=== PATIENT | female | born 1945 | race Hispanic/Latino ===

== ENCOUNTER 2017-01-07 11:47 | Observation (INO) | payer MEDICARE ==
[2017-01-07 11:59] VITALS: BMI 41.1
[2017-01-07 12:15] VITALS: RESP 18; TEMP 98.2
[2017-01-07] MEDS ORDERED: Tmp-Smz 800 mg-160 mg DS Tab PO STA (12:46)
[2017-01-07] MEDS ORDERED: TDAP Vaccine 0.5 mL Syr IM ONE (12:46)
--- NOTE | 2017-01-07 12:49 | ED PDOC ---
Arrival/HPI - General Chief Complaint: Female Genitourinary Time Seen by Provider: 01/07/17 12:14 Historian: Patient, Family - History of Present Illness Narrative History of Present Illness (Text): 01/07/17 15:24 71 yo F w/ pmh of DM, diverticulitis with h/o perforation requiring colostomy and reversal 5 years ago, presents with red, swollen and painful mass in the L buttock with possible infection. States that she has been using nystatin with no relief prompting ER visit. Denies any fever, chills, trauma, urinary symptoms , N/V, or abdominal pain. Of note, pt adds that her sugar has been in the 300s due to taking prednisone for possible Crohn's. Pt is also c/o 3 week h/o intermittent episodes of pain under the L breast which radiates to the upper abdomen, lasting for a few minutes, usually occurs when she is resting, is not related to exertion. Pt had an episode here of the same pain, which lasted for a few minutes and then subsided. States that she has a h/o a stomach ulcer in the past that perforated and she required surgery with a colostomy. Reports that her symptoms today feel similar to her prior episodes. Denies any N/V/D, melena, hematochezia, urinary symptoms, chest pain or SOB. States that she is currently following up with a GI doctor and has a f/ u appointment tomorrow since he had recent labs and an MRI done. MICHELLE Rodriguez Past Medical History - Provider Review Nursing Documentation Reviewed: Yes - Infectious Disease Hx of Infectious Diseases: None - Tetanus Immunization Tetanus Immunization: Unknown - Reproductive Menopause: Yes - Cardiac Hx Cardiac Disorders: Yes Hx Hypertension: Yes Hx Pacemaker: No - Pulmonary Hx Respiratory Disorders: Yes Hx Asthma: Yes - Neurological Hx Neurological Disorder: No Hx Paralysis: No - HEENT Hx HEENT Disorder: Yes Hx Deafness: (hearing aids both ears) Other/Comment: glasses - Renal Hx Renal Disorder: No - Endocrine/Metabolic Hx Endocrine Disorders: Yes Hx Diabetes Mellitus Type 2: Yes - Hematological/Oncological Hx Blood Disorders: No Hx Blood Transfusions: No Hx Blood Transfusion Reaction: No - Integumentary Hx Dermatological Disorder: No Hx Basal Cell Carcinoma: No Hx Eczema: No Hx Melanoma: No Hx Psoriasis: No Hx Squamous Cell Carcinoma: No - Musculoskeletal/Rheumatological Hx Musculoskeletal Disorders: Yes (OSTEO) Hx Back Pain: Yes - Gastrointestinal Hx Gastrointestinal Disorders: Yes Hx Crohn's Disease: Yes Hx Diverticulitis: Yes Hx Gall Bladder Disease: No Hx Gastroesophageal Reflux: No Hx Gastrointestinal Ulcer: No Hx Ileostomy: No Hx Liver Failure: No Hx Pancreatitis: No HX Swallowing Problems: No - Genitourinary/Gynecological Hx Genitourinary Disorders: No Hx Hematuria: No Hx Incontinence: No Hx Prostate Problems: No Hx Reproductive Disorders: No Hx Sexually Transmitted Diseases: No Hx Urinary Tract Infection: No - Psychiatric Hx Psychophysiologic Disorder: No Hx Emotional Abuse: No Hx Physical Abuse: No Hx Substance Use: No - Surgical History Other/Comment: R breast partial masectomy. colostomy/reverse - Anesthesia Hx Anesthesia: Yes Hx Anesthesia Reactions: Yes (RESP ARREST AFTER COLOSTOMY; NAUSEA/VOMITING) Hx Malignant Hyperthermia: No - Suicidal Assessment Feels Threatened In Home Enviroment: No Family/Social History - Physician Review Nursing Documentation Reviewed: Yes Family/Social History: No Known Family HX Smoking Status: Former Smoker Hx Alcohol Use: No Hx Substance Use: No Hx Substance Use Treatment: No Allergies/Home Meds Allergies/Adverse Reactions: Allergies EGG WHITES Adverse Reaction (Uncoded 01/07/17 11:58) RASH Home Medications: Home Meds Medication Instructions Recorded Confirmed GlipiZIDE [Glucotrol] 5 mg PO DAILY 11/07/13 01/07/17 metFORMIN [glucOPHAGE] 500 mg PO BID 11/07/13 01/07/17 Naproxen Sodium [Aleve] 2 tab PO QAM PRN 03/03/14 01/07/17 Lisinopril/Hydrochlorothiazide 1 tab PO QAM 05/23/15 01/07/17 [Lisinopril-Hctz 20-12.5 mg Tab] Cholecalciferol (Vitamin D3) 50,000 unit PO SAT 11/20/15 01/07/17 [Vitamin D3] oxyCODONE/Acetaminophen [Percocet 1 tab PO Q12H PRN 08/06/16 01/07/17 5/325 mg Tab] Prednisone [Deltasone] 20 mg PO BID 01/07/17 01/07/17 Review of Systems - Review of Systems Constitutional: Normal. absent: Fatigue, Weight Change, Fevers Respiratory: Normal. absent: SOB, Cough, Sputum Cardiovascular: Normal. absent: Chest Pain, Palpitations, Edema Gastrointestinal: Normal, Abdominal Pain. absent: Stool Changes, Constipation, Appetite Changes, Hematochezia Genitourinary Female: Normal. absent: Dysuria, Frequency, Hematuria Musculoskeletal: Normal. absent: Arthralgias, Back Pain, Neck Pain Skin: Normal, Rash, Abscess. absent: Pruritis, Skin Lesions Physical Exam Vital Signs Reviewed: Yes Vital Signs Temp Pulse Resp BP Pulse Ox 01/07/17 19:17 94 H 18 98 01/07/17 17:39 96 H 18 126/65 97 01/07/17 15:08 89 18 123/61 97 01/07/17 14:24 92 H 18 125/66 97 01/07/17 12:14 98.2 F 100 H 18 126/68 99 Temperature: Afebrile Blood Pressure: Normal Pulse: Regular Respiratory Rate: Normal Appearance: Positive for: Well-Appearing, Non-Toxic, Comfortable Pain Distress: None Mental Status: Positive for: Alert and Oriented X 3 - Systems Exam Head: Present: Atraumatic, Normocephalic Pupils: Present: PERRL Extroacular Muscles: Present: EOMI Conjunctiva: Present: Normal. No: Injected, Icteric Mouth: Present: Moist Mucous Membranes Neck: Present: Normal Range of Motion. No: MIDLINE TENDERNESS Respiratory/Chest: Present: Clear to Auscultation, Good Air Exchange. No: Respiratory Distress, Accessory Muscle Use, Wheezes, Rales, Rhonchi Cardiovascular: Present: Regular Rate and Rhythm, Normal S1, S2. No: Murmurs Abdomen: Present: Normal Bowel Sounds, Scars (colostomy scar to the LLQ, vertical scar to the mid abdomen). No: Tenderness, Distention, Peritoneal Signs , Rebound, Guarding, Mass/Organomegaly Back: Present: Normal Inspection. No: CVA Tenderness, Midline Tenderness Upper Extremity: Present: Normal Inspection, Normal ROM. No: Edema Lower Extremity: Present: Normal Inspection, Normal ROM. No: Edema Neurological: Present: GCS=15, CN II-XII Intact, Speech Normal Skin: Present: Warm, Dry, Rashes (erythema to the L labia majora), Normal Color , Abscess (open draining abscess in the L buttock proximal to the perineum, draining of yellow purulent material with no surrounding cellulitis) Medical Decision Making ED Course and Treatment: 01/07/17 12:50 71 yo F presents with several week h/o abscess to the L buttock area, reports using nystatin cream with no improvement. On exam, pt noted to have an open draining abscess in the L buttock proximal to the perineum with no surrounding cellulitis, there is noted caroline infection in the L inguinal area and L labia majora. Abscess was further drained and irrigated with NS, clean dressing was applied and wound cx was sent. Pt medicated with tdap IM, bactrim 2 tabs po and keflex po. After abscess was drained, the pt then c/o pain under her L breast radiating to her upper abdomen. Considering her history and exam, labs, EKG and CXR ordered. Pt placed in ED observation for further assessment and treatment. - Lab Interpretations Microbiology Results: Microbiology Results 01/07/17 13:22 Abscess - Buttocks Gram Stain - Final Lab Results: 01/07/17 14:10 01/07/17 14:10 Lab Results 01/07/17 14:40: Urine Color Yellow, Urine Appearance Cloudy, Urine pH 7.0, Ur Specific [place] 1.020, Urine Protein 30 H, Urine Glucose (UA) >=1000, Urine Ketones 15 H, Urine Blood Large H, Urine Nitrate Negative, Urine Bilirubin Negative, Urine Urobilinogen 0.2, Ur Leukocyte Esterase Moderate H, Urine RBC 10 - 15, Urine WBC Tntc, Ur Epithelial Cells 3 - 4, Urine Bacteria Mod, Urine Other Uyeast 01/07/17 14:10: Sodium 136, Potassium 4.4, Chloride 100, Carbon Dioxide 29, Anion Gap 11, BUN 18, Creatinine 0.7, Est GFR ( Amer) > 60, Est GFR (Non- Af Amer) > 60, Random Glucose 276 H, Calcium 9.2, Magnesium 1.9, Total Bilirubin 0.5, AST 29, ALT 54, Alkaline Phosphatase 128, Lactate Dehydrogenase 653, Total Creatine Kinase < 20 L, Troponin I < 0.01, Total Protein 6.3, Albumin 2.9 L, Globulin 3.4, Albumin/Globulin Ratio 0.9 L 01/07/17 14:10: PT 11.1, INR 1.03, APTT 21.9 L 01/07/17 14:10: WBC 9.6, RBC 3.83, Hgb 11.0 L, Hct 33.4 L, MCV 87.2, MCH 28.7, MCHC 32.9, RDW 14.9 H, Plt Count 316, MPV 10.1, Gran % 82.8 H, Lymph % (Auto) 10.4 L, Dare % (Auto) 6.2 H, Eos % (Auto) 0.3 L, Baso % (Auto) 0.3, Gran # 7.97 H, Lymph # 1.0 L, Dare # 0.6, Eos # 0.0, Baso # 0.03 01/07/17 13:12: POC Glucose (mg/dL) 293 H - RAD Interpretation Narrative RAD Interpretations (Text): 01/07/17 18:07 CT ABDOMEN & PELVIS WITH IV CONTRAST : FINDINGS: LOWER THORAX: Unremarkable. LIVER: Unremarkable. No gross lesion or ductal dilatation. GALLBLADDER AND BILE DUCTS: Unremarkable. PANCREAS: Unremarkable. No gross lesion or ductal dilatation. SPLEEN: Unremarkable. ADRENALS: Unremarkable. No mass. KIDNEYS AND URETERS: Left lower pole low-density mass, 3.7 cm. This measures 36 Hounsfield units. It is not seen on prior CT examination. Recommend correlation with ultrasound examination on a nonemergent basis. VASCULATURE: Unremarkable. No aortic aneurysm. BOWEL: Sigmoid diverticulosis without evidence of diverticulitis. Evidence of anastomosis at rectosigmoid junction. Previous left lower ventral hernia has been repaired. No bowel obstruction. No other abnormal bowel loops. APPENDIX: Status post appendectomy. PERITONEUM: Unremarkable. No free fluid. No free air. LYMPH NODES: Unremarkable. No enlarged lymph nodes. BLADDER: Unremarkable. REPRODUCTIVE: Unremarkable uterus BONES: No acute fracture. OTHER FINDINGS: None. IMPRESSION: No acute abnormality. Sigmoid diverticulosis without evidence of diverticulitis. Incidentally noted 3.7 cm left lower pole mass, 36 Hounsfield units attenuation. Recommend correlation with ultrasound examination on a nonemergent basis. This is a new finding since prior CT examination. Radiology Orders: 01/07/17 13:50 CHEST PORTABLE [RAD] Stat 01/07/17 15:45 ABDOMEN & PELVIS [ABD & PELVIS IV CONTRAST ONLY] [CT] Stat - Medication Orders Current Medication Orders: Discontinued Medications Cephalexin Monohydrate (Keflex) 500 mg PO STAT STA PRN Reason: Protocol Stop: 01/07/17 12:47 Last Admin: 01/07/17 13:16 Dose: 500 mg Iohexol (Omnipaque 350 100 Ml) Confirm Administered Dose 350 mg .ROUTE .STK-MED ONE Stop: 01/07/17 16:05 Pantoprazole Sodium (Protonix Inj) 80 mg IVP STAT STA Stop: 01/07/17 15:49 Last Admin: 01/07/17 16:26 Dose: 80 mg Tetanus/Reduced Diphtheria/Acell Pertussis (Boostrix Vaccine Inj) 0.5 ml IM .ONCE ONE Stop: 01/07/17 12:47 Last Admin: 01/07/17 13:16 Dose: 0.5 ml Trimethoprim/Sulfamethoxazole (Bactrim Ds Tab) 2 tab PO STAT STA PRN Reason: Protocol Stop: 01/07/17 12:47 Last Admin: 01/07/17 13:16 Dose: 2 tab ED OBSERVATION Date of observation admission: 01/07/17 Time of observation admission: 13:00 - Observation admission statement Patient is being placed in observation because:: Due to pt's history and current symptoms, labs ordered and will reassess pt for further need of any other diagnostic treatment. - Goals of Observation Goals of observation are:: To monitor pt's signs and symptoms. - Progress Note Progress Note: 01/07/17 16:00 CXR: NAD, as read by PA EKG: NSR at 94 bpm, normal axis, (-) acute ST changes, as read by JUAN CARLOS Labs reviewed: hgb 11 / hct 33, glucose 276, trop (-), ua +protiens, glucose > 1000, +UTI, +yeast. Lab results d/w the pt in great detail. On re-evaluation, pt is laying in bed comfortably. Abdomen remains soft with mild L sided abdominal tenderness, no rebound or guarding. Rectal exam performed by JUAN CARLOS with RN at the bedside : (-) tenderness, (-) edema, (-) erythema, (+) brown stool, guaiac (+). CT A/P with IV contrast ordered, considering her history and current abscess in the buttock to r/o diverticulitis, fistula, and perirectal abscess. Pt agrees with current plan. Call placed to Dr. Mishra. Case d/w Dr. 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 Otherwise has no further recommends at this time and agrees with CT of the abdomen/pelvis and the pt can f/u as an outpt regarding her (+) guaiac result. 01/07/17 18:00 CT A/P results reviewed and shows no acute findings. Call placed to Dr. Burks and case was discussed with him in great detail. States that the pt already has an appointment with him tomorrow in the wound center and will f/u the pt's abscess. Agrees with current antibiotic regimen provided. Pt notified of further plan of care for outpt f/u with Dr. Burks tomorrow in the wound care center. - PA / SPEECH CORRECTION ASSISTANT / Resident Statement / has reviewed & agrees with the documentation as recorded. Disposition/Present on Arrival - Present on Arrival Any Indicators Present on Arrival: Yes History of DVT/PE: No History of Uncontrolled Diabetes: Yes Urinary Catheter: No History of Decub. Ulcer: No History Surgical Site Infection Following: None - Disposition Have Diagnosis and Disposition been Completed?: Yes Diagnosis: Abscess, Candidal intertrigo, UTI (urinary tract infection), Abdominal pain, GI bleed Disposition: HOME/ ROUTINE Disposition Time: 13:00 (Pt placed in ED observation) Patient Plan: Discharge Patient Problems: Current Active Problems Problem Status Onset Abdominal pain Acute Abscess Acute Candidal intertrigo Acute UTI (urinary tract infection) Acute Condition: STABLE
--- NOTE | 2017-01-07 14:27 | RAD ---
HISTORY: chest pain COMPARISON: 04/30/2016 FINDINGS: LUNGS: No active pulmonary disease. PLEURA: No significant pleural effusion identified, no pneumothorax apparent. CARDIOVASCULAR: Probable top-normal heart size. Prior pulmonary vascular congestion -less prominent now OSSEOUS STRUCTURES: Bilateral shoulder arthrosis and moderate thoracic spondylosis VISUALIZED UPPER ABDOMEN: Similar asymmetrically elevated right hemidiaphragm with right cardiophrenic fat pad -similar-appearing OTHER FINDINGS: None. IMPRESSION: No active disease.
[2017-01-07 15:01] LABS: ALB/GLOB RATIO 0.9 (1.1-1.8); ALBUMIN 2.9 g/dL (3.0-4.8); ALT/SGPT 54 U/L (7-56); AST/SGOT 29 U/L (15-39); BLOOD UREA NITROGEN 18 mg/dL (7-21); CALCIUM 9.2 mg/dL (8.4-10.5); GFR AFRICAN-AMERICAN > 60; GFR NON-AFRICAN AMERICAN > 60; MAGNESIUM 1.9 mg/dL (1.7-2.2)
[2017-01-07 15:02] LABS: BASO # 0.03 K/mm3 (0.0-2.0); BASO % 0.3 % (0.0-3.0); EOS % 0.3 % (1.5-5.0); GRAN # 7.97 (1.4-6.5); GRAN % 82.8 % (50.0-68.0); LYMPH % 10.4 % (22.0-35.0); MEAN CELL VOLUME 87.2 fL (80.0-105.0); MEAN CORPUSCULAR HEMOGLOBIN 28.7 pg (25.0-35.0); MEAN CORPUSCULAR HGB CONC 32.9 g/dl (31.0-37.0); MEAN PLATELET VOLUME 10.1 fl (7.0-11.0); MONO # 0.6 (0.1-0.6); MONO % 6.2 % (1.0-6.0); PLATELET COUNT 316 10^3/uL (120.0-450.0); RBC 3.83 10^6/uL (3.5-6.1); RED CELL DISTRIBUTION WIDTH 14.9 % (11.5-14.5); WHITE BLOOD COUNT 9.6 10^3/ul (4.5-11.0)
[2017-01-07 15:07] LABS: URINE BILIRUBIN NEGATIVE (NEGATIVE); URINE BLOOD LARGE (NEGATIVE); URINE GLUCOSE (UA) >=1000 mg/dL (NEGATIVE); URINE LEUKOCYTE ESTERASE MODERATE Leu/uL (NEGATIVE); URINE NITRATE NEGATIVE (NEGATIVE); URINE PROTEIN 30 mg/dL (<30 mg/dL); URINE UROBILINOGEN 0.2 E.U./dL (<1 E.U./dL)
[2017-01-07 15:09] LABS: URINE APPEARANCE CLOUDY (CLEAR); URINE COLOR YELLOW (YELLOW)
[2017-01-07 15:11] LABS: INR 1.03 (0.93-1.08); PARTIAL THROMBOPLASTIN TIME 21.9 Seconds (23.7-30.8); PROTHROMBIN TIME 11.1 Seconds (9.9-11.8)
[2017-01-07 15:13] LABS: URINE WBC TNTC /hpf (0-6)
[2017-01-07 15:15] LABS: URINE BACTERIA MOD (NEG)
[2017-01-07 15:15] LABS: TROPONIN I < 0.01 ng/mL
[2017-01-07] MEDS ORDERED: Iohexol 350 MG/100 ML VIAL ONE (16:04)
--- NOTE | 2017-01-07 17:07 | CT ---
PROCEDURE: CT Abdomen and Pelvis with contrast HISTORY: abd pain, h/o diverticulosis, GI bleed COMPARISON: 03/02/2014 TECHNIQUE: Contrast dose: 97 mL Omnipaque 350 Radiation dose: Total exam DLP = 1323.22 mGy-cm. This CT exam was performed using one or more of the following dose reduction techniques: Automated exposure control, adjustment of the mA and/or kV according to patient size, and/or use of iterative reconstruction technique. FINDINGS: LOWER THORAX: Unremarkable. LIVER: Unremarkable. No gross lesion or ductal dilatation. GALLBLADDER AND BILE DUCTS: Unremarkable. PANCREAS: Unremarkable. No gross lesion or ductal dilatation. SPLEEN: Unremarkable. ADRENALS: Unremarkable. No mass. KIDNEYS AND URETERS: Left lower pole low-density mass, 3.7 cm. This measures 36 Hounsfield units. It is not seen on prior CT examination. Recommend correlation with ultrasound examination on a nonemergent basis. VASCULATURE: Unremarkable. No aortic aneurysm. BOWEL: Sigmoid diverticulosis without evidence of diverticulitis. Evidence of anastomosis at rectosigmoid junction. Previous left lower ventral hernia has been repaired. No bowel obstruction. No other abnormal bowel loops. APPENDIX: Status post appendectomy. PERITONEUM: Unremarkable. No free fluid. No free air. LYMPH NODES: Unremarkable. No enlarged lymph nodes. BLADDER: Unremarkable. REPRODUCTIVE: Unremarkable uterus BONES: No acute fracture. OTHER FINDINGS: None. IMPRESSION: No acute abnormality. Sigmoid diverticulosis without evidence of diverticulitis. Incidentally noted 3.7 cm left lower pole mass, 36 Hounsfield units attenuation. Recommend correlation with ultrasound examination on a nonemergent basis. This is a new finding since prior CT examination.
[2017-01-07 18:04] VITALS: BP 126/65
[2017-01-07 19:18] VITALS: PULSE 94; O2SAT 98
--- NOTE | 2017-01-08 13:19 | CARD ---
APPROVED REPORT EKG Measurement Heart [id number] <Conclusion> Normal sinus rhythm Low voltage QRS Inferior infarct, age undetermined Abnormal ECG
== END 2017-01-08 08:34 | disposition home or self-care (01) ==
LOC: ED 11:47 → EROBSV 17:55
PROVIDERS: ADMIT Emergency Medicine; ATTEND Emergency Medicine
DX: K92.2 Gastrointestinal hemorrhage, unspecified (principal); N39.0 Urinary tract infection, site not specified; L02.31 Cutaneous abscess of buttock; B37.2 Candidiasis of skin and nail; R10.9 Unspecified abdominal pain; I10 Essential (primary) hypertension; E11.9 Type 2 diabetes mellitus without complications; Z87.891 Personal history of nicotine dependence
CPT/HCPCS: 72HRC; 87181

== ENCOUNTER 2017-01-08 14:59 | Inpatient (IN) | payer MEDICARE ==
[2017-01-08 15:05] VITALS: BMI 41.1
[2017-01-08] MEDS ORDERED: Vancomycin 1gm in NS 250ml 1 GM/250 ML BAG IVPB STA (15:23)
[2017-01-08] MEDS ORDERED: Sodium Chloride 0.9% 1,000 ML IV STA (15:28)
--- NOTE | 2017-01-08 15:33 | ED PDOC ---
Arrival/HPI - General Chief Complaint: Groin Pain Time Seen by Provider: 01/08/17 15:13 - History of Present Illness Narrative History of Present Illness (Text): 01/08/17 15:28 71yo female, hx of newly diagnosed Crohn's disease, with a non-healing peronieal abscess. Sent into the ER for admission. Denies f/c. Labs and CT done yesterday. States she has pain in the area. Past Medical History - Provider Review Nursing Documentation Reviewed: Yes - Infectious Disease Hx of Infectious Diseases: None - Tetanus Immunization Tetanus Immunization: Unknown - Cardiac Hx Cardiac Disorders: Yes Hx Hypertension: Yes Hx Pacemaker: No - Pulmonary Hx Respiratory Disorders: Yes Hx Asthma: Yes - Neurological Hx Neurological Disorder: No Hx Paralysis: No - HEENT Hx HEENT Disorder: Yes Hx Deafness: (hearing aids both ears) Other/Comment: glasses - Renal Hx Renal Disorder: No - Endocrine/Metabolic Hx Endocrine Disorders: Yes Hx Diabetes Mellitus Type 2: Yes - Hematological/Oncological Hx Blood Disorders: No Hx Blood Transfusions: No Hx Blood Transfusion Reaction: No - Integumentary Hx Dermatological Disorder: No Hx Basal Cell Carcinoma: No Hx Eczema: No Hx Melanoma: No Hx Psoriasis: No Hx Squamous Cell Carcinoma: No - Musculoskeletal/Rheumatological Hx Musculoskeletal Disorders: Yes (OSTEO) Hx Back Pain: Yes Hx Unsteady Gait: Yes - Gastrointestinal Hx Gastrointestinal Disorders: Yes Hx Crohn's Disease: Yes Hx Diverticulitis: Yes Hx Gall Bladder Disease: No Hx Gastroesophageal Reflux: No Hx Gastrointestinal Ulcer: No Hx Ileostomy: No Hx Liver Failure: No Hx Pancreatitis: No HX Swallowing Problems: No - Genitourinary/Gynecological Hx Genitourinary Disorders: No Hx Hematuria: No Hx Incontinence: No Hx Prostate Problems: No Hx Reproductive Disorders: No Hx Sexually Transmitted Diseases: No Hx Urinary Tract Infection: No - Psychiatric Hx Psychophysiologic Disorder: No Hx Emotional Abuse: No Hx Physical Abuse: No Hx Substance Use: No - Surgical History Other/Comment: R breast partial masectomy. colostomy/reverse - Anesthesia Hx Anesthesia: Yes Hx Anesthesia Reactions: Yes (RESP ARREST AFTER COLOSTOMY; NAUSEA/VOMITING) Hx Malignant Hyperthermia: No - Suicidal Assessment Feels Threatened In Home Enviroment: No Family/Social History Family/Social History: Unknown Family HX Smoking Status: Former Smoker Hx Alcohol Use: No Hx Substance Use: No Hx Substance Use Treatment: No Allergies/Home Meds Allergies/Adverse Reactions: Allergies EGG WHITES Adverse Reaction (Uncoded 01/08/17 15:05) RASH Home Medications: Home Meds Medication Instructions Recorded Confirmed GlipiZIDE [Glucotrol] 5 mg PO DAILY 11/07/13 01/08/17 metFORMIN [glucOPHAGE] 500 mg PO BID 11/07/13 01/08/17 Naproxen Sodium [Aleve] 2 tab PO QAM PRN 03/03/14 01/08/17 Lisinopril/Hydrochlorothiazide 1 tab PO QAM 05/23/15 01/08/17 [Lisinopril-Hctz 20-12.5 mg Tab] Cholecalciferol (Vitamin D3) 50,000 unit PO SAT 11/20/15 01/08/17 [Vitamin D3] oxyCODONE/Acetaminophen [Percocet 1 tab PO Q12H PRN 08/06/16 01/08/17 5/325 mg Tab] Prednisone [Deltasone] 20 mg PO BID 01/07/17 01/08/17 Physical Exam - Physical Exam Narrative Physical Exam (Text): 01/08/17 15:33 - Review of Systems Constitutional: Normal. absent: Fatigue, Weight Change, Fevers Eyes: Normal ENT: denies sore throat, denies tristhmus Respiratory: Normal. absent: SOB, Cough, Sputum Cardiovascular: absent: Chest Pain, Palpitations, Syncope Gastrointestinal: Normal. absent: Abdominal Pain, Diarrhea, Nausea, Vomiting Genitourinary: Normal. absent: Dysuria, Frequency, Hematuria, vaginal bleeding Musculoskeletal: Normal. absent: Arthralgias, Back Pain, Neck Pain Skin: abscess. no rashes, no erythema Neurological: absent: Focal Weakness Endocrine: Normal Hemo/Lymphatic: Normal Psychiatric: No suicidal or homicidal ideations Physical exam Patient appears age appropriate in no distress, speaking full sentences without difficulty - Systems Exam Head: Present: Atraumatic, Normocephalic Pupils: Present: PERRL Extroacular Muscles: Present: EOMI Conjunctiva: Present: Normal Mouth: Present: Moist Mucous Membranes Neck: Present: Normal Range of Motion. No: MIDLINE TENDERNESS, Paraspinal Tenderness Respiratory/Chest: Present: Clear to Auscultation, Good Air Exchange. No: Respiratory Distress, Accessory Muscle Use, Tachypneic Cardiovascular: Present: Regular Rate and Rhythm, Normal S1, S2, Peripheal Pulses Present. No: Murmurs Abdomen: Present: Normal Bowel Sounds. No: Tenderness, Distention, Peritoneal Signs, Rebound, Guarding Back: Present: Normal Inspection. No: Midline Tenderness, Paraspinal Tenderness Upper Extremity: Present: Normal Inspection. No: Cyanosis, Edema Lower Extremity: Present: Normal Inspection. No: Edema Neurological: Present: GCS=15, Speech Normal, cranial nerves II through XII fully intact with no cerebellar abnormality, neurosensory fully intact. No focal neurological deficits. Skin: Present: Elaina RN present during examination. Peroneal abscess, draining, fluctuant, with a likely tract since it appears to be draining from 2 areas Lymphatic: Present: OX3, NI, NC Psychiatric: Present: Alert, Oriented x 3, Normal Insight, Normal Concentration Vital Signs Reviewed: Yes Vital Signs Temp Pulse Resp BP Pulse Ox 01/08/17 15:11 98.1 F 81 19 94/63 L 100 Temperature: Afebrile Blood Pressure: Hypotensive Pulse: Regular Respiratory Rate: Normal Appearance: Positive for: Well-Appearing Pain Distress: Mild Mental Status: Positive for: Alert and Oriented X 3 Medical Decision Making ED Course and Treatment: 01/08/17 15:[address] Chiang, accepted admission pt states she was sent by Dr. Burks residential property tax appraiser aware pt aware of and agrees with admission plan glu high, fluids ordered abx ordered pt had CT and labs done yesterday - Lab Interpretations Lab Results: Lab Results 01/08/17 15:21: POC Glucose (mg/dL) 408 H* Disposition/Present on Arrival - Present on Arrival Any Indicators Present on Arrival: Yes History of DVT/PE: No History of Uncontrolled Diabetes: Yes Urinary Catheter: No History of Decub. Ulcer: No History Surgical Site Infection Following: None - Disposition Have Diagnosis and Disposition been Completed?: Yes Diagnosis: Abscess Disposition: HOSPITALIZED Disposition Time: 15:28 Patient Plan: Admission Condition: FAIR
--- NOTE | 2017-01-08 16:50 | CP.PCM.CON ---
History of Present Illness - History of Present Illness History of Present Illness: General Surgery Dr. Burks CC: Groin abscess HPI: Pt is a 71 year old female with a known history of uncontrolled DM and recently diagnosed Crohn's disease, who reports 2 month history of nonhealing, worsening abscess to the left gluteal region. Pt states that the wound is painful, and drains purulent discharge daily. Denies fevers, but admits to generalized malaise. Pt was started on Keflex yesterday by Dr. Burks. She had an abdominal CT at the time which showed a possible lower abdominal abscess. Pt was advised to return to the hospital for repeat CT for further examination. PMH: DM, HTN, arthritis, Crohn's Disease PSHX: L mastectomy x 3, L partial colon resection with reversal of colostomy placement secondary to perforated diverticulitis (2016) Allergies: egg whites Family hx: DM, HTN, NM (father @ 70 years old) Social hx: (+) former smoker 15 pack year history, quit 2004. PMD: Charline Review of Systems - Constitutional Constitutional: As Per HPI, Fatigue, Malaise. absent: Chills, Fever - Cardiovascular Cardiovascular: As Per HPI, Leg Edema, Pedal Edema. absent: Chest Pain, Dyspnea - Respiratory Respiratory: As Per HPI. absent: Cough, Dyspnea, Wheezing - Gastrointestinal Gastrointestinal: As Per HPI, Constipation, Cramping, Diarrhea. absent: Nausea , Vomiting - Musculoskeletal Additional comments: Diabetic neuropathy - Psychiatric Psychiatric: As Per HPI Past Patient History - Infectious Disease Hx of Infectious Diseases: None - Tetanus Immunizations Tetanus Immunization: Unknown - Past Social History Smoking Status: Former Smoker - CARDIAC Hx Cardiac Disorders: Yes Hx Hypertension: Yes Hx Pacemaker: No - PULMONARY Hx Respiratory Disorders: Yes Hx Asthma: Yes - NEUROLOGICAL Hx Neurological Disorder: No Hx Paralysis: No - HEENT Hx HEENT Problems: Yes Hx Deafness: (hearing aids both ears) Other/Comment: glasses - RENAL Hx Chronic Kidney Disease: No - ENDOCRINE/METABOLIC Hx Endocrine Disorders: Yes Hx Diabetes Mellitus Type 2: Yes - HEMATOLOGICAL/ONCOLOGICAL Hx Blood Disorders: No Hx Blood Transfusions: No Hx Blood Transfusion Reaction: No - INTEGUMENTARY Hx Dermatological Problems: No Hx Basil Cell: No Hx Eczema: No Hx Melanoma: No Hx Psoriasis: No Hx Squamous Cell: No - MUSCULOSKELETAL/RHEUMATOLOGICAL Hx Musculoskeletal Disorders: Yes (OSTEO) Hx Back Pain: Yes Hx Unsteady Gait: Yes - GASTROINTESTINAL Hx Gastrointestinal Disorders: Yes Hx Crohn's Disease: Yes Hx Diverticulitis: Yes Hx Gall Bladder Disease: No Hx Gastroesophageal Reflux: No Hx Ileostomy: No Hx Liver Failure: No Hx Pancreatitis: No HX Swallowing Problems: No - GENITOURINARY/GYNECOLOGICAL Hx Genitourinary Disorders: No Hx Hematuria: No Hx Incontinence: No Hx Reproductive Disorders: No Hx Sexually Transmitted Disorders: No Hx Urinary Tract Infection: No - PSYCHIATRIC Hx Psychophysiologic Disorder: No Hx Emotional Abuse: No Hx Physical Abuse: No Hx Substance Use: No - SURGICAL HISTORY Other/Comment: R breast partial masectomy. colostomy/reverse - ANESTHESIA Hx Anesthesia: Yes Hx Anesthesia Reactions: Yes (RESP ARREST AFTER COLOSTOMY; NAUSEA/VOMITING) Hx Malignant Hyperthermia: No Meds Allergies/Adverse Reactions: Allergies Allergy/AdvReac Type Severity Reaction Status Date / Time EGG WHITES AdvReac RASH Uncoded 01/08/17 15:05 - Medications Medications: Current Medications Vancomycin HCl (Vancomycin 1gm) 1 gm in 250 mls @ 133.333 mls/hr IVPB STAT STA PRN Reason: Protocol Stop: 01/08/17 17:15 Last Admin: 01/08/17 15:42 Dose: 133.333 mls/hr Physical Exam - Constitutional Appears: Non-toxic, No Acute Distress - Head Exam Head Exam: ATRAUMATIC, NORMOCEPHALIC - Eye Exam Eye Exam: EOMI, Normal appearance - ENT Exam ENT Exam: Mucous Membranes Moist - Neck Exam Neck exam: Positive for: Full Rom - Respiratory Exam Respiratory Exam: Clear to Auscultation Bilateral, NORMAL BREATHING PATTERN. absent: Accessory Muscle Use, Rales, Rhonchi, Wheezes, Respiratory Distress - Cardiovascular Exam Cardiovascular Exam: REGULAR RHYTHM, +S1, +S2. absent: Systolic Murmur - GI/Abdominal Exam GI & Abdominal Exam: Normal Bowel Sounds, Soft. absent: Distended, Tenderness Additional comments: Obese - Rectal Exam Rectal Exam: Deferred - Exam External exam: Lesions Additional comments: 1x1cm ulceration to the left gluteal fold, with tracking to the labial region - Extremities Exam Extremities exam: Positive for: normal capillary refill, pedal edema, pedal pulses present Additional comments: 3+ pitting edema to lower extremities and feet bilaterally - Neurological Exam Neurological exam: Alert, Oriented x3 - Psychiatric Exam Psychiatric exam: Normal Affect, Normal Mood - Skin Skin Exam: Dry, Normal Color, Warm Results - Vital Signs Recent Vital Signs: Last Vital Signs Temp 98.1 F 01/08/17 15:11 Pulse 81 01/08/17 15:11 Resp 19 01/08/17 15:11 BP 94/63 L 01/08/17 15:11 Pulse Ox 100 01/08/17 15:11 Assessment & Plan - Assessment and Plan (Free Text) Assessment: 71 year old female with left gluteal fold ulcer with tracking to the labial region Plan: - continue with current abx - continue with current medical management - repeat CT abdomen/pelvis with PO contrast scheduled for 01/10/17 Ave Zelaya DO PGY1
[2017-01-08] MEDS: Vancomycin 1gm in NS 250ml 1 GM/250 ML BAG IVPB SCH (19:35)
[2017-01-08] MEDS ORDERED: Insulin Regular 1 UNITS/0.01 ML ML SC ONE (21:27)
[2017-01-08] MEDS: Insulin Lispro (HUMAlog) HIGH Coverage SC SCH (21:54)
[2017-01-08] MEDS: Meropenem 1g/NS 100mL IVPB 1 GM/100 ML PIGGYBACK IVPB SCH (21:55)
[2017-01-08] MEDS ORDERED: Insulin Reg-LOW-Coverage SC SCH (22:00)
[2017-01-08] MEDS ORDERED: Pneumococcal 23-Valent Vaccine IM ONE (22:42)
[2017-01-09] MEDS: Meropenem 1g/NS 100mL IVPB 1 GM/100 ML PIGGYBACK IVPB SCH ×3 (05:07→22:00)
[2017-01-09] MEDS: Insulin Lispro (HUMAlog) HIGH Coverage SC SCH ×4 (08:22→22:01)
--- NOTE | 2017-01-09 09:57 | CP.PCM.PN ---
Subjective - Date & Time of Evaluation Date of Evaluation: 01/09/17 Time of Evaluation: 09:54 - Subjective Subjective: General Surgery progress note for Dr. Burks PT S&E at bedside. FAHAD. Patient is complaining of some pain. Patient denies any F/C, N/V. Patient states her BM are irregular due to her history of Crohn's Objective - Vital Signs/Intake and Output Vital Signs (last 24 hours): Temp Pulse Resp BP Pulse Ox 98.4 F 86 20 137/83 97 01/09/17 07:44 01/09/17 07:44 01/09/17 07:44 01/09/17 07:44 01/09/17 07:44 Intake and Output: 01/09/17 01/09/17 06:59 18:59 Intake Total 600 Balance 600 - Medications Medications: Current Medications Acetaminophen (Tylenol 325mg Tab) 650 mg PO Q4 PRN PRN Reason: Pain, Mild (1-3) Last Admin: 01/09/17 05:09 Dose: 650 mg Glipizide (Glucotrol) 5 mg PO DAILY [facility] Hydrochlorothiazide (Microzide) 12.5 mg PO DAILY [facility] Meropenem 1g/NS 100mL IVPB (Meropenem 1g/Ns 100ml Ivpb) 1 gm in 100 mls @ 100 mls/hr IVPB Q8 [facility] PRN Reason: Protocol Stop: 01/17/17 22:01 Last Admin: 01/09/17 05:07 Dose: 100 mls/hr Vancomycin HCl (Vancomycin 1gm) 1 gm in 250 mls @ 167 mls/hr IVPB Q12H [facility] PRN Reason: Protocol Stop: 01/17/17 19:31 Last Admin: 01/08/17 19:35 Dose: Not Given Insulin Human Lispro (Humalog High) 0 units SC ACHS [facility] PRN Reason: Protocol Last Admin: 01/09/17 08:22 Dose: 7 units Ketorolac Tromethamine (Toradol) 30 mg IVP Q6 PRN PRN Reason: Pain, moderate (4-7) Lactobacillus Acidophilus (Bacid Acidophilus) 1 cap PO DAILY [facility] Lisinopril (Zestril) 20 mg PO DAILY [facility] Prednisone (Prednisone Tab) 20 mg PO BID [facility] [place] Last Admin: 01/09/17 08:22 Dose: 20 mg - Constitutional Appears: No Acute Distress - Head Exam Head Exam: NORMAL INSPECTION, NORMOCEPHALIC - ENT Exam ENT Exam: Mucous Membranes Moist - Neck Exam Neck Exam: Full ROM, Normal Inspection - Respiratory Exam Respiratory Exam: NORMAL BREATHING PATTERN. absent: Accessory Muscle Use, Chest Wall Tenderness, Wheezes, Respiratory Distress, Stridor - Cardiovascular Exam Cardiovascular Exam: REGULAR RHYTHM. absent: Bradycardia, Tachycardia - GI/Abdominal Exam GI & Abdominal Exam: Normal Bowel Sounds. absent: Bruit, Distended, Firm, Guarding, Soft - Extremities Exam Extremities Exam: Full ROM, Pedal Edema Additional comments: 3+ pitting edema - Skin Skin Exam: Dry, Intact, Normal Color, Warm Additional comments: draining lesion on left inferior gluteal fold with tracking to the labia minora Assessment and Plan - Assessment and Plan (Free Text) Assessment: 71F presents with draining abscess on left inferior gluteal fold with tracking to the labia minora Plan: c/w diabetes management c/w antibiotics F/u Thursday CT PO contrast of abdomen and pelvis c/w wound care management, keep area dry. dressing changes PRN c/w current pain management d/w Dr. Vitaliy Zelaya, DO PGY1
[2017-01-09] MEDS: Vancomycin 1gm in NS 250ml 1 GM/250 ML BAG IVPB SCH ×2 (10:22→22:00)
[2017-01-09] MEDS: Lactobacillus Acidophilus 500 MU Cap PO SCH (11:00)
--- NOTE | 2017-01-09 11:55 | CP.PCM.CON ---
History of Present Illness - History of Present Illness History of Present Illness: 71 year old female with PMH of pyoderma gangrenosum of right breast area, Crohn' s disease, HTN, asthma, DM, arthritis, osteoporosis, morbid obesity with BMI 43 , history of colostomy, history of diverticulitis and dvierticular abscess, S/P repair of umbilical hernia, S/P knee surgery came in to [facility] because of a 2 month history of a non-healing wound on her left gluteal area, which has been painful especially with pressure. She was seen by Dr. Burks who started her on Keflex a day prior to admission. CT scan of the abdomen and pelvis suggested possible sinus tract from the gluteal region into the labial area. She had some discharge from the gluteal wound yesterday. She denies fever or chills, no nausea or vomiting, no chest pain, no SOB, no headache or dizziness, no abdominal pain, no diarrhea, no dysuria. She denies animal contacts or insect bites and has not traveled outside of [place] in the past 3 months. Infectious Diseases consult is requested to further evaluate and manage. Review of Systems - Review of Systems All systems: reviewed and no additional remarkable complaints except (as per HPI ) Past Patient History - Infectious Disease Hx of Infectious Diseases: None - Tetanus Immunizations Tetanus Immunization: Unknown - Past Social History Smoking Status: Former Smoker - CARDIAC Hx Cardiac Disorders: Yes Hx Hypertension: Yes Hx Pacemaker: No - PULMONARY Hx Respiratory Disorders: Yes Hx Asthma: Yes - NEUROLOGICAL Hx Neurological Disorder: No - HEENT Hx HEENT Problems: Yes Hx Deafness: (hearing aids both ears) Other/Comment: glasses - RENAL Hx Chronic Kidney Disease: No - ENDOCRINE/METABOLIC Hx Endocrine Disorders: Yes Hx Diabetes Mellitus Type 2: Yes - HEMATOLOGICAL/ONCOLOGICAL Hx Blood Disorders: No - INTEGUMENTARY Hx Dermatological Problems: Yes (pyoderma gangrenosum) Other/Comment: "small pimple" r breast became larger had it removed by dr quiros was ok for 2 yrs no cancer, then opened up 2nd sx done wound not healing was dx with dermagangrenous fed by abraham, had 3rd sx to remove more of the lesion 11/2015 now being treated at wound center by dr mindi burks and according to pt wound is healing except for one opening under breast which drains bloody fluid - MUSCULOSKELETAL/RHEUMATOLOGICAL Hx Falls: No - GASTROINTESTINAL Hx Gastrointestinal Disorders: Yes (obese) Hx Crohn's Disease: Yes Hx Diverticulitis: Yes Hx Gall Bladder Disease: No Hx Gastroesophageal Reflux: No Hx Ileostomy: No Hx Liver Failure: No Hx Pancreatitis: No HX Swallowing Problems: No Other/Comment: perforated diverticulum had colostomy and reversal 03/09/2014, colonoscopy 08/12/16 dx polyp, diverticulosis, s/p colon resection, hemorrhoids, r/o ibd - GENITOURINARY/GYNECOLOGICAL Hx Genitourinary Disorders: (fibroids, urinary frequency) Hx Hematuria: No Hx Incontinence: No Hx Sexually Transmitted Disorders: No Hx Urinary Tract Infection: No Other/Comment: swollen labia and draining wound started 2 months ago as a pimple , now draining bloody fluid painful worse with movement - PSYCHIATRIC Hx Substance Use: No - SURGICAL HISTORY Hx Appendectomy: Yes Other/Comment: 3 surgical procedures to excise lesion on r brreast, colostomy and reversal from perforated diverticulum,r knee arthoscopic sx, umbilical hernia repair, d and c x2, cystoscope/urreteral, r brreast bx's of non healing wound 06/09/16, ct scan guided diverticular abcess drainage 11/08/13, cystoscope insertion of b/l ureteral catheters - ANESTHESIA Hx Anesthesia: Yes Hx Anesthesia Reactions: Yes (RESP ARREST AFTER COLOSTOMY; NAUSEA/VOMITING) Hx Malignant Hyperthermia: No Meds Allergies/Adverse Reactions: Allergies Allergy/AdvReac Type Severity Reaction Status Date / Time EGG WHITES AdvReac RASH Uncoded 01/08/17 15:05 - Medications Medications: Current Medications Acetaminophen (Tylenol 325mg Tab) 650 mg PO Q4 PRN PRN Reason: Pain, Mild (1-3) Last Admin: 01/09/17 05:09 Dose: 650 mg Glipizide (Glucotrol) 5 mg PO DAILY [facility] Hydrochlorothiazide (Microzide) 12.5 mg PO DAILY [facility] Meropenem 1g/NS 100mL IVPB (Meropenem 1g/Ns 100ml Ivpb) 1 gm in 100 mls @ 100 mls/hr IVPB Q8 [facility] PRN Reason: Protocol Stop: 01/17/17 22:01 Last Admin: 01/09/17 05:07 Dose: 100 mls/hr Vancomycin HCl (Vancomycin 1gm) 1 gm in 250 mls @ 167 mls/hr IVPB Q12H [facility] PRN Reason: Protocol Stop: 01/17/17 19:31 Last Admin: 01/08/17 19:35 Dose: Not Given Insulin Human Lispro (Humalog High) 0 units SC ACHS [facility] PRN Reason: Protocol Last Admin: 01/08/17 21:54 Dose: Not Given Ketorolac Tromethamine (Toradol) 30 mg IVP Q6 PRN PRN Reason: Pain, moderate (4-7) Lactobacillus Acidophilus (Bacid Acidophilus) 1 cap PO DAILY [facility] Lisinopril (Zestril) 20 mg PO DAILY [facility] Prednisone (Prednisone Tab) 20 mg PO BID [facility] Last Admin: 01/08/17 21:55 Dose: 20 mg Physical Exam - Constitutional Appears: Non-toxic, No Acute Distress - Head Exam Head Exam: NORMAL INSPECTION - ENT Exam ENT Exam: Mucous Membranes Moist - Neck Exam Neck exam: Negative for: Lymphadenopathy, Meningismus - Respiratory Exam Respiratory Exam: Decreased Breath Sounds - Cardiovascular Exam Cardiovascular Exam: +S1, +S2 - GI/Abdominal Exam GI & Abdominal Exam: Soft. absent: Tenderness - Extremities Exam Additional comments: left gluteal area with dressings in place Results - Vital Signs Recent Vital Signs: Last Vital Signs Temp 98.1 F 01/08/17 22:29 Pulse 90 01/08/17 22:29 Resp 16 01/08/17 22:29 BP 125/69 01/08/17 22:29 Pulse Ox 98 01/08/17 18:52 - Labs Labs: Laboratory Results - last 24 hr 01/08/17 01/08/17 17:47 21:18 POC Glucose (mg/dL) 369 H > 500 H* Assessment & Plan - Assessment and Plan (Free Text) Plan: Assessment Consider gluteal abscess formation associated with sinus tract in a patient with Crohn's disease pyoderma gangrenosum of the right breast area Crohn's disease HTN asthma DM arthritis osteoporosis morbid obesity with BMI 43 history of colostomy history of diverticulitis and dvierticular abscess S/P repair of umbilical hernia S/P knee surgery Plan started patient on Vancomycin and Merrem pending blood cx, wound cx; CT scan will repeated tomorrow to further evaluate the area and Surgery is following will monitor clinically
--- NOTE | 2017-01-10 02:34 | HP ---
DATE: 01/09/2017 HISTORY OF PRESENT ILLNESS: Ms. Fritz is a 71-year-old female with history of pyoderma gangrenosum of the right breast. She underwent partial mastectomy . She is admitted with left groin abscess. CAT scan done on 01/07/2017 showed left lower pole mass 3.7 cm on the kidney. This was a new finding that was not seen on previous scans. The last scan was in 2013. She has history of diverticulitis, diverticular disease. Arthritis, diabetes mellitus x2. She is currently on IV antibiotics. Complaining of pain in the left leg. She also has swelling of both lower extremity for past few weeks. REVIEW OF SYSTEMS: As per HPI. Rest of 12-point review of systems reviewed and negative. PAST MEDICAL HISTORY: Hypertension, COPD, hearing aids both ears, diabetes mellitus x2, history of pyoderma gangrenosum of the right breast, and morbid obesity. PAST SURGICAL HISTORY: Partial mastectomy right breast, perforated diverticulitis, arthroscopic knee surgery, and umbilical hernia repair. Left diverticular abscess drainage, colostomy, reversal of colostomy. ALLERGIES: EGG WHITE CAUSES RASH. HOME MEDICATIONS: Tylenol 650 q. 6 hours p.r.n., glipizide 5 mg daily, hydrochlorothiazide 12.5 mg daily, lisinopril 20 mg daily, prednisone 20 mg p.o. b.i.d. FAMILY HISTORY : non contributory. PHYSICAL EXAMINATION GENERAL: Comfortable and in no acute distress. VITAL SIGNS: Temperature 98.7, heart rate 80 per minute, blood pressure 125/69, pulse ox is 98% room air. HEENT: Head is atraumatic, normocephalic. Oral mucosa moist. NECK: Supple. No lymphadenopathy in the neck. CHEST: Air entry present, equal, bilateral. No added sounds. CARDIOVASCULAR: S1, S2 normal. No murmur, no gallop. ABDOMEN: Soft, nontender. No hepatosplenomegaly. EXTREMITIES: Bilateral 2+ edema. Left thigh in dressing, abscess, and there is discharge from the left thigh. EDGER RUNNER: Alert, oriented x3. No focal, sensory, motor deficit. SKIN: No breakdown, dry, warm. SPINE: Nontender. LABORATORY DATA: White count 9.6, hemoglobin 11, hematocrit 33.4, platelet count 316. Sodium 136, potassium 4.4, BUN 18, creatinine 0.7, glucose 276. Alkaline phosphatase 128. ASSESSMENT AND PLAN: 1. Left groin abscess. 2. Crohn's disease. 3. Left renal mass. 4. Gastroesophageal reflux. 5. Arthritis. 6. Osteoporosis. PLAN: She will be admitted to the hospital. IV antibiotics, meropenem, and vancomycin started. ID consultation, Dr. Murphy requested. Tylenol 650 q. 4 hour p.r.n. for diabetes, Glucotrol 5 mg daily, insulin sliding scale, Toradol q. 6 hour p.r.n., prednisone 20 mg p.o. b.i.d. Continue hydrochlorothiazide 12.5 mg daily. Surgery consultation Dr. Burks requested. Consultation Dr. Guido Rodriguez requested for left renal mass 3.7 cm, for CT-guided biopsy. Discussed with the patient at length about this new left renal mass on the lower pole of the kidney which is fairly big at 3.7 cm. Possible incision and drainage of left groin abscess. Edita Mcdaniels MD MTDD
[2017-01-10] MEDS: Meropenem 1g/NS 100mL IVPB 1 GM/100 ML PIGGYBACK IVPB SCH ×3 (06:16→21:58)
[2017-01-10 07:55] LABS: % IRON SATURATION 31 % (20-55); IRON 71 ug/dL (45-180); TOTAL IRON BINDING CAPACITY 229 ug/dL (265-497)
[2017-01-10] MEDS: Vancomycin 1gm in NS 250ml 1 GM/250 ML BAG IVPB SCH ×2 (07:55→20:16)
[2017-01-10 08:02] LABS: HEMOGLOBIN 10.7 gm/dL (12.0-16.0); MEAN CELL VOLUME 87.8 fL (80.0-105.0); MEAN CORPUSCULAR HEMOGLOBIN 28.5 pg (25.0-35.0); MEAN CORPUSCULAR HGB CONC 32.4 g/dl (31.0-37.0); MEAN PLATELET VOLUME 9.6 fl (7.0-11.0); PLATELET COUNT 321 10^3/uL (120.0-450.0); RBC 3.76 10^6/uL (3.5-6.1); RED CELL DISTRIBUTION WIDTH 15.5 % (11.5-14.5); WHITE BLOOD COUNT 9.8 10^3/ul (4.5-11.0)
[2017-01-10 08:15] LABS: BLOOD UREA NITROGEN 18 mg/dL (7-21); CALCIUM 8.9 mg/dL (8.4-10.5); GFR AFRICAN-AMERICAN > 60; GFR NON-AFRICAN AMERICAN > 60
[2017-01-10] MEDS: Insulin Lispro (HUMAlog) HIGH Coverage SC SCH ×4 (08:18→22:03)
[2017-01-10] MEDS: Lactobacillus Acidophilus 500 MU Cap PO SCH (09:49)
[2017-01-10 10:02] LABS: BAND 5 % (0-2); LYMPHOCYTE 20 % (22.0-35.0); MONOCYTE 3 % (1.0-6.0); NEUTROPHIL 72 % (50.0-70.0); PLATELET ESTIMATE NORMAL (NORMAL)
--- NOTE | 2017-01-10 10:13 | PN ---
DATE: 01/10/2017 SUBJECTIVE: The patient is in bed, is seen earlier this morning, doing well. No fever. PHYSICAL EXAMINATION: VITAL SIGNS: Temperature 98, blood pressure 125/60, respiratory rate of 16, HEENT: Unremarkable. NECK: Supple. CARDIOPULMONARY: Normal S1 and S2. LUNGS: Decreased breath sounds. ABDOMEN: Soft, nontender. LABORATORY DATA: White count of 9.8, hemoglobin 10, platelets of 321. BUN of 18, creatinine of 0.9. ASSESSMENT AND PLAN: This is a 71-year-old female with a history of pyoderma gangrenosum of the right breast, Crohn's disease, hypertension, asthma, diabetes, osteoporosis, morbid obesity, history of colostomy, history of diverticulitis and diverticular abscess, history of repair of umbilical hernia, status post knee surgery, came into the hospital because of history of non-wound healing and gluteal abscess formation sinus tract and the patient with Crohn's disease and pyoderma gangrenosum of the right breast and hypertension, asthma, diabetes, currently on vancomycin, meropenem, waiting for CAT scan of the abdomen and pelvis and we will continue with vancomycin and meropenem. We will follow with you and check on the cultures. Shan Guzman MD
[2017-01-10] MEDS ORDERED: Barium Sulfate Susp 2.1% w/v, 2.0% w/w 450 mL Bottle PO ONE (11:03)
[2017-01-10 12:12] LABS: IMMUNOGLOBULIN G 782.9 mg/dL (700.0-1600.0)
[2017-01-10 12:13] LABS: IMMUNOGLOBULIN M < 25.0 mg/dL (40.0-230.0)
[2017-01-10 12:14] LABS: IMMUNOGLOBULIN A 538.2 mg/dL (70.0-400.0)
--- NOTE | 2017-01-10 13:04 | CP.PCM.PN ---
Subjective - Date & Time of Evaluation Date of Evaluation: 01/10/17 Time of Evaluation: 08:01 - Subjective Subjective: General Surgery Progress Note Dr Burks PT S&E at bedside. FAHAD. Patient is tolerating pain well. Patient is set to have CT PO Contrast for possible fistula today. Objective - Vital Signs/Intake and Output Vital Signs (last 24 hours): Temp Pulse Resp BP Pulse Ox 98.0 F 75 18 135/70 95 01/10/17 09:06 01/10/17 09:50 01/10/17 09:06 01/10/17 09:50 01/10/17 09:06 Intake and Output: 01/10/17 01/10/17 06:59 18:59 Intake Total 600 Balance 600 - Medications Medications: Current Medications Acetaminophen (Tylenol 325mg Tab) 650 mg PO Q4 PRN PRN Reason: Pain, Mild (1-3) Last Admin: 01/09/17 05:09 Dose: 650 mg Glipizide (Glucotrol) 5 mg PO DAILY [facility] Last Admin: 01/10/17 09:52 Dose: Not Given Hydrochlorothiazide (Microzide) 12.5 mg PO DAILY [facility] Last Admin: 01/10/17 09:49 Dose: 12.5 mg Meropenem 1g/NS 100mL IVPB (Meropenem 1g/Ns 100ml Ivpb) 1 gm in 100 mls @ 100 mls/hr IVPB Q8 [facility] PRN Reason: Protocol Stop: 01/17/17 22:01 Last Admin: 01/10/17 06:16 Dose: 100 mls/hr Vancomycin HCl (Vancomycin 1gm) 1 gm in 250 mls @ 167 mls/hr IVPB Q12H [facility] PRN Reason: Protocol Stop: 01/17/17 19:31 Last Admin: 01/10/17 07:55 Dose: 167 mls/hr Insulin Human Lispro (Humalog High) 0 units SC ACHS [facility] PRN Reason: Protocol Last Admin: 01/10/17 12:23 Dose: 7 units Ketorolac Tromethamine (Toradol) 30 mg IVP Q6 PRN PRN Reason: Pain, moderate (4-7) Lactobacillus Acidophilus (Bacid Acidophilus) 1 cap PO DAILY [facility] Last Admin: 01/10/17 09:49 Dose: 1 cap Lisinopril (Zestril) 20 mg PO DAILY [facility] Last Admin: 01/10/17 09:50 Dose: 20 mg Prednisone (Prednisone Tab) 20 mg PO BID [facility] Last Admin: 01/10/17 09:49 Dose: 20 mg - Labs Labs: 01/10/17 06:55 01/10/17 06:55 - Constitutional Appears: Well - Head Exam Head Exam: NORMAL INSPECTION, NORMOCEPHALIC - Eye Exam Eye Exam: EOMI, Normal appearance - ENT Exam ENT Exam: Mucous Membranes Moist - Neck Exam Neck Exam: Full ROM, Normal Inspection - GI/Abdominal Exam GI & Abdominal Exam: Soft, Normal Bowel Sounds. absent: Rigid, Tenderness, Mass - Extremities Exam Extremities Exam: Full ROM, Pedal Edema Additional comments: 3+ pitting edema - Neurological Exam Neurological Exam: Alert, Awake, Normal Gait, Oriented x3 - Psychiatric Exam Psychiatric exam: Normal Affect - Skin Skin Exam: Dry, Normal Color, Warm Assessment and Plan - Assessment and Plan (Free Text) Assessment: 71 F left inferior gluteal fold abscess with tracking to labia minora. Plan: c/w with current abx c/w medical management for pitting edema of bilateral lower extremities monitor the pyoderma gangrenosum for signs of further infection, expansion, drainage, bleeding. keep dressings on abscess site c/d/i, change dressing PRN f/u with CT Abdomen/Pelvis PO contrast today 01/10 d/w Dr. Vitaliy Zelaya, DO PGY1
[2017-01-10 13:12] LABS: FERRITIN 96.6 ng/mL
[2017-01-11] MEDS: Meropenem 1g/NS 100mL IVPB 1 GM/100 ML PIGGYBACK IVPB SCH ×3 (06:09→22:37)
[2017-01-11] MEDS: Vancomycin 1gm in NS 250ml 1 GM/250 ML BAG IVPB SCH (08:11)
[2017-01-11] MEDS: Insulin Lispro (HUMAlog) HIGH Coverage SC SCH ×4 (08:30→22:37)
--- NOTE | 2017-01-11 09:15 | CT ---
PROCEDURE: CT Abdomen and Pelvis without intravenous contrast HISTORY: labial abscess, crohn's disease, r/o fistula COMPARISON: 01/07/2017 TECHNIQUE: Without contrast.. Contrast Dose: 0 Radiation dose: Total exam DLP = 2245.19 mGy-cm. This CT exam was performed using one or more of the following dose reduction techniques: Automated exposure control, adjustment of the mA and/or kV according to patient size, and/or use of iterative reconstruction technique. FINDINGS: LOWER THORAX: Unremarkable. LIVER: Unremarkable. No gross lesion or ductal dilatation. GALLBLADDER AND BILE DUCTS: Gallstones seen in gallbladder neck. Additional calculus identified in distal cystic duct No mural thickening or pericholecystic fluid. In retrospect, these findings are unchanged compared to 01/07/2017. PANCREAS: Unremarkable. No gross lesion or ductal dilatation. SPLEEN: Unremarkable. ADRENALS: Unremarkable. No mass. KIDNEYS AND URETERS: Low-density left lower pole renal mass identified on CT examination of 01/07 is not appreciable on this noncontrast examination. Again correlation with ultrasound examination is recommended. VASCULATURE: Unremarkable. No aortic aneurysm. BOWEL: Mild sigmoid diverticulosis. No evidence of diverticulitis. Rectosigmoid anastomosis is again identified. No other abnormal bowel loops. APPENDIX: Not identified. Presumed status post appendectomy. PERITONEUM: Unremarkable. No free fluid. No free air. LYMPH NODES: Unremarkable. No enlarged lymph nodes. BLADDER: Unremarkable. REPRODUCTIVE: Normal uterus. BONES: No acute fracture. OTHER FINDINGS: Please note that additional imaging was performed through the perineum to the proximal thighs. There is gas seen within the subcutaneous soft tissues lateral to the left labia majora. There is a linear collection of bubbles extending towards the anal rectal complex but no definite fistulous connection is demonstrated. A linear collection of bubbles extends towards the medial upper thigh. There are no fluid collections identified. There is no evidence of cortney abscess. Nevertheless, this is felt likely to reflect an infectious or inflammatory process in this patient with known Crohn's disease. IMPRESSION: Subcutaneous gas lateral to left labia majora extending towards anorectal complex and towards medial upper posterior thigh. No evidence of cortney abscess. Cholelithiasis stones in gallbladder neck and a stone in the cystic duct. No evidence of cholecystitis. Additional minor findings as above.
[2017-01-11] MEDS: Lactobacillus Acidophilus 500 MU Cap PO SCH (09:49)
--- NOTE | 2017-01-11 10:35 | CP.PCM.PN ---
Subjective - Date & Time of Evaluation Date of Evaluation: 01/11/17 Time of Evaluation: 08:00 - Subjective Subjective: General Surgery- Dr. Burks PT S&E at bedside. NAEON. Patient is tolerating pain well.Denies N/V CP/SOB. NBPR. Dressing change done at bedside Objective - Vital Signs/Intake and Output Vital Signs (last 24 hours): Temp Pulse Resp BP Pulse Ox 97.4 F L 89 18 127/77 96 01/11/17 07:58 01/11/17 07:58 01/11/17 07:58 01/11/17 07:58 01/11/17 07:58 Intake and Output: 01/11/17 01/11/17 06:59 18:59 Intake Total 420 Balance 420 - Medications Medications: Current Medications Acetaminophen (Tylenol 325mg Tab) 650 mg PO Q4 PRN PRN Reason: Pain, Mild (1-3) Last Admin: 01/09/17 05:09 Dose: 650 mg Glipizide (Glucotrol) 5 mg PO DAILY [facility] Last Admin: 01/10/17 09:52 Dose: Not Given Hydrochlorothiazide (Microzide) 12.5 mg PO DAILY [facility] Last Admin: 01/11/17 09:49 Dose: 12.5 mg Meropenem 1g/NS 100mL IVPB (Meropenem 1g/Ns 100ml Ivpb) 1 gm in 100 mls @ 100 mls/hr IVPB Q8 [facility] PRN Reason: Protocol Stop: 01/17/17 22:01 Last Admin: 01/11/17 06:09 Dose: 100 mls/hr Insulin Human Lispro (Humalog High) 0 units SC ACHS [facility] PRN Reason: Protocol Last Admin: 01/11/17 08:30 Dose: 7 units Ketorolac Tromethamine (Toradol) 30 mg IVP Q6 PRN PRN Reason: Pain, moderate (4-7) Lactobacillus Acidophilus (Bacid Acidophilus) 1 cap PO DAILY [facility] Last Admin: 01/11/17 09:49 Dose: 1 cap Lisinopril (Zestril) 20 mg PO DAILY [facility] Last Admin: 01/11/17 09:49 Dose: 20 mg Metronidazole (Flagyl) 500 mg PO Q8 [facility] PRN Reason: Protocol Stop: 01/22/17 14:01 Prednisone (Prednisone Tab) 20 mg PO BID [facility] Last Admin: 01/11/17 09:49 Dose: 20 mg - Labs Labs: 01/10/17 06:55 01/10/17 06:55 - Constitutional Appears: No Acute Distress - Eye Exam Eye Exam: EOMI - ENT Exam ENT Exam: Mucous Membranes Moist - Respiratory Exam Respiratory Exam: NORMAL BREATHING PATTERN. absent: Accessory Muscle Use, Respiratory Distress - Cardiovascular Exam Cardiovascular Exam: REGULAR RHYTHM, +S1, +S2. absent: Gallop, Rubs - GI/Abdominal Exam GI & Abdominal Exam: Soft, Normal Bowel Sounds. absent: Distended, Tenderness - Rectal Exam Additional comments: drainage from inferior left gluteal fold - Neurological Exam Neurological Exam: Awake, Oriented x3 - Psychiatric Exam Psychiatric exam: Normal Affect - Skin Skin Exam: Normal Color, Warm Assessment and Plan - Assessment and Plan (Free Text) Assessment: 71F left inferior gluteal fold abscess with tracking to labia minora Plan: c/w with current abx c/w medical management for pitting edema of bilateral lower extremities monitor the pyoderma gangrenosum for signs of further infection, expansion, drainage, bleeding. keep dressings on abscess site c/d/i, change dressing PRN d/w Dr. Vitaliy Bolanos PGY1
--- NOTE | 2017-01-11 11:28 | PN ---
DATE: 01/11/2017 SUBJECTIVE: The patient is seen in bed and in no acute distress. Nontoxic. PHYSICAL EXAMINATION: VITAL SIGNS: Temperature is 97, blood pressure is 127/70, and respiratory rate of 18. HEENT: Unremarkable. NECK: Supple. HEART: Normal S1 and S2. LUNGS: Decreased breath sounds. ABDOMEN: Soft. BREASTS: Examination of the breast reveals much improved since my last exam last seen as an outpatient. LABORATORY DATA: Microbiology is noted and pending. White count is 9.8. The patient had a CAT scan of the abdomen and pelvis yesterday, no evidence of abscess, cholelithiasis, stones in the gallbladder neck, and stone in the cystic duct, and no evidence of cholecystitis. No fluid collection. ASSESSMENT AND PLAN: The patient is a 71-year-old female with a history of pyoderma gangrenosum of the right breast diagnosed with Crohn's disease, hypertension, asthma, diabetes mellitus, osteoporosis, morbid obesity, history of colostomy, history of diverticulitis, diverticular abscess, history of repair of umbilical hernia, now has a gluteal abscess formation, but no abscess on CAT scan, concerned about fistula, negative blood cultures, and we will continue the meropenem, discontinue the vancomycin, we will add p.o. Flagyl for possibility of fistula from the Crohn's disease where the wound appears to be chronically draining. There is an induration area underneath it, we will have surgical reevaluation, possible incision and drainage, also the CAT scan did not show as such and we will make further recommendations. Shan Guzman MD
--- NOTE | 2017-01-11 22:48 | CP.PCM.PN ---
Subjective - Date & Time of Evaluation Date of Evaluation: 01/10/17 Time of Evaluation: 13:00 - Subjective Subjective: DATE: 01/10/2017 HISTORY OF PRESENT ILLNESS: Ms. Fritz is a 71-year-old female with history of pyoderma gangrenosum of the right breast. She underwent partial mastectomy . She is admitted with left groin abscess. CAT scan done on 01/07/2017 showed left lower pole mass 3.7 cm on the kidney. This was a new finding that was not seen on previous scans. The last scan was in 2013. She has history of diverticulitis, diverticular disease. Arthritis, diabetes mellitus x2. She is currently on IV antibiotics. the left leg decreased. swelling of both lower extremity decreased. REVIEW OF SYSTEMS: As per HPI. Rest of 12-point review of systems reviewed and negative. PAST MEDICAL HISTORY: Hypertension, COPD, hearing aids both ears, diabetes mellitus x2, history of pyoderma gangrenosum of the right breast, and morbid obesity. PAST SURGICAL HISTORY: Partial mastectomy right breast, perforated diverticulitis, arthroscopic knee surgery, and umbilical hernia repair. Left diverticular abscess drainage, colostomy, reversal of colostomy. ALLERGIES: EGG WHITE CAUSES RASH. HOME MEDICATIONS: reviewed. FAMILY HISTORY : non contributory. PHYSICAL EXAMINATION GENERAL: Comfortable and in no acute distress. VITAL SIGNS: reviewed. HEENT: Head is atraumatic, normocephalic. Oral mucosa moist. NECK: Supple. No lymphadenopathy in the neck. CHEST: Air entry present, equal, bilateral. No added sounds. CARDIOVASCULAR: S1, S2 normal. No murmur, no gallop. ABDOMEN: Soft, nontender. No hepatosplenomegaly. EXTREMITIES: Bilateral 2+ edema. Left thigh in dressing, abscess, and there is discharge from the left thigh. PULMONOLOGIST/INTENSIVIST: Alert, oriented x3. No focal, sensory, motor deficit. SKIN: No breakdown, dry, warm. SPINE: Nontender. LABORATORY DATA: reviewed. ASSESSMENT AND PLAN: 1. Left groin abscess. 2. Crohn's disease. 3. Left renal mass. 4. Gastroesophageal reflux. 5. Arthritis. 6. Osteoporosis. PLAN: On IV antibiotics as per ID, IV meropenem. repeat CT did not show pus collection. Gas bubbles noted in labial region. DM : controlled with current meds. Left renal mass. possible biopsy with DR. Rodriguez. CV : stable. Edita Mcdaniels MD Objective - Vital Signs/Intake and Output Vital Signs (last 24 hours): Temp Pulse Resp BP Pulse Ox 97.4 F L 89 18 127/77 96 01/11/17 07:58 01/11/17 07:58 01/11/17 07:58 01/11/17 07:58 01/11/17 07:58 Intake and Output: 01/11/17 01/12/17 18:59 06:59 Intake Total 780 600 Balance 780 600 - Medications Medications: Current Medications Acetaminophen (Tylenol 325mg Tab) 650 mg PO Q4 PRN PRN Reason: Pain, Mild (1-3) Last Admin: 01/09/17 05:09 Dose: 650 mg Glipizide (Glucotrol) 5 mg PO DAILY [facility] Last Admin: 01/10/17 09:52 Dose: Not Given Hydrochlorothiazide (Microzide) 12.5 mg PO DAILY [facility] Last Admin: 01/11/17 09:49 Dose: 12.5 mg Meropenem 1g/NS 100mL IVPB (Meropenem 1g/Ns 100ml Ivpb) 1 gm in 100 mls @ 100 mls/hr IVPB Q8 [facility] PRN Reason: Protocol Stop: 01/17/17 22:01 Last Admin: 01/11/17 22:37 Dose: 100 mls/hr Insulin Human Lispro (Humalog High) 0 units SC ACHS [facility] PRN Reason: Protocol Last Admin: 01/11/17 22:37 Dose: 1 units Ketorolac Tromethamine (Toradol) 30 mg IVP Q6 PRN PRN Reason: Pain, moderate (4-7) Lactobacillus Acidophilus (Bacid Acidophilus) 1 cap PO DAILY [facility] Last Admin: 01/11/17 09:49 Dose: 1 cap Lisinopril (Zestril) 20 mg PO DAILY [facility] Last Admin: 01/11/17 09:49 Dose: 20 mg Metronidazole (Flagyl) 500 mg PO Q8 [facility] PRN Reason: Protocol Stop: 01/22/17 14:01 Last Admin: 01/11/17 22:37 Dose: 500 mg Prednisone (Prednisone Tab) 20 mg PO BID [facility] Last Admin: 01/11/17 18:36 Dose: 20 mg - Labs Labs: 01/10/17 06:55 01/10/17 06:55
--- NOTE | 2017-01-11 22:54 | CP.PCM.PN ---
Subjective - Date & Time of Evaluation Date of Evaluation: 01/11/17 Time of Evaluation: 15:00 - Subjective Subjective: DATE: 01/11/2017 HISTORY OF PRESENT ILLNESS: Ms. Fritz is a 71-year-old female with history of pyoderma gangrenosum of the right breast. She underwent partial mastectomy . She is admitted with left groin abscess. CAT scan done on 01/07/2017 showed left lower pole mass 3.7 cm on the kidney. This was a new finding that was not seen on previous scans. The last scan was in 2013. She has history of diverticulitis, diverticular disease. Arthritis, diabetes mellitus x2. She is currently on IV antibiotics. Complaining of pain in the left leg. She also has swelling of both lower extremity for past few weeks. repeat CT did not show pus collection. Left renal mass not appreciated on non contrast CT scan susan 01/10/17. REVIEW OF SYSTEMS: As per HPI. Rest of 12-point review of systems reviewed and negative. PAST MEDICAL HISTORY: Hypertension, COPD, hearing aids both ears, diabetes mellitus x2, history of pyoderma gangrenosum of the right breast, and morbid obesity. PAST SURGICAL HISTORY: Partial mastectomy right breast, perforated diverticulitis, arthroscopic knee surgery, and umbilical hernia repair. Left diverticular abscess drainage, colostomy, reversal of colostomy. ALLERGIES: EGG WHITE CAUSES RASH. HOME MEDICATIONS: Tylenol 650 q. 6 hours p.r.n., glipizide 5 mg daily, hydrochlorothiazide 12.5 mg daily, lisinopril 20 mg daily, prednisone 20 mg p.o. b.i.d. FAMILY HISTORY : non contributory. PHYSICAL EXAMINATION GENERAL: Comfortable and in no acute distress. VITAL SIGNS: Temperature 98.7, heart rate 80 per minute, blood pressure 125/69, pulse ox is 98% room air. HEENT: Head is atraumatic, normocephalic. Oral mucosa moist. NECK: Supple. No lymphadenopathy in the neck. CHEST: Air entry present, equal, bilateral. No added sounds. CARDIOVASCULAR: S1, S2 normal. No murmur, no gallop. ABDOMEN: Soft, nontender. No hepatosplenomegaly. EXTREMITIES: Bilateral 2+ edema. Left thigh in dressing, abscess, and there is discharge from the left thigh. WINE BOTTLE INSPECTOR: Alert, oriented x3. No focal, sensory, motor deficit. SKIN: No breakdown, dry, warm. SPINE: Nontender. LABORATORY DATA: White count 9.6, hemoglobin 11, hematocrit 33.4, platelet count 316. Sodium 136, potassium 4.4, BUN 18, creatinine 0.7, glucose 276. Alkaline phosphatase 128. ASSESSMENT AND PLAN: 1. Left groin abscess. 2. Crohn's disease. 3. Left renal mass. 4. Gastroesophageal reflux. 5. Arthritis. 6. Osteoporosis. PLAN: continue IV meropenem. No pus collect on CT scan. [facility] left kidney ordered for tomorrow for left renal mass. Possible biopsy of mass. pain controlled with current meds. difficulty in sitting . Donut requested . GI consult appreciated. Discussed with Dr. Mishra. if she has renal cancer then immunosuppresive treatment will be challenging. Edita Mcdaniels MD Objective - Vital Signs/Intake and Output Vital Signs (last 24 hours): Temp Pulse Resp BP Pulse Ox 97.4 F L 89 18 127/77 96 01/11/17 07:58 01/11/17 07:58 01/11/17 07:58 01/11/17 07:58 01/11/17 07:58 Intake and Output: 01/11/17 01/12/17 18:59 06:59 Intake Total 780 600 Balance 780 600 - Medications Medications: Current Medications Acetaminophen (Tylenol 325mg Tab) 650 mg PO Q4 PRN PRN Reason: Pain, Mild (1-3) Last Admin: 01/09/17 05:09 Dose: 650 mg Glipizide (Glucotrol) 5 mg PO DAILY [facility] Last Admin: 01/10/17 09:52 Dose: Not Given Hydrochlorothiazide (Microzide) 12.5 mg PO DAILY [facility] Last Admin: 01/11/17 09:49 Dose: 12.5 mg Meropenem 1g/NS 100mL IVPB (Meropenem 1g/Ns 100ml Ivpb) 1 gm in 100 mls @ 100 mls/hr IVPB Q8 [facility] PRN Reason: Protocol Stop: 01/17/17 22:01 Last Admin: 01/11/17 22:37 Dose: 100 mls/hr Insulin Human Lispro (Humalog High) 0 units SC ACHS [facility] PRN Reason: Protocol Last Admin: 01/11/17 22:37 Dose: 1 units Ketorolac Tromethamine (Toradol) 30 mg IVP Q6 PRN PRN Reason: Pain, moderate (4-7) Lactobacillus Acidophilus (Bacid Acidophilus) 1 cap PO DAILY [facility] Last Admin: 01/11/17 09:49 Dose: 1 cap Lisinopril (Zestril) 20 mg PO DAILY [facility] Last Admin: 01/11/17 09:49 Dose: 20 mg Metronidazole (Flagyl) 500 mg PO Q8 [facility] PRN Reason: Protocol Stop: 01/22/17 14:01 Last Admin: 01/11/17 22:37 Dose: 500 mg Prednisone (Prednisone Tab) 20 mg PO BID [facility] Last Admin: 01/11/17 18:36 Dose: 20 mg - Labs Labs: 01/10/17 06:55 01/10/17 06:55
[2017-01-12] MEDS: Meropenem 1g/NS 100mL IVPB 1 GM/100 ML PIGGYBACK IVPB SCH ×3 (06:50→22:26)
--- NOTE | 2017-01-12 08:41 | CP.PCM.PN ---
Subjective - Date & Time of Evaluation Date of Evaluation: 01/12/17 Time of Evaluation: 08:38 - Subjective Subjective: General Surgery Progress note for Dr. Burks PT S&E at bedside, tolerating pain well, Dressing changed at bedside. Denies F/C , N/V, Abdominal pain. Admits to pain in area of the drainage. Objective - Vital Signs/Intake and Output Vital Signs (last 24 hours): Temp Pulse Resp BP Pulse Ox 97.6 F 84 20 104/72 98 01/12/17 08:10 01/12/17 08:10 01/12/17 08:10 01/12/17 08:10 01/12/17 08:10 Intake and Output: 01/12/17 01/12/17 06:59 18:59 Intake Total 720 Balance 720 - Medications Medications: Current Medications Acetaminophen (Tylenol 325mg Tab) 650 mg PO Q4 PRN PRN Reason: Pain, Mild (1-3) Last Admin: 01/09/17 05:09 Dose: 650 mg Glipizide (Glucotrol) 5 mg PO DAILY [facility] Last Admin: 01/10/17 09:52 Dose: Not Given Hydrochlorothiazide (Microzide) 12.5 mg PO DAILY [facility] Last Admin: 01/11/17 09:49 Dose: 12.5 mg Meropenem 1g/NS 100mL IVPB (Meropenem 1g/Ns 100ml Ivpb) 1 gm in 100 mls @ 100 mls/hr IVPB Q8 [facility] PRN Reason: Protocol Stop: 01/17/17 22:01 Last Admin: 01/12/17 06:50 Dose: 100 mls/hr Insulin Human Lispro (Humalog High) 0 units SC ACHS [facility] PRN Reason: Protocol Last Admin: 01/11/17 22:37 Dose: 1 units Ketorolac Tromethamine (Toradol) 30 mg IVP Q6 PRN PRN Reason: Pain, moderate (4-7) Lactobacillus Acidophilus (Bacid Acidophilus) 1 cap PO DAILY [facility] Last Admin: 01/11/17 09:49 Dose: 1 cap Lisinopril (Zestril) 20 mg PO DAILY [facility] Last Admin: 01/11/17 09:49 Dose: 20 mg Metronidazole (Flagyl) 500 mg PO Q8 [facility] PRN Reason: Protocol Stop: 01/22/17 14:01 Last Admin: 01/12/17 06:50 Dose: 500 mg Prednisone (Prednisone Tab) 20 mg PO BID [facility] Last Admin: 01/11/17 18:36 Dose: 20 mg - Labs Labs: 01/10/17 06:55 01/10/17 06:55 - Constitutional Appears: No Acute Distress - Head Exam Head Exam: NORMAL INSPECTION, NORMOCEPHALIC - Eye Exam Eye Exam: EOMI, Normal appearance - ENT Exam ENT Exam: Mucous Membranes Moist - Neck Exam Neck Exam: Full ROM, Normal Inspection - Respiratory Exam Respiratory Exam: Clear to Ausculation Bilateral, NORMAL BREATHING PATTERN. absent: Accessory Muscle Use, Rhonchi, Wheezes, Respiratory Distress - Cardiovascular Exam Cardiovascular Exam: REGULAR RHYTHM. absent: Bradycardia, Tachycardia - GI/Abdominal Exam GI & Abdominal Exam: Soft. absent: Bruit, Distended, Firm, Guarding, Rigid, Tenderness, Hyperactive Bowel Sounds, Rebound - Extremities Exam Extremities Exam: Full ROM, Pedal Edema. absent: Joint Swelling Additional comments: 2+ Pitting Edema - Neurological Exam Neurological Exam: Alert, Normal Gait, Oriented x3 - Psychiatric Exam Psychiatric exam: Normal Affect, Normal Mood - Skin Skin Exam: Dry, Normal Color, Warm Assessment and Plan - Assessment and Plan (Free Text) Assessment: 71 F presents with left inferior gluteal abscess with lateral labial tracking Plan: c/w IV meropenem. f/u [facility] left kidney for left renal mass w/ possibl bx of mass. c/w current medical management c/w current pain medications monitor for signs of worsening infection Ave Zelaya DO PGY1
[2017-01-12] MEDS: Insulin Lispro (HUMAlog) HIGH Coverage SC SCH ×4 (08:45→22:27)
[2017-01-12] MEDS: Lactobacillus Acidophilus 500 MU Cap PO SCH (09:23)
[2017-01-12] MEDS ORDERED: Midazolam 2 MG/2 ML VIAL ONE (09:39)
--- NOTE | 2017-01-12 10:08 | US ---
PROCEDURE: Ultrasound of the Kidneys HISTORY: left renal mass COMPARISON: Abdomen pelvis CT examination 01/07/2017 as well as 01/10/2017. TECHNIQUE: Sonogram of the kidneys. FINDINGS: RIGHT KIDNEY: Measures: 10.4 x 5.4 x 6.0 cm. Normal in size and overall contour. Parenchymal echogenicity is increased similar to that of the right kidney. No stone, solid mass lesion or hydronephrosis visualized. No perinephric reaction. LEFT KIDNEY: Measures: 11.9 x 4.0 x 5.2 cm. Normal in size and overall contour. Parenchymal echogenicity is increased similar to that of the right kidney. No stone, solid mass lesion or hydronephrosis visualized. A simple cyst identified at the lower pole left kidney measuring 3.8 x 2.8 x 2 x 3.8 corresponding to the cyst seen in the same location in prior contrast abdomen - pelvis CT 01/07/2017. No perinephric reaction is identified. OTHER FINDINGS: None. IMPRESSION: A simple left renal cyst is identified exophytic off the lower pole left kidney. Further, bilaterally echogenic renal parenchyma suggest intrinsic medical renal disease. No obstructive uropathy bilaterally.
[2017-01-12] MEDS ORDERED: Oxycodone/Acetaminophen 5/325 mg Tab PO PRN (10:26)
[2017-01-12] MEDS ORDERED: Sodium Chloride 0.45% 1,000 ML IV SCH (10:30)
[2017-01-12] MEDS: Insulin Detemir 100 units/ml Vial (Levemir) SC SCH (10:49)
--- NOTE | 2017-01-12 13:12 | CP.PCM.CON ---
<Fiorella Chung - Last Filed: 01/12/17 13:11> History of Present Illness - History of Present Illness History of Present Illness: Seen and examined at bedside, chart reviewed. Request for consult is for GI evaluation. HPI: This is a 71 year old obese female with a history of Pyoderma Gangrenosum of the right breast, s/p partial mastectomy. She is here for left groin abscess w/ labial tracking s/p ID. She had a ct scan on 01/07 that showed a left polar 3.7 cm kidney mass, just came back form renal biopsy this afternoon. She has a history of Crohns , diverticulitis/diverticulosis. The patient is to start on Remicade treatment, surgery request that patient undergo lower GI evaluation prior to starting treatment. Patient denies overt GI bleed, she denies N/V, or abdominal pain. Her most recent colonoscopy was 08/12/16 found to have rectal polyps and biopsy taken to r/o microscopic colitis was negative. she is moving her bowel regularly, no diarrhea, she had several BM yesterday. She had a ct scan on 01/10 reveal sigmoid diverticulosis, rectosigmoid anastomosis, no abnormal loops.There is subcutaneous gas left lateral left labia. PMH: HTN, COPD,TAZLINA, have hearing aids, DM type II, pyderma gangrenosum right breast, morbid obesity, colon polyps, diverticulosis PSH: right partial mastectomy, perforated diverticulitis, knee surgery, umbilical hernia repair, left diverticular abscess drainage, colostomy with reversal. Allergies: egg whites MEDS: reviewed as per MAR Family HX: non contributory at this time Social HX: former smoker, no ETOH,DRUGS ROS: systems reviewed with positive findings, see HPI Past Patient History - Infectious Disease Hx of Infectious Diseases: None - Tetanus Immunizations Tetanus Immunization: Unknown - Past Social History Smoking Status: Former Smoker - CARDIAC Hx Cardiac Disorders: Yes Hx Hypertension: Yes Hx Pacemaker: No - PULMONARY Hx Respiratory Disorders: Yes Hx Asthma: Yes - NEUROLOGICAL Hx Neurological Disorder: No - HEENT Hx HEENT Problems: Yes Hx Deafness: (hearing aids both ears) Other/Comment: glasses - RENAL Hx Chronic Kidney Disease: No - ENDOCRINE/METABOLIC Hx Endocrine Disorders: Yes Hx Diabetes Mellitus Type 2: Yes - HEMATOLOGICAL/ONCOLOGICAL Hx Blood Disorders: No - INTEGUMENTARY Hx Dermatological Problems: Yes (pyoderma gangrenosum) Other/Comment: "small pimple" r breast became larger had it removed by dr quiros was ok for 2 yrs no cancer, then opened up 2nd sx done wound not healing 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, had 3rd sx to remove more of the lesion 11/2015 now being treated at wound center by dr mindi sofia and according to pt wound is healing except for one opening under breast which drains bloody fluid - MUSCULOSKELETAL/RHEUMATOLOGICAL Hx Falls: No - GASTROINTESTINAL Hx Gastrointestinal Disorders: Yes (obese) Hx Crohn's Disease: Yes Hx Diverticulitis: Yes Hx Gall Bladder Disease: No Hx Gastroesophageal Reflux: No Hx Ileostomy: No Hx Liver Failure: No Hx Pancreatitis: No HX Swallowing Problems: No Other/Comment: perforated diverticulum had colostomy and reversal 03/09/2014, colonoscopy 08/12/16 dx polyp, diverticulosis, s/p colon resection, hemorrhoids, r/o ibd - GENITOURINARY/GYNECOLOGICAL Hx Genitourinary Disorders: (fibroids, urinary frequency) Hx Hematuria: No Hx Incontinence: No Hx Sexually Transmitted Disorders: No Hx Urinary Tract Infection: No Other/Comment: swollen labia and draining wound started 2 months ago as a pimple , now draining bloody fluid painful worse with movement - PSYCHIATRIC Hx Substance Use: No - SURGICAL HISTORY Hx Appendectomy: Yes Other/Comment: 3 surgical procedures to excise lesion on r brreast, colostomy and reversal from perforated diverticulum,r knee arthoscopic sx, umbilical hernia repair, d and c x2, cystoscope/urreteral, r brreast bx's of non healing wound 06/09/16, ct scan guided diverticular abcess drainage 11/08/13, cystoscope insertion of b/l ureteral catheters - ANESTHESIA Hx Anesthesia: Yes Hx Anesthesia Reactions: Yes (RESP ARREST AFTER COLOSTOMY; NAUSEA/VOMITING) Hx Malignant Hyperthermia: No Meds Allergies/Adverse Reactions: Allergies Allergy/AdvReac Type Severity Reaction Status Date / Time EGG WHITES AdvReac RASH Uncoded 01/08/17 15:05 - Medications Medications: Current Medications Acetaminophen (Tylenol 325mg Tab) 650 mg PO Q4 PRN PRN Reason: Pain, Mild (1-3) Last Admin: 01/09/17 05:09 Dose: 650 mg Glipizide (Glucotrol) 5 mg PO DAILY [facility] Last Admin: 01/10/17 09:52 Dose: Not Given Hydrochlorothiazide (Microzide) 12.5 mg PO DAILY [facility] Last Admin: 01/12/17 09:23 Dose: 12.5 mg Meropenem 1g/NS 100mL IVPB (Meropenem 1g/Ns 100ml Ivpb) 1 gm in 100 mls @ 100 mls/hr IVPB Q8 [facility] PRN Reason: Protocol Stop: 01/17/17 22:01 Last Admin: 01/12/17 06:50 Dose: 100 mls/hr Sodium Chloride (Sodium Chloride 0.45%) 1,000 mls @ 80 mls/hr IV .[id number] [facility] Stop: 01/12/17 18:00 Insulin Detemir (Levemir) 10 unit SC DAILY [facility] Last Admin: 01/12/17 10:49 Dose: Not Given Insulin Human Lispro (Humalog High) 0 units SC ACHS [facility] PRN Reason: Protocol Last Admin: 01/12/17 12:10 Dose: 7 units Ketorolac Tromethamine (Toradol) 30 mg IVP Q6 PRN PRN Reason: Pain, moderate (4-7) Lactobacillus Acidophilus (Bacid Acidophilus) 1 cap PO DAILY [facility] Last Admin: 01/12/17 09:23 Dose: 1 cap Lisinopril (Zestril) 20 mg PO DAILY [facility] Last Admin: 01/12/17 09:23 Dose: 20 mg Magnesium Citrate (Citrate Of Mag) 300 ml PO ONCE ONE Stop: 01/12/17 14:01 Metronidazole (Flagyl) 500 mg PO Q8 [facility] PRN Reason: Protocol Stop: 01/22/17 14:01 Last Admin: 01/12/17 06:50 Dose: 500 mg Oxycodone/Acetaminophen (Percocet 5/325 Mg Tab) 1 tab PO Q4H PRN PRN Reason: Pain, moderate (4-7) Stop: 01/15/17 10:27 Prednisone (Prednisone Tab) 20 mg PO BID [facility] Last Admin: 01/12/17 09:23 Dose: 20 mg Physical Exam - Constitutional Appears: No Acute Distress - Head Exam Head Exam: NORMOCEPHALIC - Eye Exam Eye Exam: Normal appearance. absent: Scleral icterus - ENT Exam ENT Exam: Mucous Membranes Moist - Neck Exam Neck exam: Positive for: Normal Inspection - Respiratory Exam Respiratory Exam: NORMAL BREATHING PATTERN. absent: Respiratory Distress - Cardiovascular Exam Cardiovascular Exam: +S1, +S2 - GI/Abdominal Exam GI & Abdominal Exam: Normal Bowel Sounds, Soft. absent: Guarding, Rebound, Tenderness Additional comments: OBESE - Rectal Exam Additional comments: left groin abcess, loose dressing present, no blood seen - Extremities Exam Extremities exam: Positive for: pedal edema, pedal pulses present. Negative for : calf tenderness - Neurological Exam Neurological exam: Alert, Oriented x3 - Skin Skin Exam: Dry, Warm Results - Vital Signs Recent Vital Signs: Last Vital Signs Temp 97.7 F 01/12/17 11:05 Pulse 88 01/12/17 11:05 Resp 15 01/12/17 11:05 BP 109/70 01/12/17 11:05 Pulse Ox 99 01/12/17 11:05 - Labs Result Diagrams: 01/10/17 06:55 01/10/17 06:55 Labs: Laboratory Results - last 24 hr 01/11/17 01/11/17 01/12/17 15:11 21:18 01:53 POC Glucose (mg/dL) 254 H 302 H 308 H 01/12/17 01/12/17 07:11 11:38 POC Glucose (mg/dL) 252 H 261 H Assessment & Plan - Assessment and Plan (Free Text) Assessment: ASSESSMENT: Left groin abcess, s/p I&D Crohns Disease Left renal mass, s/p BX Pyoderma Grangrenosum, s/p partial right mastectomy Obesity DM HTN PLAN: change diet to clear liquid magnesium citrate am labs: cbc,cmp,pt/ptt npo after clear liquid lunch on IV antibiotics as per ID continue gi and dvt prophylaxsis Thank you for this consult and for allowing us to participate in your patient care, will make further recommendation based upon clinical course. Seen and discussed with Dr. Mishra. <Bright Mishra V - Last Filed: 01/12/17 23:44> Meds - Medications Medications: Current Medications Acetaminophen (Tylenol 325mg Tab) 650 mg PO Q4 PRN PRN Reason: Pain, Mild (1-3) Last Admin: 01/09/17 05:09 Dose: 650 mg Glipizide (Glucotrol) 5 mg PO DAILY [facility] Last Admin: 01/10/17 09:52 Dose: Not Given Hydrochlorothiazide (Microzide) 12.5 mg PO DAILY [facility] Last Admin: 01/12/17 09:23 Dose: 12.5 mg Meropenem 1g/NS 100mL IVPB (Meropenem 1g/Ns 100ml Ivpb) 1 gm in 100 mls @ 100 mls/hr IVPB Q8 [facility] PRN Reason: Protocol Stop: 01/17/17 22:01 Last Admin: 01/12/17 22:26 Dose: 100 mls/hr Insulin Detemir (Levemir) 10 unit SC DAILY [facility] Last Admin: 01/12/17 10:49 Dose: Not Given Insulin Human Lispro (Humalog High) 0 units SC ACHS [facility] PRN Reason: Protocol Last Admin: 01/12/17 22:27 Dose: Not Given Ketorolac Tromethamine (Toradol) 30 mg IVP Q6 PRN PRN Reason: Pain, moderate (4-7) Stop: 01/14/17 18:15 Lactobacillus Acidophilus (Bacid Acidophilus) 1 cap PO DAILY [facility] Last Admin: 01/12/17 09:23 Dose: 1 cap Lisinopril (Zestril) 20 mg PO DAILY [facility] Last Admin: 01/12/17 09:23 Dose: 20 mg Metronidazole (Flagyl) 500 mg PO Q8 [facility] PRN Reason: Protocol Stop: 01/22/17 14:01 Last Admin: 01/12/17 22:26 Dose: 500 mg Oxycodone/Acetaminophen (Percocet 5/325 Mg Tab) 1 tab PO Q4H PRN PRN Reason: Pain, moderate (4-7) Stop: 01/15/17 10:27 Prednisone (Prednisone Tab) 20 mg PO BID [facility] Last Admin: 01/12/17 17:17 Dose: 20 mg Results - Vital Signs Recent Vital Signs: Last Vital Signs Temp 98.8 F 01/12/17 16:26 Pulse 91 H 01/12/17 16:26 Resp 18 01/12/17 16:26 BP 98/54 L 01/12/17 17:44 Pulse Ox 97 01/12/17 16:26 - Labs Result Diagrams: 01/10/17 06:55 01/10/17 06:55 Labs: Laboratory Results - last 24 hr 01/12/17 01/12/17 01/12/17 01:53 07:11 11:38 POC Glucose (mg/dL) 308 H 252 H 261 H 01/12/17 01/12/17 15:55 21:03 POC Glucose (mg/dL) 268 H 278 H Attending/Attestation - Attestation I have personally seen and examined this patient.: Yes I have fully participated in the care of the patient.: Yes I have reviewed all pertinent clinical information: Yes Notes (Text): this patient was seen and evaluated earlier. Discussed with the Dr. Sofia. Status post a renal biopsy today this patient has a history of inflamatory bowel disease probable Crohn's with the pyoderma gangrenosum of the right breast. Patient is been on prednisone has significant improvement of the breast lesion. Now admitted with a perianal abscess. This was thought to be secondary to the IBD . GI consult was requested to evaluate this. on examination abdomen soft is no tenderness would recommend flexible sigmoidoscopy to further evaluate. Remicade is relatively contraindicated in the setting of abscess
--- NOTE | 2017-01-12 13:53 | CP.PCM.PN ---
Subjective - Date & Time of Evaluation Date of Evaluation: 01/12/17 Time of Evaluation: 08:30 - Subjective Subjective: Comfortable, no fevers overnight, still with pain in the gluteal area, for biopsy of renal cyst/mass today. Objective - Vital Signs/Intake and Output Vital Signs (last 24 hours): Temp Pulse Resp BP Pulse Ox 97.6 F 84 20 110/72 98 01/12/17 08:10 01/12/17 08:10 01/12/17 08:10 01/12/17 09:23 01/12/17 08:10 Intake and Output: 01/12/17 01/12/17 06:59 18:59 Intake Total 720 Balance 720 - Medications Medications: Current Medications Acetaminophen (Tylenol 325mg Tab) 650 mg PO Q4 PRN PRN Reason: Pain, Mild (1-3) Last Admin: 01/09/17 05:09 Dose: 650 mg Glipizide (Glucotrol) 5 mg PO DAILY [facility] Last Admin: 01/10/17 09:52 Dose: Not Given Hydrochlorothiazide (Microzide) 12.5 mg PO DAILY [facility] Last Admin: 01/12/17 09:23 Dose: 12.5 mg Meropenem 1g/NS 100mL IVPB (Meropenem 1g/Ns 100ml Ivpb) 1 gm in 100 mls @ 100 mls/hr IVPB Q8 [facility] PRN Reason: Protocol Stop: 01/17/17 22:01 Last Admin: 01/12/17 06:50 Dose: 100 mls/hr Insulin Human Lispro (Humalog High) 0 units SC ACHS [facility] PRN Reason: Protocol Last Admin: 01/12/17 08:45 Dose: 7 units Ketorolac Tromethamine (Toradol) 30 mg IVP Q6 PRN PRN Reason: Pain, moderate (4-7) Lactobacillus Acidophilus (Bacid Acidophilus) 1 cap PO DAILY [facility] Last Admin: 01/12/17 09:23 Dose: 1 cap Lisinopril (Zestril) 20 mg PO DAILY [facility] Last Admin: 01/12/17 09:23 Dose: 20 mg Metronidazole (Flagyl) 500 mg PO Q8 [facility] PRN Reason: Protocol Stop: 01/22/17 14:01 Last Admin: 01/12/17 06:50 Dose: 500 mg Prednisone (Prednisone Tab) 20 mg PO BID [facility] Last Admin: 01/12/17 09:23 Dose: 20 mg - Labs Labs: 01/10/17 06:55 01/10/17 06:55 - Constitutional Appears: Non-toxic, No Acute Distress - Head Exam Head Exam: NORMAL INSPECTION - ENT Exam ENT Exam: Mucous Membranes Moist - Respiratory Exam Respiratory Exam: Decreased Breath Sounds - Cardiovascular Exam Cardiovascular Exam: +S1, +S2 - GI/Abdominal Exam GI & Abdominal Exam: Soft. absent: Tenderness Assessment and Plan - Assessment and Plan (Free Text) Plan: Assessment Consider gluteal abscess formation associated with sinus tract to the genital area in a patient with Crohn's disease pyoderma gangrenosum of the right breast area Crohn's disease HTN asthma DM arthritis osteoporosis morbid obesity with BMI 43 history of colostomy history of diverticulitis and dvierticular abscess S/P repair of umbilical hernia S/P knee surgery Plan continue Merrem (Day 4) - follow up results of the CT-guided biopsy done today will continue to monitor clinically
[2017-01-12] MEDS ORDERED: Magnesium Citrate Oral SOL (300 ml) PO ONE (14:00)
--- NOTE | 2017-01-12 16:45 | CT ---
PROCEDURE: CT guided left renal mass aspiration and biopsy HISTORY: 4 cm left lower pole renal mass. Evaluate for malignancy. PHYSICIAN(S): Guido Rodriguez MD. TECHNIQUE: The relative risks and indications of the procedure were explained to the patient and consent obtained. The patient was placed prone on the CT scanner and preliminary images through the kidneys obtained. Conscious sedation and monitoring were provided throughout the procedure by a nurse. There is a 4 cm well-circumscribed mass at the inferior aspect of the left kidney.. A left posterior approach was selected and the area prepped and draped in the usual sterile fashion. 1% Xylocaine was used to anesthetize the skin and soft tissues. A 17-gauge guiding needle was advanced into the 4 cm left lower pole renal mass. Its position was confirmed with CT. Initially 15 cc of clear then bloody fluid was aspirated the specimen was sent to cytology. Using coaxial technique, multiple core biopsies were obtained of the residual wall. . The postprocedure images show no evidence of significant hemorrhage. IMPRESSION: 1. CT-guided left lower pole renal aspiration and biopsy as described above.
--- NOTE | 2017-01-13 01:14 | PN ---
DATE: 01/12/2017 SUBJECTIVE: The patient has no complaints of any chest pain or headaches. She is concerned about the left renal mass seen on CAT scan. She is in the hospital. No complaints of any headaches and dizziness. PHYSICAL EXAMINATION VITAL SIGNS: Temperature is 98.8, pulse is 91, blood pressure 98/54, respirations 18, O2 saturation 97%. HEENT: Anicteric sclerae. Moist mucosa. NECK: No adenopathy, thyromegaly, or bruits. CARDIOVASCULAR: S1 and S2 regular. No murmurs, rubs, or gallops. ABDOMEN: Bowel sounds are positive; soft, nontender, and nondistended. No hepatosplenomegaly. EXTREMITIES: Lower extremity, no cyanosis or clubbing. No edema. LABORATORY DATA: A renal ultrasound done shows there is a small left renal cyst that is exophytic off the lower pole of the kidney. ASSESSMENT: 1. Left-sided 4 cm renal mass. 2. Pyoderma gangrenosum. 3. Crohn's disease. 4. Diabetes type 2. 5. Chronic obstructive pulmonary disease. 6. Hypertension. PLAN: The patient is currently comfortable. She is receiving insulin coverage. She is on Levemir for her diabetes, her sugars have been uncontrolled. She is on prednisone for her Crohn's. She is receiving Ketorolac p.r.n. She is on Tylenol. She is on Zestril for hypertension. We will get the blood work tomorrow. I did speak to Dr. Burks regarding the case. She is being followed by GI and infectious disease. Giovany Chiang MD
[2017-01-13] MEDS: Meropenem 1g/NS 100mL IVPB 1 GM/100 ML PIGGYBACK IVPB SCH ×3 (05:57→22:04)
[2017-01-13 07:43] LABS: BASO # 0.03 K/mm3 (0.0-2.0); BASO % 0.3 % (0.0-3.0); EOS % 0.3 % (1.5-5.0); GRAN # 8.91 (1.4-6.5); GRAN % 76.4 % (50.0-68.0); HEMOGLOBIN 12.8 gm/dL (12.0-16.0); LYMPH # 1.9 (1.2-3.4); LYMPH % 15.9 % (22.0-35.0); MEAN CELL VOLUME 87.2 fL (80.0-105.0); MEAN CORPUSCULAR HEMOGLOBIN 29.2 pg (25.0-35.0); MEAN CORPUSCULAR HGB CONC 33.4 g/dl (31.0-37.0); MEAN PLATELET VOLUME 9.4 fl (7.0-11.0); MONO # 0.8 (0.1-0.6); MONO % 7.1 % (1.0-6.0); PLATELET COUNT 405 10^3/uL (120.0-450.0); RBC 4.39 10^6/uL (3.5-6.1); RED CELL DISTRIBUTION WIDTH 15.6 % (11.5-14.5); WHITE BLOOD COUNT 11.7 10^3/ul (4.5-11.0)
[2017-01-13 07:52] LABS: INR 1.06 (0.93-1.08); PROTHROMBIN TIME 11.4 Seconds (9.9-11.8)
[2017-01-13 07:57] LABS: ALB/GLOB RATIO 0.9 (1.1-1.8); ALT/SGPT 92 U/L (7-56); AST/SGOT 36 U/L (15-39); BLOOD UREA NITROGEN 18 mg/dL (7-21); GFR AFRICAN-AMERICAN > 60; GFR NON-AFRICAN AMERICAN > 60
[2017-01-13] MEDS: Insulin Lispro (HUMAlog) HIGH Coverage SC SCH ×4 (08:50→22:04)
--- NOTE | 2017-01-13 09:23 | PN ---
DATE: 01/13/2017 SUBJECTIVE: The patient has no complaints of any chest pain or shortness of breath. She tolerated the procedure yesterday for her biopsy. PHYSICAL EXAMINATION VITAL SIGNS: Temperature is , pulse is 91, blood pressure 90/54, respirations 18. HEENT: Patient has anicteric sclerae. Moist mucosa. No oral lesion. NECK: No JVD, adenopathy, thyromegaly, or bruits. CARDIOVASCULAR: S1 and S2 is regular. No murmurs, rubs, or gallops. ABDOMEN: Bowel sounds are positive; soft, nontender, and nondistended. No hepatosplenomegaly. EXTREMITIES: Lower extremity, no cyanosis, clubbing or edema. NEUROLOGICAL: Alert, awake, oriented. LABORATORY DATA: White count of 11.7, creatinine 0.6. ASSESSMENT: 1. Left-sided 4 cm renal mass, status post biopsy. 2. Pyoderma gangrenosum, acute. 3. Crohn's disease. 4. Diabetes type 2. 5. Chronic obstructive pulmonary disease. 6. Hypertension. PLAN: The patient is going for an endoscopy today. The patient is going to be on Flagyl. She is going to continue with meropenem for antibiotics. The patient is going to continue with hydrochlorothiazide for hypertension. The patient is on prednisone daily. She is on lisinopril for hypertension. She is going to be n.p.o. after lunch for her endoscopy. Giovany Chiang MD
[2017-01-13] MEDS: Insulin Detemir 100 units/ml Vial (Levemir) SC SCH (11:22)
[2017-01-13] MEDS: Lactobacillus Acidophilus 500 MU Cap PO SCH (11:22)
[2017-01-13] MEDS ORDERED: Propofol 10 mg/ml Inj (20 ML) ONE ×2 (14:08→14:34)
[2017-01-13] MEDS ORDERED: Sodium Chloride 0.9% 1,000 ML IV SCH (15:30)
[2017-01-13 16:50] VITALS: RESP 20
[2017-01-13] MEDS: Silver Sulfadiazine 1% Cream (20 gm) TOP SCH (22:05)
--- NOTE | 2017-01-13 23:31 | CP.PCM.PN ---
Subjective - Date & Time of Evaluation Date of Evaluation: 01/13/17 Time of Evaluation: 18:00 - Subjective Subjective: Underwent EGD today, showed large deudinal ulcer. She has been on steroids for pyoderma ganreosum of right breast. She has superficial wound on breast . left renal mass was cystic in nature. Needle aspiration and biopsy of cyst wall done. Pathology pending. Left groin abscess improving. Objective - Vital Signs/Intake and Output Vital Signs (last 24 hours): Temp Pulse Resp BP Pulse Ox 97.4 F L 74 20 113/59 L 98 01/13/17 16:00 01/13/17 16:00 01/13/17 16:00 01/13/17 16:00 01/13/17 16:00 Intake and Output: 01/13/17 01/14/17 18:59 06:59 Intake Total 660 600 Balance 660 600 - Medications Medications: Current Medications Acetaminophen (Tylenol 325mg Tab) 650 mg PO Q4 PRN PRN Reason: Pain, Mild (1-3) Last Admin: 01/09/17 05:09 Dose: 650 mg Glipizide (Glucotrol) 5 mg PO DAILY [facility] Last Admin: 01/10/17 09:52 Dose: Not Given Hydrochlorothiazide (Microzide) 12.5 mg PO DAILY [facility] Last Admin: 01/13/17 11:24 Dose: Not Given Meropenem 1g/NS 100mL IVPB (Meropenem 1g/Ns 100ml Ivpb) 1 gm in 100 mls @ 100 mls/hr IVPB Q8 [facility] PRN Reason: Protocol Stop: 01/17/17 22:01 Last Admin: 01/13/17 22:04 Dose: 100 mls/hr Sodium Chloride (Sodium Chloride 0.9%) 1,000 mls @ 100 mls/hr IV .Q10H [facility] Insulin Detemir (Levemir) 10 unit SC DAILY [facility] Last Admin: 01/13/17 11:22 Dose: Not Given Insulin Human Lispro (Humalog High) 0 units SC ACHS [facility] PRN Reason: Protocol Last Admin: 01/13/17 22:04 Dose: Not Given Ketorolac Tromethamine (Toradol) 30 mg IVP Q6 PRN PRN Reason: Pain, moderate (4-7) Stop: 01/14/17 18:15 Lactobacillus Acidophilus (Bacid Acidophilus) 1 cap PO DAILY [facility] Last Admin: 01/13/17 11:22 Dose: Not Given Lisinopril (Zestril) 20 mg PO DAILY [facility] Last Admin: 01/13/17 11:25 Dose: Not Given Metronidazole (Flagyl) 500 mg PO Q8 [facility] PRN Reason: Protocol Stop: 01/22/17 14:01 Last Admin: 01/13/17 22:04 Dose: 500 mg Oxycodone/Acetaminophen (Percocet 5/325 Mg Tab) 1 tab PO Q4H PRN PRN Reason: Pain, moderate (4-7) Stop: 01/15/17 10:27 Prednisone (Prednisone Tab) 20 mg PO BID [facility] Last Admin: 01/13/17 18:04 Dose: Not Given Silver Sulfadiazine (Silvadene 1% 20 Gm) 0 ea TOP BID [facility] Last Admin: 01/13/17 22:05 Dose: 1 applic - Labs Labs: 01/13/17 07:30 01/13/17 07:30 PT 11.4 Seconds (9.9-11.8) 01/13/17 07:30 INR 1.06 (0.93-1.08) 01/13/17 07:30 APTT 22.0 Seconds (23.7-30.8) L 01/13/17 07:30 - Constitutional Appears: Well, Non-toxic - Head Exam Head Exam: ATRAUMATIC, NORMAL INSPECTION, NORMOCEPHALIC - Eye Exam Eye Exam: Normal appearance Pupil Exam: NORMAL ACCOMODATION - ENT Exam ENT Exam: Mucous Membranes Moist, Normal Exam - Neck Exam Neck Exam: Normal Inspection - Cardiovascular Exam Cardiovascular Exam: REGULAR RHYTHM, +S1, +S2 - GI/Abdominal Exam GI & Abdominal Exam: Soft, Normal Bowel Sounds - Extremities Exam Extremities Exam: Normal Inspection - Back Exam Back Exam: NORMAL INSPECTION - Neurological Exam Neurological Exam: Alert, Normal Gait, Oriented x3 - Skin Skin Exam: Normal Color, Warm Assessment and Plan - Assessment and Plan (Free Text) Plan: 1. Left renal cystic mass : aspirated, wall biopsied. Path pending. 2. large deudenal ulcer, GI following. 3. Groin abscess : on IV antibiotics. 4. Chron's disease : work up in progress. Thank you Dr. Chiang for allowing us to participate in her care.
--- NOTE | 2017-01-14 00:36 | CON ---
SUBJECTIVE: The patient is doing well. The abscess is seen in the perineum connect. There is very little drainage, do not seem to be actively infected. I believe this is related to Crohn's and not directly related to invasive infection. Discussed with Dr. Guzman, who believes the same. My feeling is that after we do TB testing, she would be a candidate for the Remicade, anti-tumor necrosis factor infusions. The breast itself is doing very well. Charles Burks MD
[2017-01-14] MEDS: Meropenem 1g/NS 100mL IVPB 1 GM/100 ML PIGGYBACK IVPB SCH ×2 (06:21→13:39)
[2017-01-14] MEDS: Insulin Lispro (HUMAlog) HIGH Coverage SC SCH ×3 (08:26→16:57)
--- NOTE | 2017-01-14 08:36 | PN ---
DATE: 01/13/2017 SUBJECTIVE: *------*, bed 2. No fever and no chills. She is doing well. She is tolerating antibiotics. PHYSICAL EXAMINATION: VITAL SIGNS: Temperature is 98, blood pressure is 98/54, respiratory rate of 18, and heart rate of 91. HEENT: Unremarkable. NECK: Supple. LUNGS: Decreased breath sounds. HEART: Normal S1 and S2. ABDOMEN: Soft and nontender. LABORATORY DATA: Reveals a white count of 11,700; hemoglobin of 12; and platelets of 405. Chemistries are noted and Immunology is noted. Dr. Chiang's note from this morning is reviewed. The patient is tolerating medications well. ASSESSMENT AND PLAN: This is a 71-year-old female with obesity with gluteal abscess formation associated with sinus tract versus fistula probably secondary to Crohn's disease and a patient with an unusual presentation of pyoderma gangrenosum of the right breast and presenting now with Crohn's, hypertension, asthma, diabetes, *------*, and osteoporosis with a fistula formation, history of colostomy, history of diverticulitis, and diverticular abscess. Currently on meropenem day 5. Was found to have a renal mass, status post renal mass biopsy. The patient is on p.o. Flagyl for the fistula and meropenem and was doing better. We will follow closely with you. Shan Guzman MD
[2017-01-14 09:41] VITALS: TEMP 97.8; O2SAT 99
--- NOTE | 2017-01-14 10:19 | CP.PCM.PN ---
Subjective - Date & Time of Evaluation Date of Evaluation: 01/14/17 Time of Evaluation: 06:30 - Subjective Subjective: General Surgery Progress Note for Dr. Burks PT S&E at bedside. FAHAD. Patient states she was given a donut, which has relieved some of her discomfort in her sacrum. Patient denies F/C, N/V, abdominal pain. Patient is tolerating pain well. admits to some blood at the site of abscess. Objective - Vital Signs/Intake and Output Vital Signs (last 24 hours): Temp Pulse Resp BP Pulse Ox 97.8 F 80 20 122/72 99 01/14/17 07:30 01/14/17 07:30 01/14/17 07:30 01/14/17 07:30 01/14/17 07:30 Intake and Output: 01/14/17 01/14/17 06:59 18:59 Intake Total 840 Balance 840 - Medications Medications: Current Medications Acetaminophen (Tylenol 325mg Tab) 650 mg PO Q4 PRN PRN Reason: Pain, Mild (1-3) Last Admin: 01/09/17 05:09 Dose: 650 mg Glipizide (Glucotrol) 5 mg PO DAILY [facility] Last Admin: 01/10/17 09:52 Dose: Not Given Hydrochlorothiazide (Microzide) 12.5 mg PO DAILY [facility] Last Admin: 01/13/17 11:24 Dose: Not Given Meropenem 1g/NS 100mL IVPB (Meropenem 1g/Ns 100ml Ivpb) 1 gm in 100 mls @ 100 mls/hr IVPB Q8 ESTHER PRN Reason: Protocol Stop: 01/17/17 22:01 Last Admin: 01/14/17 06:21 Dose: 100 mls/hr Sodium Chloride (Sodium Chloride 0.9%) 1,000 mls @ 100 mls/hr IV .Q10H ESTHER Insulin Detemir (Levemir) 10 unit SC DAILY [facility] Last Admin: 01/13/17 11:22 Dose: Not Given Insulin Human Lispro (Humalog High) 0 units SC ACHS ESTHER PRN Reason: Protocol Last Admin: 01/14/17 08:26 Dose: 4 units Ketorolac Tromethamine (Toradol) 30 mg IVP Q6 PRN PRN Reason: Pain, moderate (4-7) Stop: 01/14/17 18:15 Lactobacillus Acidophilus (Bacid Acidophilus) 1 cap PO DAILY [facility] Last Admin: 01/13/17 11:22 Dose: Not Given Lisinopril (Zestril) 20 mg PO DAILY [facility] Last Admin: 01/13/17 11:25 Dose: Not Given Metronidazole (Flagyl) 500 mg PO Q8 [facility] PRN Reason: Protocol Stop: 01/22/17 14:01 Last Admin: 01/14/17 06:21 Dose: 500 mg Oxycodone/Acetaminophen (Percocet 5/325 Mg Tab) 1 tab PO Q4H PRN PRN Reason: Pain, moderate (4-7) Stop: 01/15/17 10:27 Pantoprazole Sodium (Protonix Inj) 40 mg IVP Q12 [facility] Prednisone (Prednisone Tab) 20 mg PO BID [facility] Last Admin: 01/13/17 18:04 Dose: Not Given Silver Sulfadiazine (Silvadene 1% 20 Gm) 0 ea TOP BID [facility] Last Admin: 01/13/17 22:05 Dose: 1 applic Sucralfate (Carafate Oral Susp) 1 gm PO 0600,1600 [facility] - Labs Labs: 01/13/17 07:30 01/13/17 07:30 PT 11.4 Seconds (9.9-11.8) 01/13/17 07:30 INR 1.06 (0.93-1.08) 01/13/17 07:30 APTT 22.0 Seconds (23.7-30.8) L 01/13/17 07:30 - Constitutional Appears: No Acute Distress - Head Exam Head Exam: NORMAL INSPECTION, NORMOCEPHALIC - Eye Exam Eye Exam: EOMI, Normal appearance - Neck Exam Neck Exam: Full ROM, Normal Inspection - Respiratory Exam Respiratory Exam: NORMAL BREATHING PATTERN. absent: Accessory Muscle Use, Wheezes, Respiratory Distress, Stridor - GI/Abdominal Exam GI & Abdominal Exam: Soft. 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 abscess drainage at left inferior gluteal region and labial region. Assessment and Plan - Assessment and Plan (Free Text) Assessment: 71 F with inferior gluteal abscess and labial abscess with drainage Plan: hold prednisone per DR. Mishra due to duodenal ulcers found on endoscopy. c/w current abx c/w current pain management c/w current medical management Ave Zelaya DO PGY1
[2017-01-14] MEDS: Lactobacillus Acidophilus 500 MU Cap PO SCH (10:39)
[2017-01-14] MEDS: Insulin Detemir 100 units/ml Vial (Levemir) SC SCH ×2 (10:39→10:53)
[2017-01-14] MEDS: Silver Sulfadiazine 1% Cream (20 gm) TOP SCH ×2 (10:40→16:59)
[2017-01-14 10:53] VITALS: BP 105/63; PULSE 96
--- NOTE | 2017-01-14 12:49 | CP.PCM.PN ---
Subjective - Date & Time of Evaluation Date of Evaluation: 01/14/17 Time of Evaluation: 09:50 - Subjective Subjective: S&E at bedside, s/p egd/flex yesterday, found to have PUD on EGD, flexsig, no acute findings, no acute overnight events reported, eating breakfast. No new complaints. Objective - Vital Signs/Intake and Output Vital Signs (last 24 hours): Temp Pulse Resp BP Pulse Ox 97.8 F 96 H 20 105/63 99 01/14/17 07:30 01/14/17 10:53 01/14/17 07:30 01/14/17 10:53 01/14/17 07:30 Intake and Output: 01/14/17 01/14/17 06:59 18:59 Intake Total 840 Balance 840 - Medications Medications: Current Medications Acetaminophen (Tylenol 325mg Tab) 650 mg PO Q4 PRN PRN Reason: Pain, Mild (1-3) Last Admin: 01/09/17 05:09 Dose: 650 mg Glipizide (Glucotrol) 5 mg PO DAILY [facility] Last Admin: 01/10/17 09:52 Dose: Not Given Hydrochlorothiazide (Microzide) 12.5 mg PO DAILY COUNT [facility]CLUD[facility] Last Admin: 01/14/17 10:39 Dose: 12.5 mg Meropenem 1g/NS 100mL IVPB (Meropenem 1g/Ns 100ml Ivpb) 1 gm in 100 mls @ 100 mls/hr IVPB Q8 ESTHER PRN Reason: Protocol Stop: 01/17/17 22:01 Last Admin: 01/14/17 06:21 Dose: 100 mls/hr Sodium Chloride (Sodium Chloride 0.9%) 1,000 mls @ 100 mls/hr IV .Q10H COUNT [facility]CLUD[facility] Insulin Detemir (Levemir) 10 unit SC DAILY COUNT [facility] Last Admin: 01/14/17 10:53 Dose: Not Given Insulin Human Lispro (Humalog High) 0 units SC ACHS ESTHER PRN Reason: Protocol Last Admin: 01/14/17 12:12 Dose: 7 units Ketorolac Tromethamine (Toradol) 30 mg IVP Q6 PRN PRN Reason: Pain, moderate (4-7) Stop: 01/14/17 18:15 Lactobacillus Acidophilus (Bacid Acidophilus) 1 cap PO DAILY COUNT [facility] Last Admin: 01/14/17 10:39 Dose: 1 cap Lisinopril (Zestril) 20 mg PO DAILY COUNT [facility] Last Admin: 01/14/17 10:53 Dose: Not Given Metronidazole (Flagyl) 500 mg PO Q8 COUNT [facility] PRN Reason: Protocol Stop: 01/22/17 14:01 Last Admin: 01/14/17 06:21 Dose: 500 mg Oxycodone/Acetaminophen (Percocet 5/325 Mg Tab) 1 tab PO Q4H PRN PRN Reason: Pain, moderate (4-7) Stop: 01/15/17 10:27 Pantoprazole Sodium (Protonix Inj) 40 mg IVP Q12 COUNT [facility] Last Admin: 01/14/17 10:53 Dose: Not Given Prednisone (Prednisone Tab) 20 mg PO BID COUNT [facility] Last Admin: 01/13/17 18:04 Dose: Not Given Silver Sulfadiazine (Silvadene 1% 20 Gm) 0 ea TOP BID COUNT [facility] Last Admin: 01/14/17 10:40 Dose: 1 applic Sucralfate (Carafate Oral Susp) 1 gm PO 0600,1600 COUNT [facility] - Labs Labs: 01/13/17 07:30 01/13/17 07:30 PT 11.4 Seconds (9.9-11.8) 01/13/17 07:30 INR 1.06 (0.93-1.08) 01/13/17 07:30 APTT 22.0 Seconds (23.7-30.8) L 01/13/17 07:30 - Constitutional Appears: No Acute Distress - Head Exam Head Exam: NORMOCEPHALIC - Eye Exam Eye Exam: Normal appearance. absent: Scleral icterus - ENT Exam ENT Exam: Mucous Membranes Moist - Neck Exam Neck Exam: Normal Inspection - Respiratory Exam Respiratory Exam: NORMAL BREATHING PATTERN. absent: Respiratory Distress - Cardiovascular Exam Cardiovascular Exam: +S1, +S2 - GI/Abdominal Exam GI & Abdominal Exam: Soft, Normal Bowel Sounds. absent: Guarding, Tenderness, Rebound - Extremities Exam Extremities Exam: absent: Calf Tenderness, Pedal Edema - Neurological Exam Neurological Exam: Alert, Awake, Oriented x3 - Skin Skin Exam: Dry, Warm Assessment and Plan - Assessment and Plan (Free Text) Assessment: ASSESSMENT: PUD Left groin abcess, s/p I&D Crohns Disease Left renal mass, s/p BX Pyoderma Grangrenosum, s/p partial right mastectomy Obesity DM HTN PLAN: continue diet as tolerated protonix 40 mg IV BID carafate liquid BID avoid NSAIDs hold prednisone repeat egd 6-8 weeks FU ulcers monitor H/H discussed above w/patient FU outpatient office Seen and discussed with Dr. Mishra.
--- NOTE | 2017-01-14 15:50 | PN ---
DATE: Jaclyn Fritz seen. The patient is going to be discharged. The steroid is going to be stopped as per Dr. Mishra, this will be stopped without a taper. The patient will be seen in the office in several days. He will continue the antibiotics for now. Personally, I believe the patient needs to be started on Remicade or something similar as per GI. This will be done as an infusion. The patient will be seen in the wound care center in next week. Charles Burks MD
[2017-01-14] MEDS ORDERED: Sucralfate 1 gm/10 ml Oral Susp UD PO SCH (16:00)
--- NOTE | 2017-01-15 02:24 | PN ---
DATE: 01/14/2017 SUBJECTIVE: The patient is seen in bed, in no acute distress, nontoxic. PHYSICAL EXAMINATION: VITAL SIGNS: Temperature is 97, blood pressure is 105/60, respiratory rate of 16. HEENT: Unremarkable. NECK: Supple. LUNGS: Decreased breath sounds. HEART: Normal S1 and S2. : As noted. LABORATORY DATA: Reveals white count from yesterday is 11,700. Chemistries are reviewed. ASSESSMENT AND PLAN: This is a 71-year-old with obesity and gluteal abscess formation with sinus tract versus fistula in a patient with Crohn's disease and pyoderma gangrenosum of right breast and with duodenal ulcer on endoscopy. The patient to be follow up as an outpatient with close follow up. Shan Guzman MD
--- NOTE | 2017-01-15 04:17 | DS ---
HISTORY OF PRESENT ILLNESS: The patient has no complaints of any chest pain or shortness of breath. No headaches or dizziness. She was initially admitted to the hospital because she developed Pyoderma gangrenosum because of the Crohn's. The patient has been followed by Dr. Burks. The patient will not need any surgical intervention. I did speak to Dr. Burks regarding the case. The patient has multiple ulcers after endoscopy was done. She had a renal mass and had biopsy done for that renal mass. She is going to be followed by Dr. Mcdaniels as an outpatient. We will talk DrMelany ------ about the patient's antibiotics. PHYSICAL EXAMINATION: VITAL SIGNS: Temperature is 97.8, pulse of 80, blood pressure 122/72, respirations 20 and O2 saturation is 99%. GENERAL: The patient is comfortable, in no acute distress. HEENT: Anicteric sclerae. Moist mucosa. NECK: No JVD, adenopathy, thyromegaly or bruits. CARDIOVASCULAR: S1 and S2 are regular. No murmurs, rubs or gallops. LUNGS: Good bilateral air entry. No wheezes, rales or rhonchi. ABDOMEN: Bowel sounds are positive, soft, nontender and nondistended. EXTREMITIES: Lower extremities; no cyanosis, clubbing or edema. LABORATORY DATA: White count 11.7. The patient's glucose is in the 240-294 range. ASSESSMENT: 1. Left renal mass, 4 cm, status post biopsy. 2. Pyoderma gangrenosum. 3. Crohn's. 4. Diabetes type 2. 5. Chronic obstructive pulmonary disease. 6. Hypertension. 7. Obesity with body mass index of 38. 8. Peptic ulcer disease. 9. Esophagitis. PLAN: The patient is currently on Flagyl. She is going to continue Levemir for diabetes and meropenem for antibiotics. The patient is receiving Protonix daily. She is going to be on lisinopril for her hypertension. We will see if the patient could be discharged home today. She has multiple duodenal ulcers. CONDITION: Stable. ACTIVITIES: Increase as tolerated. Giovany Chiang MD
== END 2017-01-14 18:38 | disposition home or self-care (01) | DRG 603 ==
LOC: ED 14:59 → ERH 15:25 → 5RNO 19:46
PROVIDERS: ADMIT Internal Medicine Nephrology; ATTEND Internal Medicine Nephrology
PROC: 0TB13ZX Excision of Left Kidney, Percutaneous Approach, Diagnostic (ICD-10-PCS; principal; 2017-01-12 09:30)
PROC: 0DJD8ZZ Inspection of Lower Intestinal Tract, Via Natural or Artificial Opening Endoscopic (ICD-10-PCS; 2017-01-13)
PROC: 0DB68ZX Excision of Stomach, Via Natural or Artificial Opening Endoscopic, Diagnostic (ICD-10-PCS; 2017-01-13)
PROC: 0DB98ZX Excision of Duodenum, Via Natural or Artificial Opening Endoscopic, Diagnostic (ICD-10-PCS; 2017-01-13 13:30)
DX: L02.31 Cutaneous abscess of buttock (principal); Z68.41 Body mass index [BMI] 40.0-44.9, adult; K50.90 Crohn's disease, unspecified, without complications; J44.9 Chronic obstructive pulmonary disease, unspecified; K26.9 Duodenal ulcer, unspecified as acute or chronic, without hemorrhage or perforation; E66.01 Morbid (severe) obesity due to excess calories; L02.214 Cutaneous abscess of groin; L88 Pyoderma gangrenosum; N76.4 Abscess of vulva; N28.1 Cyst of kidney, acquired; E11.9 Type 2 diabetes mellitus without complications; I10 Essential (primary) hypertension; K21.0 Gastro-esophageal reflux disease with esophagitis; M81.0 Age-related osteoporosis without current pathological fracture; K27.9 Peptic ulcer, site unspecified, unspecified as acute or chronic, without hemorrhage or perforation; M19.90 Unspecified osteoarthritis, unspecified site; K64.8 Other hemorrhoids; K29.50 Unspecified chronic gastritis without bleeding; Z86.010 Personal history of colon polyps; Z87.891 Personal history of nicotine dependence

== ENCOUNTER 2017-01-25 19:00 | Inpatient (IN) | payer MEDICARE ==
[2017-01-25] MEDS ORDERED: Sodium Chloride 0.9% 1,000 ML IV STA (19:48)
--- NOTE | 2017-01-25 19:53 | ED PDOC ---
Arrival/HPI <Dwain Buenrostro - Last Filed: 01/26/17 00:03> - History of Present Illness Time/Duration: 24 hours Symptom Onset: Sudden Symptom Course: Unchanged Quality: Aching Context: Home <Nati Macias - Last Filed: 01/26/17 01:29> - General Chief Complaint: Trauma Time Seen by Provider: 01/25/17 19:24 - History of Present Illness Narrative History of Present Illness (Text): 01/25/17 19:49 71 year old female with past medical history of Hypertension, COPD, Diabetes, Crohn's dz (recently diagnosed), OA presents after experiencing a fall yesterday morning. Patient states that she was getting out of the bath tub at home but was unable to carry her leg over the tub. She landed on her left side. She then crawled to her bedroom and layed there for 24 hours until her daughter found her this morning. Patient states that she was unable to move much for 24 hours. Patient's daughter cleaned her as she had soiled herself and then brought her into the hospital. Patient was able to stand up with the help of her daughter. Patient is complaining of left shoulder pain and left knee pain. Patient denies having any LOC. She denies having any history of falls and is ambulatory at home otherwise. (Nati Macias) Past Medical History - Provider Review Nursing Documentation Reviewed: Yes - Travel History Have you recently traveled outside [place] w/in the past 3 mons?: No - Infectious Disease Hx of Infectious Diseases: None - Tetanus Immunization Tetanus Immunization: Unknown - Cardiac Hx Cardiac Disorders: Yes Hx Hypertension: Yes Hx Pacemaker: No - Pulmonary Hx Respiratory Disorders: Yes Hx Asthma: Yes - Neurological Hx Neurological Disorder: No - HEENT Hx HEENT Disorder: Yes Hx Deafness: (hearing aids both ears) Other/Comment: glasses - Renal Hx Renal Disorder: No - Endocrine/Metabolic Hx Endocrine Disorders: Yes Hx Diabetes Mellitus Type 2: Yes - Hematological/Oncological Hx Blood Transfusions: No Hx Blood Transfusion Reaction: No - Integumentary Hx Dermatological Disorder: Yes (pyoderma gangrenosum) Other/Comment: "small pimple" r breast became larger had it removed by dr quiros was ok for 2 yrs no cancer, then opened up 2nd sx done wound not healing was dx with dermagangrenous fed by crohnkashif, had 3rd sx to remove more of the lesion 11/2015 now being treated at wound center by dr mindi sofia and according to pt wound is healing except for one opening under breast which drains bloody fluid - Musculoskeletal/Rheumatological Hx Falls: No - Gastrointestinal Hx Gastrointestinal Disorders: Yes (obese) Hx Crohn's Disease: Yes Hx Diverticulitis: Yes Hx Gall Bladder Disease: No Hx Gastroesophageal Reflux: No Hx Ileostomy: No Hx Liver Failure: No Hx Pancreatitis: No HX Swallowing Problems: No Other/Comment: perforated diverticulum had colostomy and reversal 03/09/2014, colonoscopy 08/12/16 dx polyp, diverticulosis, s/p colon resection, hemorrhoids, r/o ibd - Genitourinary/Gynecological Hx Genitourinary Disorders: (fibroids, urinary frequency) Hx Hematuria: No Hx Incontinence: No Hx Sexually Transmitted Diseases: No Hx Urinary Tract Infection: No Other/Comment: swollen labia and draining wound started 2 months ago as a pimple , now draining bloody fluid painful worse with movement - Psychiatric Hx Psychophysiologic Disorder: No Hx Emotional Abuse: No Hx Physical Abuse: No Hx Substance Use: No - Surgical History Hx Appendectomy: Yes Other/Comment: 3 surgical procedures to excise lesion on r brreast, colostomy and reversal from perforated diverticulum,r knee arthoscopic sx, umbilical hernia repair, d and c x2, cystoscope/urreteral, r brreast bx's of non healing wound 06/09/16, ct scan guided diverticular abcess drainage 11/08/13, cystoscope insertion of b/l ureteral catheters - Anesthesia Hx Anesthesia Reactions: Yes (RESP ARREST AFTER COLOSTOMY; NAUSEA/VOMITING) Hx Malignant Hyperthermia: No - Suicidal Assessment Feels Threatened In Home Enviroment: No <Nati Macias - Last Filed: 01/26/17 01:29> Family/Social History - Physician Review Nursing Documentation Reviewed: Yes Family/Social History: Unknown Family HX Smoking Status: Former Smoker Hx Alcohol Use: No Hx Substance Use: No Hx Substance Use Treatment: No <Nati Macias - Last Filed: 01/26/17 01:29> Allergies/Home Meds <Dwain Buenrostro - Last Filed: 01/26/17 00:03> <Nati Macias - Last Filed: 01/26/17 01:29> Allergies/Adverse Reactions: Allergies EGG WHITES Adverse Reaction (Uncoded 01/08/17 15:05) RASH Home Medications: Home Meds Medication Instructions Recorded Confirmed GlipiZIDE [Glucotrol] 5 mg PO DAILY 11/07/13 01/25/17 metFORMIN [glucOPHAGE] 500 mg PO BID 11/07/13 01/25/17 Lisinopril/Hydrochlorothiazide 1 tab PO QAM 05/23/15 01/25/17 [Lisinopril-Hctz 20-12.5 mg Tab] Cholecalciferol (Vitamin D3) 50,000 unit PO SAT 11/20/15 01/25/17 [Vitamin D3] oxyCODONE/Acetaminophen [Percocet 1 tab PO Q12H PRN 08/06/16 01/25/17 5/325 mg Tab] Review of Systems - Review of Systems Constitutional: Normal. absent: Fatigue, Fevers Eyes: Normal. absent: Vision Changes, Photophobia ENT: Normal. absent: Hearing Changes, Sore Throat, Rhinorrhea Respiratory: Normal. absent: SOB, Cough, Wheezing Cardiovascular: Normal. absent: Chest Pain, Edema Gastrointestinal: Normal. absent: Abdominal Pain, Constipation, Diarrhea, Nausea, Vomiting Genitourinary Female: Normal. absent: Dysuria, Frequency, Hematuria Musculoskeletal: Arthralgias (left shoulder, left knee ), Back Pain. absent: Neck Pain Skin: Other (abrasions noted on left wrist and chest ) Neurological: Normal. absent: Headache, Dizziness, Focal Weakness, Speech Changes, Facial Droop Endocrine: Normal. absent: Diaphoresis, Polyuria Hemo/Lymphatic: Normal. absent: Adenopathy Psychiatric: Normal. absent: Anxiety, Depression <Karim,Nati - Last Filed: 01/26/17 01:29> Physical Exam Temperature: Afebrile Blood Pressure: Normal Pulse: Regular Respiratory Rate: Normal Appearance: Positive for: Non-Toxic, Uncomfortable Pain Distress: Moderate Mental Status: Positive for: Alert and Oriented X 3 Finger Stick Blood Glucose: 107 - Systems Exam Head: Present: Atraumatic, Normocephalic Pupils: Present: PERRL Extroacular Muscles: Present: EOMI Conjunctiva: Present: Normal Mouth: Present: Dry Neck: Present: Normal Range of Motion Respiratory/Chest: Present: Clear to Auscultation, Good Air Exchange. No: Respiratory Distress, Accessory Muscle Use, Wheezes, Rales, Rhonchi Cardiovascular: Present: Regular Rate and Rhythm, Normal S1, S2. No: Murmurs, Rub, Gallop, Muffled Abdomen: Present: Normal Bowel Sounds. No: Tenderness, Distention, Peritoneal Signs, Rebound, Guarding Upper Extremity: Present: NORMAL PULSES, Tenderness, Erythema, Neurovascularly Intact, Deformity (left shoulder deformity. tender to touch ). No: Normal ROM Lower Extremity: Present: Edema, CALF TENDERNESS (left LE ), NORMAL PULSES, Tenderness (right knee tenderness ). No: Normal ROM Neurological: Present: GCS=15, CN II-XII Intact, Speech Normal, Motor Func Grossly Intact, Normal Sensory Function Skin: Present: Warm, Dry, Normal Color, Abrasion (on chest and left UE). No: Rashes Psychiatric: Present: Alert, Oriented x 3, Normal Insight, Normal Concentration <Nati Macias - Last Filed: 01/26/17 01:29> Vital Signs Temp Pulse Resp BP Pulse Ox 01/25/17 23:43 97 H 18 125/73 97 01/25/17 22:46 95 H 16 135/70 99 01/25/17 21:00 89 16 127/69 97 01/25/17 20:15 93 H 16 124/67 97 01/25/17 19:07 99.2 F 99 H 16 135/68 98 Medical Decision Making - Lab Interpretations I have reviewed the lab results: Yes - EKG Interpretation Interpreted by ED Physician: Yes Type: 12 lead EKG <Dwain Buenrostro - Last Filed: 01/26/17 00:03> - Lab Interpretations I have reviewed the lab results: Yes - EKG Interpretation Interpreted by ED Physician: Yes Type: 12 lead EKG <Nati Macias - Last Filed: 01/26/17 01:29> ED Course and Treatment: Impression: In agreement with resident note, which includes further HPI details. Patient was seen and evaluated with resident, came up with plan and treatment together. Pt, whose past medical history Hypertension, COPD, Diabetes, Crohn disease, and osteoarthritis, presented s/p mechanical fall yesterday morning. Pt states she fell getting out of the tub and unable to get up from the floor for 24 hours. Plan: -- EKG -- CXR -- XR Cervical Spine -- Labs, VBG, blood cultures -- UA, urine cultures -- IV fluids -- Tylenol -- Reassess and disposition 01/25/17 23:[address] Chiang, who is aware and agrees with plan. Accepts pt in to his service. (Dwain Buenrostro) 01/25/17 19:56 71 year old F presents after expericing fall at home. Will check: CBC, CMP, Urinalysis, CPK, VBG shock panel L shoulder x ray, B/L knee x ray, Pelvic and hip xray, LE doppler US, thoracolumbar x ray, EKG Patient will be given: NS 1 L bolus and Tylenol for pain 01/25/17 23:[address] Baca who accepts patient under his service for observation. (Nati Macias) - Lab Interpretations Narrative Lab Interpretation (Text): 01/25/17 23:33 Unremarkable (Nati Macias) Lab Results: 01/25/17 20:15 01/25/17 20:15 Lab Results 01/25/17 20:15: Sodium 142, Chloride 105, Potassium 3.4 L, Carbon Dioxide 29, Anion Gap 11, BUN 10, Creatinine 0.6, Est GFR ( Amer) > 60, Est GFR (Non- Af Amer) > 60, Random Glucose 100, Calcium 9.0, Total Bilirubin 0.7, AST 46 H, ALT 57 H, Alkaline Phosphatase 90, Total Creatine Kinase 139, Total Protein 6.0 , Albumin 2.9 L, Globulin 3.1, Albumin/Globulin Ratio 0.9 L 01/25/17 20:15: pO2 28 L, VBG pH 7.38, VBG pCO2 50.0, VBG HCO3 29.6 H, VBG Total CO2 31.1 H, VBG O2 Sat (Calc) 55.8, VBG Base Excess 3.4 H, VBG Potassium 3.2 L, Sodium 143.0, Chloride 110.0 H, Glucose 105, Lactate 1.3, FiO2 21.0, Venous Blood Potassium 3.2 L 01/25/17 20:15: WBC 7.9 D, RBC 3.88, Hgb 11.1 L, Hct 33.8 L, MCV 87.1, MCH 28.6 , MCHC 32.8, RDW 15.5 H, Plt Count 315, MPV 8.7 - RAD Interpretation Narrative RAD Interpretations (Text): 01/25/17 21:53 shoulder x ray shows questionable posterior subluxation 01/25/17 23:24 negative LE US 01/25/17 23:33 Spine, knees and pelvis xray look unremarkable (Karim,Nati) Radiology Orders: 01/25/17 19:43 Hip Bi with Pelvis Fall Protocol [HIP MIN 2V W/ PELVIS ANGELA] [RAD] Stat KNEES BILATERAL [RAD] Stat SHOULDER LEFT [RAD] Stat 01/25/17 19:47 CHEST PORTABLE [RAD] Stat SPINE THORACOLUMBAR MIN 2 VIEW [RAD] Stat DUPLEX LOWER EXTRM VEIN BILAT [US] Stat 01/25/17 20:03 CERVICAL SPINE AP & LATERAL [RAD] Stat - EKG Interpretation EKG Interpretation (Text): 01/26/17 00:29 NSR HR of [address] changes. left axis (Karim,Nati) - Medication Orders Current Medication Orders: Acetaminophen (Tylenol 325mg Tab) 650 mg PO Q6H PRN PRN Reason: Fever >100.4 F Sodium Chloride (Sodium Chloride 0.9%) 1,000 mls @ 100 mls/hr IV .Q10H STA Stop: 01/26/17 10:12 Discontinued Medications Acetaminophen (Tylenol 325mg Tab) 650 mg PO STAT STA Stop: 01/25/17 19:49 Last Admin: 01/25/17 20:25 Dose: Acetaminophen (Tylenol 325mg Tab) 650 mg PO STAT STA Stop: 01/25/17 20:05 Last Admin: 01/25/17 20:25 Dose: 650 mg Sodium Chloride (Sodium Chloride 0.9%) 1,000 mls @ 999 mls/hr IV .Q1H1M STA Stop: 01/25/17 20:48 Last Admin: 01/25/17 20:25 Dose: 999 mls/hr Oxycodone/Acetaminophen (Percocet 5/325 Mg Tab) 1 tab PO STAT STA Stop: 01/25/17 20:00 Last Admin: 01/25/17 20:25 Dose: Potassium Chloride (K-Dur 20 Meq Er Tab) 20 meq PO STAT STA Stop: 01/25/17 20:59 Last Admin: 01/25/17 21:09 Dose: 20 meq Disposition/Present on Arrival <Dwain Buenrostro - Last Filed: 01/26/17 00:03> - Present on Arrival Any Indicators Present on Arrival: Yes History of DVT/PE: No History of Uncontrolled Diabetes: Yes Urinary Catheter: No History of Decub. Ulcer: No History Surgical Site Infection Following: None - Disposition Have Diagnosis and Disposition been Completed?: Yes Disposition Time: 23:35 Patient Plan: Admission, Observation <Nati Macias - Last Filed: 01/26/17 01:29> - Disposition Diagnosis: Fall Disposition: HOSPITALIZED Patient Problems: Current Active Problems Problem Status Onset Fall Acute Condition: STABLE Referrals: Giovany Chiang MD [Primary Care Provider] - Follow up with primary
[2017-01-25] MEDS ORDERED: Oxycodone/Acetaminophen 5/325 mg Tab PO STA (19:59)
[2017-01-25 20:30] LABS: HEMOGLOBIN 11.1 gm/dL (12.0-16.0); MEAN CELL VOLUME 87.1 fL (80.0-105.0); MEAN CORPUSCULAR HEMOGLOBIN 28.6 pg (25.0-35.0); MEAN CORPUSCULAR HGB CONC 32.8 g/dl (31.0-37.0); MEAN PLATELET VOLUME 8.7 fl (7.0-11.0); RBC 3.88 10^6/uL (3.5-6.1); RED CELL DISTRIBUTION WIDTH 15.5 % (11.5-14.5); WHITE BLOOD COUNT 7.9 10^3/ul (4.5-11.0)
[2017-01-25 20:32] LABS: VENOUS BLOOD GAS BASE EXCESS 3.4 mmol/L (0.0-2.0); VENOUS BLOOD GAS PO2 28 mm/Hg (30-55); VENOUS BLOOD PH 7.38 (7.32-7.43)
[2017-01-25 20:40] LABS: ALB/GLOB RATIO 0.9 (1.1-1.8); ALBUMIN 2.9 g/dL (3.0-4.8); ALT/SGPT 57 U/L (7-56); AST/SGOT 46 U/L (15-39); BLOOD UREA NITROGEN 10 mg/dL (7-21); GFR AFRICAN-AMERICAN > 60; GFR NON-AFRICAN AMERICAN > 60
[2017-01-25] MEDS ORDERED: Potassium Chloride 20 mEq ER Tab PO STA (20:58)
[2017-01-26] MEDS: Sodium Chloride 0.9% 1,000 ML IV STA ×2 (04:48→09:35)
[2017-01-26] MEDS ORDERED: Oxycodone/Acetaminophen 5/325 mg Tab PO PRN (06:16)
[2017-01-26 06:48] LABS: PH,URINE 5.5 (4.7-8.0); URINE BILIRUBIN SMALL (NEGATIVE); URINE BLOOD SMALL (NEGATIVE); URINE GLUCOSE (UA) NEGATIVE (NEGATIVE); URINE LEUKOCYTE ESTERASE LARGE Leu/uL (NEGATIVE); URINE NITRATE NEGATIVE (NEGATIVE); URINE PROTEIN TRACE mg/dL (<30 mg/dL); URINE UROBILINOGEN 0.2 E.U./dL (<1 E.U./dL)
[2017-01-26 06:56] LABS: URINE APPEARANCE SL CLOUDY (CLEAR); URINE COLOR YELLOW (YELLOW)
[2017-01-26 07:03] LABS: URINE BACTERIA MOD (NEG)
[2017-01-26] MEDS: Insulin Reg-LOW-Coverage SC SCH ×4 (09:30→22:22)
--- NOTE | 2017-01-26 09:38 | RAD ---
PROCEDURE: Bilateral Knee Radiographs. HISTORY: fall COMPARISON: None. FINDINGS: BONES: Right Knee: Normal. No fracture. Left Knee: Normal. No fracture. JOINTS: Right Knee: There is joint space narrowing in the medial compartment with osteophyte formation Left knee: Minimal joint space narrowing medial compartment SOFT TISSUES: Right Knee: Normal. Left Knee: Normal. JOINT EFFUSION: Right Knee: None. Left Knee: None. OTHER FINDINGS: None. IMPRESSION: Osteoarthritis
--- NOTE | 2017-01-26 09:39 | RAD ---
PROCEDURE: Radiographs of the pelvis and bilateral hips HISTORY: fall COMPARISON: None. FINDINGS: BONES: Pelvis: Unremarkable. Right hip:Unremarkable. Left hip:Unremarkable. JOINTS: Right hip: Unremarkable. Left hip: Unremarkable. Sacroiliac Joints: Unremarkable. Pubic symphysis: Unremarkable. SOFT TISSUES: Normal. OTHER FINDINGS: None. IMPRESSION: Unremarkable radiographs of the hips and pelvis.
--- NOTE | 2017-01-26 09:40 | RAD ---
HISTORY: fall COMPARISON: No prior. FINDINGS: BONES: Alignment maintained. No fracture. DISC SPACES: Normal. SOFT TISSUES: Normal. OTHER FINDINGS: None. IMPRESSION: Normal radiographs of the thoracic spine.
--- NOTE | 2017-01-26 09:41 | RAD ---
PROCEDURE: Radiographs of the Left Shoulder HISTORY: fall COMPARISON: No prior. FINDINGS: BONES: Normal. No fracture. JOINTS: Degenerative changes in the acromioclavicular joint with an inferior acromial spur SOFT TISSUES: Normal. OTHER FINDINGS: None. IMPRESSION: Degenerative changes in the acromioclavicular joint with an inferior acromial spur
--- NOTE | 2017-01-26 09:42 | CP.PCM.HP ---
History of Present Illness - History of Present Illness History of Present Illness: CC: Fall Patient is a 71 y/o with PMH of htn, copd, NIDDM2, OA, pyoderma gangrenosum, PUD , morbidly obese, crohn's disease, esophagitis, recent biopsy for a renal cyst presenting s/p fall. Patient states while coming out of the shower on Thursday morning she slipped and fell to the ground. Patient states she wasn't able to get up, thus she lay there until her daughter broke into the house and found her yesterday. Patient denies LOC, states she was aware of the events as it unfolded. Patient states last time she ate was Thursday night. Patient stooled and urinated on herself due to inability to get up. Patient denies seizure like activity. Patient denies prior histories. Patient is currently comfortable, asking for food. Patient denies cp, sob, n.v, admits to chronic diarrhea due to crohn's disease. Patient denies fever, chills , denies headache or dizziness. Denies abdominal pain or dysuria. PMH: HTN, COPD, NIDDM2, OA, pyoderma gangrenosum, PUD, morbidly obese, crohn's disease, esophagitis, recent biopsy for a renal cyst. PSH: renal biopsy Social: lives by herself, uses a cane occasionally. Patient denies h/o tobacco, alcohol or illicit drug use. Present on Admission - Present on Admission Any Indicators Present on Admission: No History of DVT/PE: No History of Uncontrolled Diabetes: No Urinary Catheter: No Decubitus Ulcer Present: No History Surgical Site Infection Following: None Review of Systems - Review of Systems All systems: reviewed and no additional remarkable complaints except Review of Systems: 12 point ROS reviewed, all negative except as per HPI. Past Patient History - Infectious Disease Hx of Infectious Diseases: None - Tetanus Immunizations Tetanus Immunization: Unknown - Past Social History Smoking Status: Former Smoker Alcohol: None Drugs: Denies Home Situation {Lives}: Alone - CARDIAC Hx Cardiac Disorders: Yes Hx Hypertension: Yes Hx Pacemaker: No - PULMONARY Hx Respiratory Disorders: Yes Hx Asthma: Yes - NEUROLOGICAL Hx Neurological Disorder: No - HEENT Hx HEENT Problems: Yes Hx Deafness: (hearing aids both ears) Other/Comment: glasses - RENAL Hx Chronic Kidney Disease: No - ENDOCRINE/METABOLIC Hx Endocrine Disorders: Yes Hx Diabetes Mellitus Type 2: Yes - HEMATOLOGICAL/ONCOLOGICAL Hx Blood Transfusions: No Hx Blood Transfusion Reaction: No - INTEGUMENTARY Hx Dermatological Problems: Yes (pyoderma gangrenosum) Other/Comment: "small pimple" r breast became larger had it removed by dr quiros was ok for 2 yrs no cancer, then opened up 2nd sx done wound not healing 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, had 3rd sx to remove more of the lesion 11/2015 now being treated at wound center by dr mindi sofia and according to pt wound is healing except for one opening under breast which drains bloody fluid - MUSCULOSKELETAL/RHEUMATOLOGICAL Hx Falls: No - GASTROINTESTINAL Hx Gastrointestinal Disorders: Yes (obese) Hx Crohn's Disease: Yes Hx Diverticulitis: Yes Hx Gall Bladder Disease: No Hx Gastroesophageal Reflux: No Hx Ileostomy: No Hx Liver Failure: No Hx Pancreatitis: No HX Swallowing Problems: No Other/Comment: perforated diverticulum had colostomy and reversal 03/09/2014, colonoscopy 08/12/16 dx polyp, diverticulosis, s/p colon resection, hemorrhoids, r/o ibd - GENITOURINARY/GYNECOLOGICAL Hx Genitourinary Disorders: (fibroids, urinary frequency) Hx Hematuria: No Hx Incontinence: No Hx Sexually Transmitted Disorders: No Hx Urinary Tract Infection: No Other/Comment: swollen labia and draining wound started 2 months ago as a pimple , now draining bloody fluid painful worse with movement - PSYCHIATRIC Hx Psychophysiologic Disorder: No Hx Emotional Abuse: No Hx Physical Abuse: No Hx Substance Use: No - SURGICAL HISTORY Hx Appendectomy: Yes Other/Comment: 3 surgical procedures to excise lesion on r brreast, colostomy and reversal from perforated diverticulum,r knee arthoscopic sx, umbilical hernia repair, d and c x2, cystoscope/urreteral, r brreast bx's of non healing wound 06/09/16, ct scan guided diverticular abcess drainage 11/08/13, cystoscope insertion of b/l ureteral catheters - ANESTHESIA Hx Anesthesia Reactions: Yes (RESP ARREST AFTER COLOSTOMY; NAUSEA/VOMITING) Hx Malignant Hyperthermia: No Meds Allergies/Adverse Reactions: Allergies Allergy/AdvReac Type Severity Reaction Status Date / Time EGG WHITES AdvReac RASH Uncoded 01/26/17 11:45 Physical Exam - Constitutional Appears: No Acute Distress, Chronically Ill - Head Exam Head Exam: ATRAUMATIC, NORMAL INSPECTION, NORMOCEPHALIC - Eye Exam Eye Exam: EOMI, Normal appearance, PERRL. absent: Scleral icterus Pupil Exam: NORMAL ACCOMODATION, PERRL - ENT Exam ENT Exam: Mucous Membranes Moist - Neck Exam Neck exam: Positive for: Full Rom, Normal Inspection - Respiratory Exam Respiratory Exam: Clear to Auscultation Bilateral, NORMAL BREATHING PATTERN. absent: Rales, Rhonchi, Wheezes, Respiratory Distress, Stridor - Cardiovascular Exam Cardiovascular Exam: REGULAR RHYTHM, +S1, +S2. absent: Bradycardia, Tachycardia , Systolic Murmur - GI/Abdominal Exam GI & Abdominal Exam: Normal Bowel Sounds, Soft. absent: Distended, Firm, Guarding, Rigid, Tenderness Additional comments: Obese abdomen. - Extremities Exam Extremities exam: Positive for: pedal edema - Back Exam Back exam: NORMAL INSPECTION - Neurological Exam Neurological exam: Alert, CN II-XII Intact, Oriented x3, Reflexes Normal - Psychiatric Exam Psychiatric exam: Normal Affect, Normal Mood - Skin Skin Exam: Abrasion, Dry, Rash, Warm Results - Vital Signs Recent Vital Signs: Last Vital Signs Temp 97.8 F 01/26/17 06:00 Pulse 88 01/26/17 06:00 Resp 18 01/26/17 06:00 BP 142/75 01/26/17 06:00 Pulse Ox 95 01/26/17 06:00 - Labs Result Diagrams: 01/25/17 20:15 01/25/17 20:15 Labs: Laboratory Results - last 24 hr 01/26/17 06:15 Urine Color Yellow Urine Appearance Sl cloudy Urine pH 5.5 Ur Specific [place] >= 1.030 Urine Protein Trace H Urine Glucose (UA) Negative Urine Ketones 15 H Urine Blood Small H Urine Nitrate Negative Urine Bilirubin Small H Urine Urobilinogen 0.2 Ur Leukocyte Esterase Large H Urine RBC 1 - 3 Urine WBC 10 - 15 Ur Epithelial Cells 1 - 3 Urine Bacteria Mod Assessment & Plan - Assessment and Plan (Free Text) Assessment: 1) Fall likely mechanical 2nd to gait instability, r/o syncope. 2) Hypokalemia 3) Chronic transaminitis likely crohn related 4) HTN, 5) COPD, 6) NIDDM2, 7) OA, 8) pyoderma gangrenosum, 9) PUD, 10) morbidly obese, 11) Crohn's disease, 12) esophagitis, 13) recent biopsy for a renal cyst Plan: Will obtain cardiac enzymes, tsh, and pro-bnp for syncope work up and to check for rhabdo. Neurology, cardio on consult. Echo ordered. Patient will need PT for gait instability, UA positive for UTI, however no symptoms, no leukocytosis, will monitor off of antibiotics for now, will follow up with urine culture and bcx. Electrolytes repleted, will continue to monitor. Heme/onc on consult for renal mass/cysts s/p biopsy. Psych consult for depression. Will continue with lasix, lisinopril for htn and chf. Patient is also on percocet for pain . Patient is on carafate and lactobacillus for PUD and chronic diarrhea. Glucotrol and ISS for diabetes. Patient seen, examined, and case discussed with Dr Chiang. - Date & Time Date: 01/26/17 Time: 09:30
--- NOTE | 2017-01-26 09:42 | RAD ---
PROCEDURE: Cervical Spine Radiographs. HISTORY: Pain. COMPARISON: None. FINDINGS: BONES: Alignment maintained. No fracture. Dens Intact. DISC SPACES: Normal. SOFT TISSUES: Normal. No prevertebral soft tissue swelling. OTHER FINDINGS: None. IMPRESSION: Normal cervical spine radiographs
--- NOTE | 2017-01-26 09:47 | RAD ---
HISTORY: fall COMPARISON: 01/07/2017 FINDINGS: LUNGS: No active pulmonary disease. PLEURA: No significant pleural effusion identified, no pneumothorax apparent. CARDIOVASCULAR: Normal. OSSEOUS STRUCTURES: No significant abnormalities. VISUALIZED UPPER ABDOMEN: Normal. OTHER FINDINGS: None. IMPRESSION: No active disease.
--- NOTE | 2017-01-26 11:47 | CP.PCM.CON ---
<Ramsey Hughes - Last Filed: 01/26/17 11:36> History of Present Illness - History of Present Illness History of Present Illness: Consult Note for Dr. Shi Reason For Consult: Syncope, fall 71 y/o F with PMH of HTN, COPD, Crohn's disease, DM, diverticulitis, and OA presents to the ED s/p mechanical fall at home. Pt states she was taking a shower at home and had trouble getting out of her tub. Pt states she has severe osteoarthritis in her knees and it is difficult for her to bend her leg to get out of the shower. As she was getting out of the tub, she slipped and fell on her left side. Pt states she did not hit her head or lose consciousness. Pt also denies tongue biting or loss of bowel/bladder function. Pt was unable to get up on her own and was found by her daughter the next day. At this time, her daughter brought her to the ED. Cervical spine x-ray demonstrated no abnormalities. Currently, patient states she feels well with no complaints. She does however mention lower body weakness secondary to pain in her knees from osteoarthritis. Pt also admits to worsening of her vision recently. Denies CP, SOB, N/V/D, fever, chills, syncope, dizziness, diplopia. PMH: HTN, COPD, Crohn's disease, DM, diverticulitis and OA Surgical Hx: Partial mastectomy, colostomy, and colostomy reversal Family Hx: Father - CAD, [place] Social Hx: Denies alcohol, tobacco, or illicit drug use Allergies: Egg whites Medications: Reviewed, as per chart Review of Systems - Constitutional Constitutional: Fatigue. absent: Chills, Fever - EENT Eyes: Change in Vision. absent: Diplopia - Cardiovascular Cardiovascular: absent: Chest Pain, Irregular Heart Rhythm - Respiratory Respiratory: absent: Cough, Dyspnea - Gastrointestinal Gastrointestinal: absent: Diarrhea, Nausea, Vomiting - Genitourinary Genitourinary: absent: Dysuria, Hematuria - Musculoskeletal Musculoskeletal: Muscle Weakness - Integumentary Integumentary: absent: New Lesions, Rash - Neurological Neurological: absent: Dizziness, Numbness, Headaches, Syncope, Tingling - Hematologic/Lymphatic Hematologic: absent: Easy Bleeding, Easy Bruising Past Patient History - Infectious Disease Hx of Infectious Diseases: None - Tetanus Immunizations Tetanus Immunization: Unknown - Past Social History Smoking Status: Former Smoker - CARDIAC Hx Cardiac Disorders: Yes Hx Hypertension: Yes Hx Pacemaker: No - PULMONARY Hx Respiratory Disorders: Yes Hx Asthma: Yes - NEUROLOGICAL Hx Neurological Disorder: No - HEENT Hx HEENT Problems: Yes Hx Deafness: (hearing aids both ears) Other/Comment: glasses - RENAL Hx Chronic Kidney Disease: No - ENDOCRINE/METABOLIC Hx Endocrine Disorders: Yes Hx Diabetes Mellitus Type 2: Yes - HEMATOLOGICAL/ONCOLOGICAL Hx Blood Transfusions: No Hx Blood Transfusion Reaction: No - INTEGUMENTARY Hx Dermatological Problems: Yes (pyoderma gangrenosum) Other/Comment: "small pimple" r breast became larger had it removed by dr quiros was ok for 2 yrs no cancer, then opened up 2nd sx done wound not healing was dx with dermagangrenous fed by abraham, had 3rd sx to remove more of the lesion 11/2015 now being treated at wound center by dr mindi sofia and according to pt wound is healing except for one opening under breast which drains bloody fluid - MUSCULOSKELETAL/RHEUMATOLOGICAL Hx Falls: No - GASTROINTESTINAL Hx Gastrointestinal Disorders: Yes (obese) Hx Crohn's Disease: Yes Hx Diverticulitis: Yes Hx Gall Bladder Disease: No Hx Gastroesophageal Reflux: No Hx Ileostomy: No Hx Liver Failure: No Hx Pancreatitis: No HX Swallowing Problems: No Other/Comment: perforated diverticulum had colostomy and reversal 03/09/2014, colonoscopy 08/12/16 dx polyp, diverticulosis, s/p colon resection, hemorrhoids, r/o ibd - GENITOURINARY/GYNECOLOGICAL Hx Genitourinary Disorders: (fibroids, urinary frequency) Hx Hematuria: No Hx Incontinence: No Hx Sexually Transmitted Disorders: No Hx Urinary Tract Infection: No Other/Comment: swollen labia and draining wound started 2 months ago as a pimple , now draining bloody fluid painful worse with movement - PSYCHIATRIC Hx Psychophysiologic Disorder: No Hx Emotional Abuse: No Hx Physical Abuse: No Hx Substance Use: No - SURGICAL HISTORY Hx Appendectomy: Yes Other/Comment: 3 surgical procedures to excise lesion on r brreast, colostomy and reversal from perforated diverticulum,r knee arthoscopic sx, umbilical hernia repair, d and c x2, cystoscope/urreteral, r brreast bx's of non healing wound 06/09/16, ct scan guided diverticular abcess drainage 11/08/13, cystoscope insertion of b/l ureteral catheters - ANESTHESIA Hx Anesthesia Reactions: Yes (RESP ARREST AFTER COLOSTOMY; NAUSEA/VOMITING) Hx Malignant Hyperthermia: No Meds Allergies/Adverse Reactions: Allergies Allergy/AdvReac Type Severity Reaction Status Date / Time EGG WHITES AdvReac RASH Uncoded 01/26/17 11:45 - Medications Medications: Current Medications Acetaminophen (Tylenol 325mg Tab) 650 mg PO Q6H PRN PRN Reason: Fever >100.4 F Glipizide (Glucotrol) 5 mg PO DAILY [facility] Last Admin: 01/26/17 10:07 Dose: Not Given Insulin Human Regular (Humulin R Low) 0 units SC ACHS [facility] PRN Reason: Protocol Last Admin: 01/26/17 09:30 Dose: Not Given Lactobacillus Acidophilus (Bacid Acidophilus) 1 cap PO DAILY [facility] Lisinopril (Zestril) 20 mg PO DAILY [facility] Last Admin: 01/26/17 10:06 Dose: 20 mg Oxycodone/Acetaminophen (Percocet 5/325 Mg Tab) 1 tab PO Q12H PRN PRN Reason: Pain, moderate (4-7) Stop: 01/29/17 06:17 Sucralfate (Carafate Oral Susp) 1 gm PO 0600,1600 [facility] Physical Exam - Constitutional Appears: Well, No Acute Distress - Head Exam Head Exam: ATRAUMATIC, NORMAL INSPECTION, NORMOCEPHALIC - Eye Exam Eye Exam: EOMI, PERRL - ENT Exam ENT Exam: Mucous Membranes Moist - Neck Exam Neck exam: Positive for: Normal Inspection. Negative for: Lymphadenopathy - Respiratory Exam Respiratory Exam: Clear to Auscultation Bilateral, NORMAL BREATHING PATTERN. absent: Rales, Rhonchi, Wheezes - Cardiovascular Exam Cardiovascular Exam: RRR, +S1, +S2 - GI/Abdominal Exam GI & Abdominal Exam: Normal Bowel Sounds, Soft. absent: Tenderness - Extremities Exam Extremities exam: Positive for: normal inspection. Negative for: calf tenderness, pedal edema - Neurological Exam Neurological exam: Alert, CN II-XII Intact, Oriented x3 Additional comments: B/l Upper extremity muscle strength - 5/5 B/l Lower extremity muscle strength - 3/5 - Skin Skin Exam: Intact, Normal Color, Warm Results - Vital Signs Recent Vital Signs: Last Vital Signs Temp 97.8 F 01/26/17 06:00 Pulse 91 H 01/26/17 10:06 Resp 18 01/26/17 09:30 BP 148/75 01/26/17 10:06 Pulse Ox 96 01/26/17 09:30 - Labs Result Diagrams: 01/25/17 20:15 01/25/17 20:15 Labs: Laboratory Results - last 24 hr 01/26/17 01/26/17 06:15 09:43 POC Glucose (mg/dL) 96 Urine Color Yellow Urine Appearance Sl cloudy Urine pH 5.5 Ur Specific [place] >= 1.030 Urine Protein Trace H Urine Glucose (UA) Negative Urine Ketones 15 H Urine Blood Small H Urine Nitrate Negative Urine Bilirubin Small H Urine Urobilinogen 0.2 Ur Leukocyte Esterase Large H Urine RBC 1 - 3 Urine WBC 10 - 15 Ur Epithelial Cells 1 - 3 Urine Bacteria Mod Assessment & Plan - Assessment and Plan (Free Text) Plan: 71 y/o F with PMH of HTN, COPD, Crohn's disease, DM, diverticulitis, and OA presents to the ED for mechanical fall. Pt is currently neurologically stable at this time. Pt will benefit from having orthostatic BP checked along with physical therapy to assist in lower extremity weakness and poor gait. Social work may be able to assist patient in recommendations for making her household safer due to hx of severe OA and weakness. Plan: Orthostatic vitals Physical therapy for poor gait and deconditioning Social Work for home safety Avoid sedative medications Saul, PGY-2 <Larry Shi - Last Filed: 01/26/17 12:39> Meds - Medications Medications: Current Medications Acetaminophen (Tylenol 325mg Tab) 650 mg PO Q6H PRN PRN Reason: Fever >100.4 F Enoxaparin Sodium (Lovenox) 40 mg SC DAILY [facility] PRN Reason: Protocol Furosemide (Lasix) 40 mg PO BID [facility] Last Admin: 01/26/17 12:30 Dose: 40 mg Glipizide (Glucotrol) 5 mg PO DAILY [facility] Last Admin: 01/26/17 10:07 Dose: Not Given Insulin Human Regular (Humulin R Low) 0 units SC ACHS [facility] PRN Reason: Protocol Last Admin: 01/26/17 12:14 Dose: 1 units Lactobacillus Acidophilus (Bacid Acidophilus) 1 cap PO DAILY [facility] Last Admin: 01/26/17 12:15 Dose: 1 cap Lisinopril (Zestril) 20 mg PO DAILY [facility] Last Admin: 01/26/17 10:06 Dose: 20 mg Oxycodone/Acetaminophen (Percocet 5/325 Mg Tab) 1 tab PO Q12H PRN PRN Reason: Pain, moderate (4-7) Stop: 01/29/17 06:17 Sucralfate (Carafate Oral Susp) 1 gm PO 0600,1600 [facility] Results - Vital Signs Recent Vital Signs: Last Vital Signs Temp 97.8 F 01/26/17 06:00 Pulse 93 H 01/26/17 11:00 Resp 18 01/26/17 11:00 BP 135/75 01/26/17 12:30 Pulse Ox 95 01/26/17 11:00 - Labs Result Diagrams: 01/25/17 20:15 01/25/17 20:15 Labs: Laboratory Results - last 24 hr 01/26/17 01/26/17 06:15 09:43 POC Glucose (mg/dL) 96 Urine Color Yellow Urine Appearance Sl cloudy Urine pH 5.5 Ur Specific [place] >= 1.030 Urine Protein Trace H Urine Glucose (UA) Negative Urine Ketones 15 H Urine Blood Small H Urine Nitrate Negative Urine Bilirubin Small H Urine Urobilinogen 0.2 Ur Leukocyte Esterase Large H Urine RBC 1 - 3 Urine WBC 10 - 15 Ur Epithelial Cells 1 - 3 Urine Bacteria Mod Attending/Attestation - Attestation I have personally seen and examined this patient.: Yes I have fully participated in the care of the patient.: Yes I have reviewed all pertinent clinical information: Yes
[2017-01-26] MEDS: Lactobacillus Acidophilus 500 MU Cap PO SCH (12:15)
[2017-01-26] MEDS: Furosemide 40 mg/5 mL Oral Soln UD PO SCH ×2 (12:30→17:05)
[2017-01-26 12:47] LABS: ALBUMIN 2.8 g/dL (3.0-4.8); ALT/SGPT 53 U/L (7-56); AST/SGOT 36 U/L (15-39); BLOOD UREA NITROGEN 8 mg/dL (7-21); CALCIUM 8.3 mg/dL (8.4-10.5); GFR AFRICAN-AMERICAN > 60; GFR NON-AFRICAN AMERICAN > 60
[2017-01-26 12:58] LABS: B-TYPE NATRIURETIC PEPTIDE 438 pg/mL (0-450)
[2017-01-26 13:04] LABS: TROPONIN I < 0.01 ng/mL
[2017-01-26] MEDS: Sucralfate 1 gm/10 ml Oral Susp UD PO SCH (17:05)
--- NOTE | 2017-01-26 17:09 | US ---
HISTORY: Leg pain and swelling. Evaluate for DVT PHYSICIAN(S): Guido Rodriguez MD. TECHNIQUE: Duplex sonography and color-flow Doppler with graded compression were used to evaluate the deep venous systems of both lower extremities. FINDINGS: The visualized deep venous systems of both lower extremities are sonographically normal and compressible. Normal wave forms and augmentation are seen. There is no sonographic evidence for deep venous thrombosis in the visualized segments of both lower extremities. IMPRESSION: No sonographic evidence for deep venous thrombosis in the visualized segments of both lower extremities.
[2017-01-26 17:11] VITALS: BMI 36.8
[2017-01-26] MEDS ORDERED: Pneumococcal 23-Valent Vaccine IM ONE (17:11)
--- NOTE | 2017-01-26 17:48 | CP.PCM.HP ---
History of Present Illness - History of Present Illness History of Present Illness: Pt seen and examined. Reviewed the note by the resident and I do agree with it. She will need Cardiac and neuro evaluation. May need TCU and PT. Present on Admission - Present on Admission Any Indicators Present on Admission: No Past Patient History - Infectious Disease Hx of Infectious Diseases: None - Tetanus Immunizations Tetanus Immunization: Unknown - Past Social History Smoking Status: Former Smoker - CARDIAC Hx Cardiac Disorders: Yes Hx Hypertension: Yes Hx Pacemaker: No Hx Peripheral Edema: Yes - PULMONARY Hx Respiratory Disorders: Yes (SMOKED CIGARETTES.QUIT.) Hx Asthma: Yes Hx Chronic Obstructive Pulmonary Disease (COPD): Yes - NEUROLOGICAL Hx Neurological Disorder: Yes - HEENT Hx HEENT Problems: Yes Hx Deafness: (hearing aids both ears) Other/Comment: glasses - RENAL Hx Chronic Kidney Disease: Yes (RENAL CYST,RECENT BX) - ENDOCRINE/METABOLIC Hx Endocrine Disorders: Yes Hx Diabetes Mellitus Type 2: Yes - HEMATOLOGICAL/ONCOLOGICAL Hx Blood Disorders: No - INTEGUMENTARY Hx Dermatological Problems: Yes (pyoderma gangrenosum,CANDIDAL INTERTRIGO) Other/Comment: "small pimple" r breast became larger had it removed by dr quiros was ok for 2 yrs no cancer, then opened up 2nd sx done wound not healing was dx with dermagangrenous fed by abraham, had 3rd sx to remove more of the lesion 11/2015 now being treated at wound center by dr mindi sofia and according to pt wound is healing except for one opening under breast which drains bloody fluid - MUSCULOSKELETAL/RHEUMATOLOGICAL Hx Musculoskeletal Disorders: Yes Hx Falls: Yes (LAST FALL 01-24-17) Hx Osteoarthritis: Yes Hx Unsteady Gait: Yes (WALKER) - GASTROINTESTINAL Hx Gastrointestinal Disorders: Yes (obese) Hx Crohn's Disease: Yes Hx Diverticulitis: Yes Hx Gall Bladder Disease: No Hx Gastroesophageal Reflux: No Hx Ileostomy: No Hx Liver Failure: No Hx Pancreatitis: No HX Swallowing Problems: No Hx Ulcer: Yes Other/Comment: perforated diverticulum had colostomy and reversal 03/09/2014, colonoscopy 08/12/16 dx polyp, diverticulosis, s/p colon resection, hemorrhoids, r/o ibd - GENITOURINARY/GYNECOLOGICAL Hx Genitourinary Disorders: Yes (fibroids, urinary frequency,D AND C,SWOLLEN LABIA) Hx Hematuria: No Hx Incontinence: Yes Hx Sexually Transmitted Disorders: No Hx Urinary Tract Infection: Yes Other/Comment: swollen labia and draining wound started 2 months ago as a pimple , now draining bloody fluid painful worse with movement - PSYCHIATRIC Hx Psychophysiologic Disorder: No Hx Emotional Abuse: No Hx Physical Abuse: No Hx Substance Use: No - SURGICAL HISTORY Hx Surgeries: Yes Hx Appendectomy: Yes Other/Comment: 3 surgical procedures to excise lesion on r brreast, colostomy and reversal from perforated diverticulum,r knee arthoscopic sx, umbilical hernia repair, d and c x2, cystoscope/urreteral, r brreast bx's of non healing wound 06/09/16, ct scan guided diverticular abcess drainage 11/08/13, cystoscope insertion of b/l ureteral catheters - ANESTHESIA Hx Anesthesia Reactions: Yes (RESP ARREST AFTER COLOSTOMY; NAUSEA/VOMITING) Hx Malignant Hyperthermia: No Meds Allergies/Adverse Reactions: Allergies Allergy/AdvReac Type Severity Reaction Status Date / Time EGG WHITES AdvReac RASH Uncoded 01/26/17 11:45 Results - Vital Signs Recent Vital Signs: Last Vital Signs Temp 98.2 F 01/26/17 16:15 Pulse 91 H 01/26/17 16:15 Resp 18 01/26/17 16:15 BP 125/69 01/26/17 17:05 Pulse Ox 96 01/26/17 14:35 - Labs Result Diagrams: 01/25/17 20:15 01/26/17 12:33 Labs: Laboratory Results - last 24 hr 01/26/17 01/26/17 01/26/17 06:15 09:43 12:33 Sodium 141 Potassium 3.3 L Chloride 105 Carbon Dioxide 28 Anion Gap 11 BUN 8 Creatinine 0.6 Est GFR ( Amer) > 60 Est GFR (Non-Af Amer) > 60 POC Glucose (mg/dL) 96 Random Glucose 162 H Calcium 8.3 L Total Bilirubin 0.7 AST 36 ALT 53 Alkaline Phosphatase 85 Lactate Dehydrogenase 873 H Total Creatine Kinase 64 Troponin I < 0.01 NT-Pro-B Natriuret Pep 438 Total Protein 5.7 L Albumin 2.8 L Globulin 2.9 Albumin/Globulin Ratio 1.0 L TSH 3rd Generation Urine Color Yellow Urine Appearance Sl cloudy Urine pH 5.5 Ur Specific [place] >= 1.030 Urine Protein Trace H Urine Glucose (UA) Negative Urine Ketones 15 H Urine Blood Small H Urine Nitrate Negative Urine Bilirubin Small H Urine Urobilinogen 0.2 Ur Leukocyte Esterase Large H Urine RBC 1 - 3 Urine WBC 10 - 15 Ur Epithelial Cells 1 - 3 Urine Bacteria Mod 01/26/17 01/26/17 12:33 16:21 Sodium Potassium Chloride Carbon Dioxide Anion Gap BUN Creatinine Est GFR ( Amer) Est GFR (Non-Af Amer) POC Glucose (mg/dL) 206 H Random Glucose Calcium Total Bilirubin AST ALT Alkaline Phosphatase Lactate Dehydrogenase Total Creatine Kinase Troponin I NT-Pro-B Natriuret Pep Total Protein Albumin Globulin Albumin/Globulin Ratio TSH 3rd Generation 0.71 Urine Color Urine Appearance Urine pH Ur Specific [place] Urine Protein Urine Glucose (UA) Urine Ketones Urine Blood Urine Nitrate Urine Bilirubin Urine Urobilinogen Ur Leukocyte Esterase Urine RBC Urine WBC Ur Epithelial Cells Urine Bacteria
--- NOTE | 2017-01-26 21:53 | CON ---
CARDIOLOGY PHYSICIAN: Dr. Jaquan Zapata. REASON FOR CONSULTATION: Syncope, cardiac evaluation. BRIEFT CLINICAL HISTORY: A 71-year-old morbidly obese female with past medical history of hypertension, COPD, type 2 diabetes , obstructive sleep apnea, pyoderma gangrenosum, who said that she was in the bathroom, fell down and then able to walk out of the bathroom by crawling and came into the bedroom and remained on the bed for 2 days then came here. Denies any chest pain, shortness of breath, and any palpitation. Denies any loss of consciousness. PAST HISTORY: Significant for type 2 diabetes, hypertension, hyperlipidemia, COPD, pyoderma gangrenosum, peptic ulcer disease, morbid obesity, Crohn's disease, esophagitis. PAST SURGICAL HISTORY: Significant for renal biopsy. SOCIAL HISTORY: Denies any history of alcohol abuse. Denies any substance use. Denies any smoking. FAMILY HISTORY: Nothing significant to accommodate coronary artery disease. Father at age of 70 with CAD. REVIEW OF SYSTEMS: A 14-point review of systems as per HPI. PHYSICAL EXAMINATION: As follows: VITAL SIGNS: Height of the patient is 5 feet 4 inches, weight of the patient 215, body mass 36.9 kg/m2. Temperature afebrile, heart rate 88, blood pressure 139/76. HEENT: PERRLA. Extraocular muscles are intact. NECK: Supple. No carotid bruits or thyromegaly. LUNGS: Chest clear to auscultation. HEART: S1 and S2. Regular. ABDOMEN: Soft. EXTREMITIES: Clubbing and cyanosis negative. LABORATORY DATA: Blood workup as follows: WBC 7.9, hemoglobin 11.1, hematocrit 33.8, platelet count 315. Chemistry shows sodium 141, potassium 3.8, chloride 105, carbon dioxide 28, anion gap of 11, BUN 8, creatinine 0.6. Troponin is 0.01. IMPRESSION: Morbid obesity, protein calorie malnutrition, status post fall, anemia, no evidence of myocardial infarction, no evidence of acute coronary syndrome, rule out orthostatic hypotension, diabetes, hypertension, hyperlipidemia, rule out structural heart disease. RECOMMENDATION: We will check orthostatic hypotension. We will get echo to asses LV function, lipid profile, TSH, hemoglobin A1c. Further recommendation on hospital course. We will follow with you. Thank you Dr. Zamora for providing me the opportunity in taking care of the patient. Jaquan Zapata MD
[2017-01-27 00:40] VITALS: RESP 20
--- NOTE | 2017-01-27 01:03 | CON ---
DATE: IDENTIFYING INFORMATION: The patient is a 71-year-old white female who has appeared depressed. HISTORY OF PRESENT ILLNESS: The patient who has a medical history of hypertension, COPD, diabetes mellitus, OA, pyoderma gangrenosum, PUD, morbid obesity, Crohn disease, esophagitis, and a renal cyst, had come to the hospital after having fallen in her shower 2 days ago. She reportedly was unable to get up and lie there until her daughter who is a nurse broke into the house and found her. The patient denied suffering head trauma or loss of consciousness and was aware of events unfolding before her. The patient reports that her daughter feels that she is depressed, and the patient herself is reactively depressed to the sequence of medical mishaps, including Crohn disease, pyoderma gangrenosum, which had affected her breast, esophagitis, and a rectal abscess. The patient does not have a prior psychiatric history. She is a [place] of [place]. 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 She cried heartily, indicates that she intends to work until she dies. She had at age 24 to a man who was her age and remained then for 15 years. She described him as having been a "bastard," who cheated on her, 14-1/2 out of 15 years of their marriage, which she only at the end. He is the father of her 2 children, daughter age 48 and a son age 46. Her daughter lives in [place], her son in [place]. They are described as good children, healthy, and involved in her life. She has 2 grandchildren. The patient has 3 siblings, close with only one of them. She has denied her family with psychiatric or substance abuse history and denied this in herself. She indicated that she does have friends. The patient appeared to be alert, oriented. I did speak with family, they have depression without suicidality or homicidality. She does not appear to be psychotic. Given the patient's medical travails which seem to be contributing to her depressed mood state, I would suggest that we not langley into medicating the patient, but offer her supportive psychotherapy and monitor her improvement mood-jacobs, as thus her physical condition improved. I have conveyed this to the patient, and I have suggested that if her daughter, who reportedly wants her to be put on antidepressant medication, wants to discuss this further, she can contact me. 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 Thank you as always for this consultation. Justen Haq MD/ PhD
[2017-01-27] MEDS: Sucralfate 1 gm/10 ml Oral Susp UD PO SCH ×2 (06:05→16:25)
[2017-01-27 07:29] LABS: BASO # 0.04 K/mm3 (0.0-2.0); BASO % 0.6 % (0.0-3.0); EOS # 0.3 (0.0-0.7); EOS % 4.8 % (1.5-5.0); GRAN # 3.95 (1.4-6.5); GRAN % 56.3 % (50.0-68.0); HEMOGLOBIN 10.7 g/dL (12.0-16.0); LYMPH % 28.8 % (22.0-35.0); MEAN CELL VOLUME 87.5 fl (80.0-105.0); MEAN CORPUSCULAR HEMOGLOBIN 28.4 pg (25.0-35.0); MEAN CORPUSCULAR HGB CONC 32.4 g/dl (31.0-37.0); MONO # 0.7 (0.1-0.6); MONO % 9.5 % (1.0-6.0); PLATELET COUNT 291 10^3/uL (120.0-450.0); RBC 3.77 10^6/uL (3.5-6.1); RED CELL DISTRIBUTION WIDTH 15.5 % (11.5-14.5)
[2017-01-27] MEDS ORDERED: Potassium Chloride 20 mEq ER Tab PO ONE (07:30)
[2017-01-27] MEDS: Insulin Reg-LOW-Coverage SC SCH ×4 (07:50→21:31)
[2017-01-27 07:51] LABS: ALBUMIN 2.9 g/dL (3.0-4.8); ALT/SGPT 46 U/L (7-56); AST/SGOT 27 U/L (15-39); BLOOD UREA NITROGEN 9 mg/dL (7-21); CALCIUM 8.2 mg/dL (8.4-10.5); GFR AFRICAN-AMERICAN > 60; GFR NON-AFRICAN AMERICAN > 60; HDL CHOLESTEROL 36 mg/dL (29-60); MAGNESIUM 1.2 mg/dL (1.7-2.2)
[2017-01-27 08:03] LABS: LDL CHOLESTEROL 126 mg/dL (0-129)
--- NOTE | 2017-01-27 08:36 | CP.PCM.PN ---
<Serena Baxter - Last Filed: 01/27/17 10:01> Subjective - Date & Time of Evaluation Date of Evaluation: 01/27/17 Time of Evaluation: 07:05 - Subjective Subjective: Progress note for Dr Андрей johnson. Patient reported she had good night sleep. States she's feeling less fatigued. Patient denies cp, sob, n.v.d, denies fever or chills. Objective - Vital Signs/Intake and Output Vital Signs (last 24 hours): Temp Pulse Resp BP Pulse Ox 98.1 F 91 H 20 135/70 97 01/27/17 06:00 01/27/17 06:00 01/27/17 06:00 01/27/17 06:00 01/27/17 06:00 Intake and Output: 01/27/17 01/27/17 06:59 18:59 Intake Total 660 480 Output Total 550 Balance 110 480 - Medications Medications: Current Medications Acetaminophen (Tylenol 325mg Tab) 650 mg PO Q6H PRN PRN Reason: Fever >100.4 F Enoxaparin Sodium (Lovenox) 40 mg SC DAILY [facility] PRN Reason: Protocol Furosemide (Lasix) 40 mg PO BID [facility] Last Admin: 01/26/17 17:05 Dose: 40 mg Glipizide (Glucotrol) 5 mg PO DAILY [facility] Last Admin: 01/26/17 10:07 Dose: Not Given Insulin Human Regular (Humulin R Low) 0 units SC ACHS [facility] PRN Reason: Protocol Last Admin: 01/26/17 22:22 Dose: 2 units Lactobacillus Acidophilus (Bacid Acidophilus) 1 cap PO DAILY [facility] Last Admin: 01/26/17 12:15 Dose: 1 cap Lisinopril (Zestril) 20 mg PO DAILY [facility] Last Admin: 01/26/17 10:06 Dose: 20 mg Magnesium Oxide (Mag-Ox) 400 mg PO BID [facility] Stop: 01/27/17 18:01 Oxycodone/Acetaminophen (Percocet 5/325 Mg Tab) 1 tab PO Q12H PRN PRN Reason: Pain, moderate (4-7) Stop: 01/29/17 06:17 Potassium Chloride (K-Dur 20 Meq Er Tab) 40 meq PO Q3 [facility] Stop: 01/27/17 12:01 Sucralfate (Carafate Oral Susp) 1 gm PO 0600,1600 [facility] Last Admin: 01/27/17 06:05 Dose: 1 gm - Labs Labs: 01/27/17 07:00 01/27/17 07:00 - Constitutional Appears: No Acute Distress - Head Exam Head Exam: ATRAUMATIC, NORMAL INSPECTION, NORMOCEPHALIC - Eye Exam Eye Exam: EOMI, Normal appearance, PERRL Pupil Exam: NORMAL ACCOMODATION, PERRL - ENT Exam ENT Exam: Mucous Membranes Moist, Normal Exam - Neck Exam Neck Exam: Full ROM, Normal Inspection - Respiratory Exam Respiratory Exam: Clear to Ausculation Bilateral, NORMAL BREATHING PATTERN. absent: Rales, Rhonchi, Wheezes, Respiratory Distress, Stridor - Cardiovascular Exam Cardiovascular Exam: REGULAR RHYTHM, +S1, +S2 - GI/Abdominal Exam GI & Abdominal Exam: Soft, Normal Bowel Sounds. absent: Distended, Firm, Guarding, Rigid, Tenderness - Extremities Exam Extremities Exam: Pedal Edema, Tenderness - Back Exam Back Exam: NORMAL INSPECTION - Neurological Exam Neurological Exam: Alert, Awake, Oriented x3 - Psychiatric Exam Psychiatric exam: Normal Affect, Normal Mood - Skin Skin Exam: Abrasion, Dry, Rash, Warm Assessment and Plan - Assessment and Plan (Free Text) Assessment: 1) Fall likely mechanical 2nd to gait instability 2) Severe Hypokalemia likely 2nd to diuretics. 3) Chronic transaminitis likely crohn related 4) HTN, 5) COPD, 6) NIDDM2, 7) OA, 8) pyoderma gangrenosum, 9) PUD, 10) morbidly obese, 11) Crohn's disease, 12) esophagitis, 13) recent biopsy for a renal cyst 14) Hypomagnesemia 2nd to diuretics. Plan: Will replete with 120 meq of k-dur, and magnesium, and recheck bmp at 3 pm. Will continue with lasix, lisinopril for htn and chf. Patient is also on percocet for pain . Patient is on carafate and lactobacillus for PUD and chronic diarrhea. Glucotrol and ISS for diabetes. Psych, neurology, and cardiology recommendations noted. Pending orthostatic BP. Dispo- home with services. Patient seen, examined, and case discussed with Dr Chiang. <Giovany Chiang - Last Filed: 01/27/17 18:37> Objective - Vital Signs/Intake and Output Vital Signs (last 24 hours): Temp Pulse Resp BP Pulse Ox 98.1 F 91 H 20 108/83 97 01/27/17 06:00 01/27/17 10:54 01/27/17 06:00 01/27/17 17:54 01/27/17 06:00 - Medications Medications: Current Medications Acetaminophen (Tylenol 325mg Tab) 650 mg PO Q6H PRN PRN Reason: Fever >100.4 F Enoxaparin Sodium (Lovenox) 40 mg SC DAILY [facility] PRN Reason: Protocol Last Admin: 01/27/17 10:54 Dose: 40 mg Furosemide (Lasix) 40 mg PO BID [facility] Last Admin: 01/27/17 17:54 Dose: 40 mg Glipizide (Glucotrol) 5 mg PO DAILY [facility] Last Admin: 01/27/17 10:54 Dose: 5 mg Insulin Human Regular (Humulin R Low) 0 units SC ACHS [facility] PRN Reason: Protocol Last Admin: 01/27/17 17:52 Dose: Not Given Lactobacillus Acidophilus (Bacid Acidophilus) 1 cap PO DAILY [facility] Last Admin: 01/27/17 10:54 Dose: 1 cap Lisinopril (Zestril) 20 mg PO DAILY [facility] Last Admin: 01/27/17 10:54 Dose: 20 mg Oxycodone/Acetaminophen (Percocet 5/325 Mg Tab) 1 tab PO Q12H PRN PRN Reason: Pain, moderate (4-7) Stop: 01/29/17 06:17 Potassium Chloride (K-Dur 20 Meq Er Tab) 40 meq PO Q3 [facility] Stop: 01/27/17 21:01 Last Admin: 01/27/17 17:53 Dose: 40 meq Sucralfate (Carafate Oral Susp) 1 gm PO 0600,1600 [facility] Last Admin: 01/27/17 16:25 Dose: 1 gm Assessment and Plan - Assessment and Plan (Free Text) Plan: Pt seen and examined. Note of resident reviewed and I agree with. Brian Hutchinson. Pt's K was replaced. Dr Zapata evaluated the pt. Advised to walk. PT did evaluate the pt. Eating ok. No syncope.
[2017-01-27] MEDS ORDERED: Potassium Chloride 20 mEq ER Tab PO SCH (09:00)
--- NOTE | 2017-01-27 09:46 | CARD ---
APPROVED REPORT EKG Measurement Heart [id number] <Conclusion> Normal sinus rhythm Low voltage QRS Leftward axis Possible IMI, age unknown NSSTW changes No change
[2017-01-27] MEDS: Furosemide 40 mg/5 mL Oral Soln UD PO SCH ×2 (10:50→17:54)
[2017-01-27] MEDS: Lactobacillus Acidophilus 500 MU Cap PO SCH (10:54)
[2017-01-27] MEDS: Enoxaparin 40 mg Syringe SC SCH (10:54)
[2017-01-27] MEDS: Magnesium Oxide 400 mg Tab UD PO SCH ×2 (10:55→17:54)
[2017-01-27] MEDS ORDERED: Magnesium Sulfate 2 GM in Sodium Chloride 0.9% 100 ML IVPB ONE ×2 (11:00→12:05)
[2017-01-27 13:50] LABS: BLOOD UREA NITROGEN 9 mg/dL (7-21); CALCIUM 8.9 mg/dL (8.4-10.5); GFR AFRICAN-AMERICAN > 60; GFR NON-AFRICAN AMERICAN > 60; MAGNESIUM 1.3 mg/dL (1.7-2.2)
--- NOTE | 2017-01-27 15:40 | PN ---
DATE: 01/27/2017 REASON FOR CONSULTATION: Followup of status post fall, cardiac evaluation, syncope. SUBJECTIVE: The patient denies any chest pain, shortness of breath, or any palpitation. Feels okay and wanted to be discontinue telemetry, so she can be mobile. PHYSICAL EXAMINATION: GENERAL: Lying flat in the bed, not in apparent distress. VITAL SIGNS: As follows: Temperature afebrile, heart rate 91, and blood pressure 135/70. HEENT: PERRLA. Extraocular muscles are intact. NECK: Supple. No carotid bruits or thyromegaly. HEART: S1 and S2. Regular. CHEST: Clear to auscultation. ABDOMEN: Soft. EXTREMITIES: Clubbing and cyanosis negative. LABORATORY DATA: Blood workup as follows: WBC 7, hemoglobin 10.3, hematocrit 33.0, and platelet count 291. Chemistry shows sodium 139, potassium 2.6, chloride 101, carbon dioxide 32, anion gap of 9, BUN 9, and creatinine 0.6. Total protein 5.7, albumin 2.9, and albumin-globulin ratio 1. Triglycerides 141, total cholesterol 173, LDL 126, and HDL 36. TSH 0.71. IMPRESSION: A 71-year-old obese with past medical history significant for hypertension, who claims that she did not lost her conscious and she did not pass out, fell and slipped at the bathing tub and then crawled in her room and laid there for about 2 days. Denies any chest pain or shortness of breath, or palpitation. Denies any dizziness. So far no evidence of acute myocardial infarction. No evidence acute coronary syndrome. History of hypertension, hyperlipidemia, rule out structural heart disease. RECOMMENDATIONS: We will get echocardiogram today, supplement electrolytes, as the patient is severely hypokalemic, the reason is not clear why the patient is not on any diuretics at home, history of obesity, diabetes, hypertension, and hyperlipidemia. Continue aggressively supplement potassium. Continue DVT prophylaxis, monitor electrolytes, we will get echo to assess LV function. We will follow. We will discontinue telemetry. The patient wanted to get the discontinue telemetry out and we will get echo to assess LV function. Repeat laboratory in the morning. We will discontinue telemetry upon the patient's request. She wanted to be more mobile. Thank you Dr. Baca for providing me the opportunity in taking care of patient, Jaclyn Fritz. Jaquan Zapata MD
[2017-01-27] MEDS: Potassium Chloride 20 mEq ER Tab PO SCH ×2 (17:53→22:25)
[2017-01-27 19:07] VITALS: O2SAT 98
[2017-01-28] MEDS: Sucralfate 1 gm/10 ml Oral Susp UD PO SCH ×2 (06:15→17:23)
[2017-01-28 06:33] LABS: BASO # 0.06 K/mm3 (0.0-2.0); BASO % 0.8 % (0.0-3.0); EOS # 0.3 (0.0-0.7); EOS % 4.3 % (1.5-5.0); GRAN # 4.07 (1.4-6.5); GRAN % 54.5 % (50.0-68.0); HEMOGLOBIN 10.5 g/dL (12.0-16.0); LYMPH # 2.2 (1.2-3.4); LYMPH % 29.8 % (22.0-35.0); MEAN CELL VOLUME 89.2 fl (80.0-105.0); MEAN CORPUSCULAR HEMOGLOBIN 28.2 pg (25.0-35.0); MEAN CORPUSCULAR HGB CONC 31.6 g/dl (31.0-37.0); MEAN PLATELET VOLUME 8.8 fl (7.0-11.0); MONO # 0.8 (0.1-0.6); MONO % 10.6 % (1.0-6.0); PLATELET COUNT 313 10^3/uL (120.0-450.0); RBC 3.72 10^6/uL (3.5-6.1); WHITE BLOOD COUNT 7.5 10^3/ul (4.5-11.0)
[2017-01-28 06:44] LABS: ALBUMIN 2.9 g/dL (3.0-4.8); ALT/SGPT 44 U/L (7-56); AST/SGOT 30 U/L (15-39); BLOOD UREA NITROGEN 8 mg/dL (7-21); CALCIUM 8.4 mg/dL (8.4-10.5); GFR AFRICAN-AMERICAN > 60; GFR NON-AFRICAN AMERICAN > 60; MAGNESIUM 2.3 mg/dL (1.7-2.2)
[2017-01-28] MEDS ORDERED: Potassium Chloride 20 mEq ER Tab PO ONE (08:11)
--- NOTE | 2017-01-28 08:12 | CP.PCM.DIS ---
<Serena Baxter - Last Filed: 01/28/17 12:28> Provider - Provider Date of Admission: 01/27/17 16:06 Attending physician: Giovany Chiang MD Primary care physician: Giovany Chiang MD Consults: Cardiology- Dr Zapata Neurology: Dr Shi Psych: Dr Haq Time Spent in preparation of Discharge (in minutes): 45 Diagnosis - Discharge Diagnosis (1) Gait instability Status: Chronic (2) Fall Status: Acute (3) Hypokalemia due to loss of potassium Status: Resolved (4) Hypomagnesemia Status: Resolved (5) Uncontrolled diabetes mellitus Status: Chronic (6) Morbidly obese Status: Chronic (7) Crohn disease Status: Chronic (8) HTN (hypertension) Status: Chronic (9) CHF (congestive heart failure) Status: Chronic (10) COPD (chronic obstructive pulmonary disease) Status: Chronic (11) Osteoarthritis Status: Chronic (12) PUD (peptic ulcer disease) Status: Chronic (13) Dependent edema Status: Chronic Hospital Course - Lab Results Lab Results: Most Recent Lab Values WBC 7.5 10^3/ul (4.5-11.0) 01/28/17 05:15 RBC 3.72 10^6/uL (3.5-6.1) 01/28/17 05:15 Hgb 10.5 g/dL (12.0-16.0) L 01/28/17 05:15 Hct 33.2 % (36.0-48.0) L 01/28/17 05:15 MCV 89.2 fl (80.0-105.0) 01/28/17 05:15 MCH 28.2 pg (25.0-35.0) 01/28/17 05:15 MCHC 31.6 g/dl (31.0-37.0) 01/28/17 05:15 RDW 16.0 % (11.5-14.5) H 01/28/17 05:15 Plt Count 313 10^3/uL (120.0-450.0) 01/28/17 05:15 MPV 8.8 fl (7.0-11.0) 01/28/17 05:15 Gran % 54.5 % (50.0-68.0) 01/28/17 05:15 Lymph % (Auto) 29.8 % (22.0-35.0) 01/28/17 05:15 [place] % (Auto) 10.6 % (1.0-6.0) H 01/28/17 05:15 Eos % (Auto) 4.3 % (1.5-5.0) 01/28/17 05:15 Baso % (Auto) 0.8 % (0.0-3.0) 01/28/17 05:15 Gran # 4.07 (1.4-6.5) 01/28/17 05:15 Lymph # 2.2 (1.2-3.4) 01/28/17 05:15 [place] # 0.8 (0.1-0.6) H 01/28/17 05:15 Eos # 0.3 (0.0-0.7) 01/28/17 05:15 Baso # 0.06 K/mm3 (0.0-2.0) 01/28/17 05:15 pO2 28 mm/Hg (30-55) L 01/25/17 20:15 VBG pH 7.38 (7.32-7.43) 01/25/17 20:15 VBG pCO2 50.0 (40-60) 01/25/17 20:15 VBG HCO3 29.6 mmol/l (21-28) H 01/25/17 20:15 VBG Total CO2 31.1 mmol.L (22-28) H 01/25/17 20:15 VBG O2 Sat (Calc) 55.8 % (40-65) 01/25/17 20:15 VBG Base Excess 3.4 mmol/L (0.0-2.0) H 01/25/17 20:15 VBG Potassium 3.2 mmol/L (3.6-5.2) L 01/25/17 20:15 Sodium 143.0 mmol/L (132-148) 01/25/17 20:15 Chloride 110.0 mmol/L (98-107) H 01/25/17 20:15 Glucose 105 mg/dl (65-105) 01/25/17 20:15 Lactate 1.3 mmol/L (0.7-2.1) 01/25/17 20:15 FiO2 21.0 % 01/25/17 20:15 Sodium 142 mmol/L (132-148) 01/28/17 05:15 Potassium 3.7 mmol/L (3.6-5.0) 01/28/17 05:15 Chloride 105 mmol/L (98-107) 01/28/17 05:15 Carbon Dioxide 29 mmol/L (21-33) 01/28/17 05:15 Anion Gap 12 (10-20) 01/28/17 05:15 BUN 8 mg/dL (7-21) 01/28/17 05:15 Creatinine 0.7 mg/dL (0.5-1.4) 01/28/17 05:15 Est GFR ( Amer) > 60 01/28/17 05:15 Est GFR (Non-Af Amer) > 60 01/28/17 05:15 POC Glucose (mg/dL) 183 mg/dL (65-110) H 01/28/17 07:40 Random Glucose 153 mg/dL (70-110) H 01/28/17 05:15 Hemoglobin A1c 11.2 % (4.2-6.5) H 01/27/17 07:00 Calcium 8.4 mg/dL (8.4-10.5) 01/28/17 05:15 Phosphorus 3.3 mg/dL (2.5-4.5) 01/28/17 05:15 Magnesium 2.3 mg/dL (1.7-2.2) H 01/28/17 05:15 Total Bilirubin 0.5 mg/dL (0.2-1.3) 01/28/17 05:15 AST 30 U/L (15-39) 01/28/17 05:15 ALT 44 U/L (7-56) 01/28/17 05:15 Alkaline Phosphatase 93 U/L (38-133) 01/28/17 05:15 Lactate Dehydrogenase 873 U/L (333-699) H 01/26/17 12:33 Total Creatine Kinase 64 U/L (35-230) 01/26/17 12:33 Troponin I < 0.01 ng/mL 01/26/17 12:33 NT-Pro-B Natriuret Pep 438 pg/mL (0-450) 01/26/17 12:33 Total Protein 5.9 g/dL (5.8-8.3) 01/28/17 05:15 Albumin 2.9 g/dL (3.0-4.8) L 01/28/17 05:15 Globulin 3.0 gm/dL 01/28/17 05:15 Albumin/Globulin Ratio 1.0 (1.1-1.8) L 01/28/17 05:15 Triglycerides 141 mg/dL (35-160) 01/27/17 07:00 Cholesterol 173 mg/dL (130-200) 01/27/17 07:00 LDL Cholesterol Direct 126 mg/dL (0-129) 01/27/17 07:00 HDL Cholesterol 36 mg/dL (29-60) 01/27/17 07:00 TSH 3rd Generation 0.71 mIU/mL (0.46-4.68) 01/26/17 12:33 Venous Blood Potassium 3.2 mmol/L (3.6-5.2) L 01/25/17 20:15 Urine Color Yellow (YELLOW) 01/26/17 06:15 Urine Appearance Sl cloudy (CLEAR) 01/26/17 06:15 Urine pH 5.5 (4.7-8.0) 01/26/17 06:15 Ur Specific [place] >= 1.030 (1.005-1.035) 01/26/17 06:15 Urine Protein Trace mg/dL (<30 mg/dL) H 01/26/17 06:15 Urine Glucose (UA) Negative mg/dL (NEGATIVE) 01/26/17 06:15 Urine Ketones 15 mg/dL (NEGATIVE) H 01/26/17 06:15 Urine Blood Small (NEGATIVE) H 01/26/17 06:15 Urine Nitrate Negative (NEGATIVE) 01/26/17 06:15 Urine Bilirubin Small (NEGATIVE) H 01/26/17 06:15 Urine Urobilinogen 0.2 E.U./dL (<1 E.U./dL) 01/26/17 06:15 Ur Leukocyte Esterase Large Pranav/uL (NEGATIVE) H 01/26/17 06:15 Urine RBC 1 - 3 /hpf (0-2) 01/26/17 06:15 Urine WBC 10 - 15 /hpf (0-6) 01/26/17 06:15 Ur Epithelial Cells 1 - 3 /hpf (0-5) 01/26/17 06:15 Urine Bacteria Mod (NEG) 01/26/17 06:15 - Hospital Course Hospital Course: Patient is a 71 y/o with PMH of htn, copd, NIDDM2, OA, pyoderma gangrenosum, PUD , morbidly obese, crohn's disease, esophagitis, recent biopsy for a renal cyst presenting s/p fall while coming out of the shower over the weekend. Patient denies LOC, was not able to get herself up from the ground after the fall. Patient was very weak upon presentation, thus was admitted for further evaluation. Neuro, cardiology and psych were consulted. Patient's lab was normal except electrolytes imbalance which were repleted. There were no events on tele. [place] cultures with no growth after 48 hrs. Patient reported she would prefer to go home. Patient was also seen by PT and was cleared to go home with home service. Patient will follow up with Dr Chiang in 1 week. Diet: Heart healthy, low carb diet with 2 gm of sodium. - Date & Time of H&P Date of H&P: 01/26/17 Time of H&P: 09:42 Discharge Exam - Head Exam Head Exam: ATRAUMATIC, NORMAL INSPECTION, NORMOCEPHALIC - Eye Exam Eye Exam: EOMI, Normal appearance, PERRL Pupil Exam: NORMAL ACCOMODATION, PERRL - ENT Exam ENT Exam: Mucous Membranes Moist - Neck Exam Neck exam: Normal Inspection - Respiratory Exam Respiratory Exam: Clear to PA & Lateral, NORMAL BREATHING PATTERN, UNREMARKABLE. absent: Rales, Rhonchi, Wheezes, Respiratory Distress, Stridor - Cardiovascular Exam Cardiovascular Exam: REGULAR RHYTHM, +S1, +S2. absent: Systolic Murmur - GI/Abdominal Exam GI & Abdominal Exam: Normal Bowel Sounds, Soft, Unremarkable. absent: Distended , Firm, Guarding, Rigid, Tenderness Additional comments: Obese abdomen. - Extremities Exam Extremities exam: pedal edema - Back Exam Back exam: NORMAL INSPECTION - Neurological Exam Neurological exam: Alert, CN II-XII Intact, Oriented x3, Reflexes Normal - Psychiatric Exam Psychiatric exam: Normal Affect, Normal Mood - Skin Skin Exam: Dry, Intact, Normal Color, Warm Discharge Plan - Discharge Medications Prescriptions: Furosemide [Lasix] 40 mg PO DAILY #30 tab - Follow Up Plan Condition: STABLE Disposition: HOME/ ROUTINE Patient education suggested?: Yes Instructions: Hypokalemia (DC), Syncope (DC), Fall Prevention (DC) Additional Instructions: Please follow up with Dr Chiang in 1 week Continue your home medications as prescribed Your diabetes is not controlled, you will need to monitor your diet, avoid carbohydrate rich foods. Take your time when you get up from siting to standing position to walking, Try to keep you house free of objects on the floor to prevent you from falling. Please come back if the symptoms worsens or persists. Pt seen and examined by me. I reviewed the note and agree with the resident. Able to ambulate. Referrals: Giovany Chiang MD [Primary Care Provider] - Follow up with primary <Giovany Chiang - Last Filed: 01/28/17 21:26> Provider - Provider Date of Admission: 01/27/17 16:06 Attending physician: Giovany Chiang MD Primary care physician: Giovany Chiang MD Hospital Course - Lab Results Lab Results: Most Recent Lab Values WBC 7.5 10^3/ul (4.5-11.0) 01/28/17 05:15 RBC 3.72 10^6/uL (3.5-6.1) 01/28/17 05:15 Hgb 10.5 g/dL (12.0-16.0) L 01/28/17 05:15 Hct 33.2 % (36.0-48.0) L 01/28/17 05:15 MCV 89.2 fl (80.0-105.0) 01/28/17 05:15 MCH 28.2 pg (25.0-35.0) 01/28/17 05:15 MCHC 31.6 g/dl (31.0-37.0) 01/28/17 05:15 RDW 16.0 % (11.5-14.5) H 01/28/17 05:15 Plt Count 313 10^3/uL (120.0-450.0) 01/28/17 05:15 MPV 8.8 fl (7.0-11.0) 01/28/17 05:15 Gran % 54.5 % (50.0-68.0) 01/28/17 05:15 Lymph % (Auto) 29.8 % (22.0-35.0) 01/28/17 05:15 [place] % (Auto) 10.6 % (1.0-6.0) H 01/28/17 05:15 Eos % (Auto) 4.3 % (1.5-5.0) 01/28/17 05:15 Baso % (Auto) 0.8 % (0.0-3.0) 01/28/17 05:15 Gran # 4.07 (1.4-6.5) 01/28/17 05:15 Lymph # 2.2 (1.2-3.4) 01/28/17 05:15 [place] # 0.8 (0.1-0.6) H 01/28/17 05:15 Eos # 0.3 (0.0-0.7) 01/28/17 05:15 Baso # 0.06 K/mm3 (0.0-2.0) 01/28/17 05:15 pO2 28 mm/Hg (30-55) L 01/25/17 20:15 VBG pH 7.38 (7.32-7.43) 01/25/17 20:15 VBG pCO2 50.0 (40-60) 01/25/17 20:15 VBG HCO3 29.6 mmol/l (21-28) H 01/25/17 20:15 VBG Total CO2 31.1 mmol.L (22-28) H 01/25/17 20:15 VBG O2 Sat (Calc) 55.8 % (40-65) 01/25/17 20:15 VBG Base Excess 3.4 mmol/L (0.0-2.0) H 01/25/17 20:15 VBG Potassium 3.2 mmol/L (3.6-5.2) L 01/25/17 20:15 Sodium 143.0 mmol/L (132-148) 01/25/17 20:15 Chloride 110.0 mmol/L (98-107) H 01/25/17 20:15 Glucose 105 mg/dl (65-105) 01/25/17 20:15 Lactate 1.3 mmol/L (0.7-2.1) 01/25/17 20:15 FiO2 21.0 % 01/25/17 20:15 Sodium 142 mmol/L (132-148) 01/28/17 05:15 Potassium 3.7 mmol/L (3.6-5.0) 01/28/17 05:15 Chloride 105 mmol/L (98-107) 01/28/17 05:15 Carbon Dioxide 29 mmol/L (21-33) 01/28/17 05:15 Anion Gap 12 (10-20) 01/28/17 05:15 BUN 8 mg/dL (7-21) 01/28/17 05:15 Creatinine 0.7 mg/dL (0.5-1.4) 01/28/17 05:15 Est GFR ( Amer) > 60 01/28/17 05:15 Est GFR (Non-Af Amer) > 60 01/28/17 05:15 POC Glucose (mg/dL) 208 mg/dL (65-110) H 01/28/17 11:32 Random Glucose 153 mg/dL (70-110) H 01/28/17 05:15 Hemoglobin A1c 11.2 % (4.2-6.5) H 01/27/17 07:00 Calcium 8.4 mg/dL (8.4-10.5) 01/28/17 05:15 Phosphorus 3.3 mg/dL (2.5-4.5) 01/28/17 05:15 Magnesium 2.3 mg/dL (1.7-2.2) H 01/28/17 05:15 Total Bilirubin 0.5 mg/dL (0.2-1.3) 01/28/17 05:15 AST 30 U/L (15-39) 01/28/17 05:15 ALT 44 U/L (7-56) 01/28/17 05:15 Alkaline Phosphatase 93 U/L (38-133) 01/28/17 05:15 Lactate Dehydrogenase 873 U/L (333-699) H 01/26/17 12:33 Total Creatine Kinase 64 U/L (35-230) 01/26/17 12:33 Troponin I < 0.01 ng/mL 01/26/17 12:33 NT-Pro-B Natriuret Pep 438 pg/mL (0-450) 01/26/17 12:33 Total Protein 5.9 g/dL (5.8-8.3) 01/28/17 05:15 Albumin 2.9 g/dL (3.0-4.8) L 01/28/17 05:15 Globulin 3.0 gm/dL 01/28/17 05:15 Albumin/Globulin Ratio 1.0 (1.1-1.8) L 01/28/17 05:15 Triglycerides 141 mg/dL (35-160) 01/27/17 07:00 Cholesterol 173 mg/dL (130-200) 01/27/17 07:00 LDL Cholesterol Direct 126 mg/dL (0-129) 01/27/17 07:00 HDL Cholesterol 36 mg/dL (29-60) 01/27/17 07:00 TSH 3rd Generation 0.71 mIU/mL (0.46-4.68) 01/26/17 12:33 Venous Blood Potassium 3.2 mmol/L (3.6-5.2) L 01/25/17 20:15 Urine Color Yellow (YELLOW) 01/26/17 06:15 Urine Appearance Sl cloudy (CLEAR) 01/26/17 06:15 Urine pH 5.5 (4.7-8.0) 01/26/17 06:15 Ur Specific [place] >= 1.030 (1.005-1.035) 01/26/17 06:15 Urine Protein Trace mg/dL (<30 mg/dL) H 01/26/17 06:15 Urine Glucose (UA) Negative mg/dL (NEGATIVE) 01/26/17 06:15 Urine Ketones 15 mg/dL (NEGATIVE) H 01/26/17 06:15 Urine Blood Small (NEGATIVE) H 01/26/17 06:15 Urine Nitrate Negative (NEGATIVE) 01/26/17 06:15 Urine Bilirubin Small (NEGATIVE) H 01/26/17 06:15 Urine Urobilinogen 0.2 E.U./dL (<1 E.U./dL) 01/26/17 06:15 Ur Leukocyte Esterase Large Pranav/uL (NEGATIVE) H 01/26/17 06:15 Urine RBC 1 - 3 /hpf (0-2) 01/26/17 06:15 Urine WBC 10 - 15 /hpf (0-6) 01/26/17 06:15 Ur Epithelial Cells 1 - 3 /hpf (0-5) 01/26/17 06:15 Urine Bacteria Mod (NEG) 01/26/17 06:15
[2017-01-28] MEDS: Insulin Reg-LOW-Coverage SC SCH ×3 (08:28→17:23)
[2017-01-28] MEDS: Furosemide 40 mg/5 mL Oral Soln UD PO SCH (09:26)
[2017-01-28] MEDS: Lactobacillus Acidophilus 500 MU Cap PO SCH (09:26)
[2017-01-28] MEDS: Enoxaparin 40 mg Syringe SC SCH (09:36)
--- NOTE | 2017-01-28 16:48 | CARD ---
APPROVED REPORT EXAM: Two-dimensional and M-mode echocardiogram with Doppler and color Doppler. INDICATION LVFX//MR 2D DIMENSIONS Left Atrium (2D)2.9 (1.6-4.0cm)IVSd1.2 (0.7-1.1cm) LVDd3.5 (3.9-5.9cm)PWd1.3 (0.7-1.1cm) LVDs2.4 (2.5-4.0cm)FS (%) 32.8 % LVEF (%)62.3 (>50%) M-Mode DIMENSIONS Aortic Root2.80 (2.2-3.7cm)Aortic Cusp Exc.1.70 (1.5-2.0cm) Aortic Valve AoV Peak Uvshxsyz297.0cm/[place] Peak GR.9mmHg Mitral Valve MV E Oshvmrmo92.8cm/sMV A Dxuplooy502.0cm/sE/A ratio0.6 TDI Lateral E' Peak V4.39cm/sMedial E' Peak V6.24cm/sE/Lateral E'15.7 E/Medial E'11.0 Pulmonary Valve PV Peak Qjsaepwd49.4cm/sPV Peak Grad.3mmHg Tricuspid Valve TR Peak Xexelszp400jk/sRAP [id number] Peak Gr.35mmHg [id number] LEFT VENTRICLE The left ventricle is normal size. There is mild concentric left ventricular hypertrophy. The left ventricular function is normal.EF-60-65% There is normal LV segmental wall motion. Transmitral Doppler flow pattern is Grade III-reversible restrictive diastolic dysfunction. No left ventricle thrombus noted on this study. There is no ventricular septal defect visualized. There is no left ventricular aneurysm. There is no mass noted in the left ventricle. RIGHT VENTRICLE The right ventricle is normal size. There is normal right ventricular wall thickness. The right ventricular systolic function is normal. ATRIA The left atrium size is normal. The right atrium size is normal. The interatrial septum is intact with no evidence for an atrial septal defect. AORTIC VALVE The aortic valve is thickened but opens well. There is trace aortic regurgitation. There is no aortic valvular stenosis. There is no aortic valvular vegetation. MITRAL VALVE The mitral valve is thickened but opens well. Mitral regurgitation is trace. There is no mitral valve stenosis. There is no evidence of mitral valve prolapse. TRICUSPID VALVE The tricuspid valve leaflets are thickened , but open well. There is mild tricuspid regurgitation.RVSP-45 mmof Hg There is mild pulmonary hypertension. There is no tricuspid valve stenosis. There is no tricuspid valve prolapse or vegetation. PULMONIC VALVE The pulmonary valve is normal in structure. There is trace pulmonic valvular regurgitation. There is no pulmonic valvular stenosis. GREAT VESSELS The aortic root is normal in size. The ascending aorta is normal in size. The pulmonary artery is normal. The IVC is normal in size and collapses >50% with inspiration. PERICARDIAL EFFUSION There is no pleural effusion. There is a trivial pericardial effusion. <Conclusion> Normal chamber Size. EGF-60-65% Transmitral Doppler flow pattern is Grade III-reversible restrictive diastolic dysfunction. There is trace aortic regurgitation. Mitral regurgitation is trace. There is mild tricuspid regurgitation.RVSP-45 mmof Hg There is mild pulmonary hypertension. There is trace pulmonic valvular regurgitation. There is a trivial pericardial effusion. The IVC is normal in size and collapses >50% with inspiration. No vegetation or thrombus noted.
[2017-01-28 16:49] VITALS: BP 142/88; PULSE 108; TEMP 98.6
--- NOTE | 2017-01-28 22:49 | PN ---
DATE: 01/28/2017 LOCATION: The patient is in [facility], bed #2. REASON FOR CONSULTATION AND FOLLOWUP: Status post fall, cardiac evaluation and syncope. HISTORY OF PRESENT ILLNESS: The patient denies any chest pain, shortness of breath or palpitation. She is sitting in chair without any complaints at present. PHYSICAL EXAMINATION: VITAL SIGNS: Blood pressure 142/88, respiration 20, pulse 108 and temperature 98.6. HEENT: Head is normocephalic. Eyes; pupils normal. Conjunctiva slightly pale. NECK: JVP low. Carotid equal. Thorax, AP diameter normal. LUNGS: Clear. CARDIOVASCULAR: S1 and S2. ABDOMEN: Soft and nontender. No organomegaly. Bowel sounds are normal. EXTREMITIES: No clubbing. No cyanosis. LABORATORY DATA: WBC 7.5, hemoglobin 10.5, hematocrit 33.2 and platelets 313. Sodium 142, potassium 3.7, BUN 8, creatinine 0.7, sugar 208, calcium is 8.4, phosphorus 3.3. AST and ALT normal. DIAGNOSES: Hypertension, fall, obesity, hyperlipidemia and diabetes. PLAN: The patient is hypokalemic with corrected potassium of 3.7 today. We will continue Carafate 1 g b.i.d., glipizide 5 mg daily, furosemide 40 b.i.d., Lovenox 40 mg subq daily and Zestril 20 daily. We will continue present therapy and we will follow with you. Jaquan Guevara MD
== END 2017-01-28 18:00 | disposition home health service (06) | DRG 554 ==
LOC: ED 19:00 → ERH 23:41 → 3RSO 01-26 14:04 → OBSVTOIN 01-27 16:06
PROVIDERS: ADMIT Internal Medicine Nephrology; ATTEND Internal Medicine Nephrology
DX: M17.0 Bilateral primary osteoarthritis of knee (principal); K50.90 Crohn's disease, unspecified, without complications; I50.9 Heart failure, unspecified; J44.9 Chronic obstructive pulmonary disease, unspecified; E11.65 Type 2 diabetes mellitus with hyperglycemia; I11.0 Hypertensive heart disease with heart failure; L88 Pyoderma gangrenosum; E66.01 Morbid (severe) obesity due to excess calories; N28.1 Cyst of kidney, acquired; K20.9 Esophagitis, unspecified; H91.90 Unspecified hearing loss, unspecified ear; G47.33 Obstructive sleep apnea (adult) (pediatric); E78.5 Hyperlipidemia, unspecified; F43.21 Adjustment disorder with depressed mood; E87.6 Hypokalemia; E83.42 Hypomagnesemia; T50.2X5A Adverse effect of carbonic-anhydrase inhibitors, benzothiadiazides and other diuretics, initial encounter; K27.9 Peptic ulcer, site unspecified, unspecified as acute or chronic, without hemorrhage or perforation; Z79.84 Long term (current) use of oral hypoglycemic drugs; Z87.891 Personal history of nicotine dependence; W18.2XXA Fall in (into) shower or empty bathtub, initial encounter; Y92.002 Bathroom of unspecified non-institutional (private) residence as the place of occurrence of the external cause; Y93.89 Activity, other specified

== ENCOUNTER 2017-10-20 07:20 | Day surgery (SDC) | payer MEDICARE ==
[2017-10-12 11:40] VITALS: BMI 39.4
[2017-10-20] MEDS ORDERED: Propofol 10 mg/ml Inj (20 ML) ONE (09:23)
[2017-10-20] MEDS ORDERED: Sodium Chloride 0.9% 1,000 ML IV SCH (10:00)
[2017-10-20 10:19] VITALS: PULSE 79
[2017-10-20 10:43] VITALS: BP 120/58; RESP 19; TEMP 98.4; O2SAT 96
== END 2017-10-20 11:04 | disposition home or self-care (01) ==
LOC: ENDO 07:20
PROVIDERS: ATTEND Internal Medicine Gastroenterology
DX: K31.4 Gastric diverticulum (principal); K29.50 Unspecified chronic gastritis without bleeding; K25.7 Chronic gastric ulcer without hemorrhage or perforation; K26.7 Chronic duodenal ulcer without hemorrhage or perforation; E11.9 Type 2 diabetes mellitus without complications
CPT/HCPCS: 43239; 82948; 88305; 88312; 88342; J2704; J7040 ×2

== ENCOUNTER 2018-07-30 10:07 | Day surgery (SDC) | payer MEDICARE ==
[2017-10-12 11:40] VITALS: BMI 39.4
[2018-07-30] MEDS ORDERED: Propofol 10 mg/ml Inj (20 ML) ONE (11:32)
[2018-07-30] MEDS ORDERED: Sodium Chloride 0.9% 1,000 ML IV SCH (11:45)
[2018-07-30 12:39] VITALS: RESP 16
[2018-07-30 13:55] VITALS: TEMP 97.3
[2018-07-30 13:57] VITALS: BP 107/71
[2018-07-30 14:29] VITALS: PULSE 88; O2SAT 95
== END 2018-07-30 14:27 | disposition home or self-care (01) ==
LOC: ENDO 10:07
PROVIDERS: ATTEND Internal Medicine Gastroenterology
DX: D12.2 Benign neoplasm of ascending colon (principal); D12.8 Benign neoplasm of rectum; D12.5 Benign neoplasm of sigmoid colon; K50.10 Crohn's disease of large intestine without complications; K57.30 Diverticulosis of large intestine without perforation or abscess without bleeding; K64.8 Other hemorrhoids; K29.30 Chronic superficial gastritis without bleeding; K21.0 Gastro-esophageal reflux disease with esophagitis; K31.4 Gastric diverticulum
CPT/HCPCS: 43239; 45380; 45384; 45385; 88305; 88312; 88342; J2001; J2704; J7030; J7040